=== PATIENT | female | born 1960 | race Caucasian/White ===

== ENCOUNTER 2017-06-25 14:29 | Observation (INO) | payer MEDICARE, SELFPAY ==
[2017-06-25] VITALS (12 sets, daily range): BP systolic 113–154; BP diastolic 69–100; PULSE 84–112; RESP 12–22; TEMP 37–37.2; O2SAT 94–99; BMI 37.7; BMI 37.3
--- NOTE | 2017-06-25 15:08 | CT_ITS ---
STUDY: CTA CHEST REASON FOR EXAM: Female, 56 years old. Chest heaviness and increased shortness of breath. RADIATION DOSAGE (If Supplied By Facility): CTDIvol = ( 12.93 ) mGy, DLP = ( 679.01 ) mGycm TECHNIQUE: The examination was performed with the intravenous administration of 100CC ml of Isovue 370 contrast material. Post-processing of the angiographic images was performed, with multiplanar reformation and 3D reconstruction. Individualized dose optimization techniques were used for this CT. COMPARISON: None. FINDINGS: Normal enhancement of the main pulmonary artery and right and left pulmonary arteries. Normal enhancement of the bilateral peripheral pulmonary arteries. There is no demonstrated pulmonary embolism. Normal thoracic aorta and visualized great vessels. There is no demonstrated aortic dissection. Normal heart and pericardium. Normal mediastinum. Normal hilar regions. Normal visualized trachea and bronchi. The lungs are well expanded. Normal pulmonary parenchyma. Normal pleura. Normal chest wall structures. There is mild multilevel thoracic spondylosis. There is a small hiatal hernia. There is a calcified gallstone. CT/CTA Chest W/WO Contrast IMPRESSION: No CTA demonstrated pulmonary embolism or arterial dissection. Electronically Signed: Georgia Leach MD at 17:29 EST , Service support ,
--- NOTE | 2017-06-25 15:08 | EKG12_ITS ---
Test Reason : CHEST HEAVINESS Blood Pressure : / mmHG Vent. Rate : 106 BPM Atrial Rate : 106 BPM P-R Int : 134 ms QRS Dur : 080 ms QT Int : 350 ms P-R-T Axes : 048 120 051 degrees QTc Int : 464 ms Sinus tachycardia Otherwise normal ECG Confirmed by MAYRA LEDESMA, PAUL ([id number]), photographic editor LISA ETIENNE ([id number]) on 06/27/2017 3:17:58 PM Referred By: Confirmed By:PAUL NUNEZ MD
--- NOTE | 2017-06-25 15:16 | ED.VISSUMM ---
- ER Visit Summary Date of Service: 06/25/17 Chief Complaint: Chest heaviness History of Present Illness: The patient is a 56 F presents with intermittent chest heaviness for the past 2 days. She states this is worsened with exertion. She also notes shortness of breath with exertion. She has had intermittent episodes of diaphoresis. She denies nausea or vomiting. She states she has a history of PE. She has a clotting disorder and is on Coumadin chronically. She states her INR has been subtherapeutic recently. She has a history of hypercholesterolemia and unknown family history of heart disease. Physical Examination: Vitals are stable. Patient is afebrile. Alert no acute distress. HEENT exam is unremarkable. Neck is supple. Lungs are clear and equal bilaterally. Heart is regular and tachycardic Abdomen is soft nontender nondistended. Extremities are symmetric edema Skin is warm and dry. No focal neurologic deficit. Remainder of exam is unremarkable. Emergency Department Course and Treatment: EKG is sinus tachycardia rate of 106. She was given aspirin on arrival. Chest x-ray shows no acute process. CBC, chemistries unremarkable. INR is 1.6. Troponin is less than 0.02. CTA chest shows no evidence of PE or dissection. On reevaluation, patient is chest pain-free. Due to her exertional symptoms, I feel she should be admitted for further cardiac workup. Discussed with the hospitalist. Disposition: Observation Impression: Chest pain This note was generated with [employer] dictation software. It may contain incorrect words, spelling, and punctuation that were not noted in review of the chart prior to signing ED Disposition - Plan for ED Patient: Chief Complaint: Shortness of Breath Referrals: Ruperto Jenkins MD [Primary Care Provider] -
[2017-06-25] MEDS: Aspirin 81 MG TAB.CHEW 324 MG PO (15:24)
--- NOTE | 2017-06-25 15:25 | RAD_ITS ---
STUDY: X-RAY CHEST REASON FOR EXAM: Female, 56 years old. Chest heaviness and shortness of breath. TECHNIQUE: Single AP portable view of the chest. COMPARISON: 06/09/2015. FINDINGS: The lungs are clear and expanded. There is no demonstrated pleural abnormality. Normal size heart. Normal mediastinum and royer. Normal visualized pulmonary arteries. Normal visualized aortic arch and descending thoracic aorta. Normal visualized thoracic spine. Normal visualized ribs, clavicles, and shoulders. There is no demonstrated abnormality of the visualized soft tissue structures of the upper abdomen. RAD/Chest 1 View (Portable) IMPRESSION: No active pulmonary disease. Electronically Signed: Wu Huynh MD at 15:43 EST Tel , Service support ,
[2017-06-25 15:39] LABS: Absolute Lymphocyte Count 1.53 X10^3/ul (0.83-4.51); Absolute Neutrophil Count 2.8 X10^3/uL (2.0-7.7); Basophil# 0.01 X10^3/uL; Basophil% 0.2 % (0-1); Eosinophil# 0.14 X10^3/uL; Eosinophils% 2.9 % (0-5); Hemoglobin 12.2 g/dl (12.0-15.0); Lymphocyte # 1.53 X10^3/ul (4.0); Lymphocyte % 32.1 % (19-41); Mean Corp Hgb Conc 32.1 g/gl (32-36); Mean Corpuscular Volume 90.5 fL (81-99); Monocyte# 0.29 X10^3/uL; Monocyte% 6.1 % (0-10); Neutrophil # 2.79 X10^3/uL (2.7-7.7); Neutrophil % 58.5 % (47-70); POSITIVE COUNT NO; POSITIVE DIFFERENTIAL NO; POSITIVE MORPHOLOGY NO; Platelet Count 159 K/mm3 (150-450); RBC Distribution Width CV 12.2 % (11.6-14.6); RBC Distribution Width SD 39.8 fl (35.1-43.9); White Blood Count 4.8 K/mm3 (4.4-11.0)
--- NOTE | 2017-06-25 15:50 | NURSING ---
PRO TIME HEMOLIZED
[2017-06-25 16:02] LABS: Anion Gap 6 (5-15); BUN 14 mg/dL (7-18); BUN/Creat Ratio 18.3 RATIO (10-20); Calcium,Total 8.9 mg/dL (8.5-10.1); Chloride 107 mmol/L (98-107); Creatinine, Serum 0.76 mg/dL (0.55-1.02); EST Glomerular Filtration Rate 83 mL/min (>60); Est Glom Filt Rate - Afr Amer 100 mL/min (>60); Estimated Creatinine Clearance 70.52 ml/min; Glucose 78 mg/dL (74-106); Potassium 4.4 mmol/L (3.5-5.1); Sodium Level 141 mmol/L (136-145)
[2017-06-25 16:08] LABS: International Normalized Ratio 1.6; Prothrombin Time (Protime)PT. 18.8 SECONDS (11.7-14.9)
--- NOTE | 2017-06-25 18:52 | HP.PCM_ITS ---
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 Patient feels chest heaviness retrosternal, with radiation to the right side of neck on mild exertion like walking within home or the parking lot. Patient also gets headache, diplopia because of her history of migraine, fibromyalgia and generalized anxiety disorder. She had a stress test and cardiac cath about 10 years ago and were normal. In ER, initial workup was negative. INR subtherapeutic 1.6. EKG shows sinus tachycardia at 106 bpm with T inversion in V1 to V2. Previous EKG in May 2015 similar T inversion. 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) Obesity (BMI 35.0-39.9 without comorbidity) (Chronic) Allergies morphine Allergy (Verified 06/25/17 14:30) Rash oxycodone HCl [From OxyContin] Allergy (Verified 06/25/17 14:30) Vomiting Penicillins [PCN] Allergy (Verified 06/25/17 14:30) Swelling ARTIFICIAL SWEETENER Allergy (Uncoded 06/25/17 14:30) Swelling Home Medications: Ambulatory Orders Medication Instructions Recorded Levothyroxine [Synthroid] 150 mcg PO DAILY 04/13/13 Warfarin [Coumadin] 6 mg PO MOWEFR 04/13/13 Bupropion HCl [Wellbutrin Xl] 150 mg PO DAILY 06/25/17 Cholecalciferol (Vitamin D3) 2,000 unit PO DAILY 06/25/17 [Vitamin D3] Cyclobenzaprine [Flexeril] 10 mg PO QHS 06/25/17 Furosemide [Lasix] 20 mg PO DAILY PRN 06/25/17 Phentermine HCl [Adipex-P] 37.5 mg PO DAILY 06/25/17 Venlafaxine HCl [Venlafaxine HCl 225 mg PO DAILY 06/25/17 ER] Warfarin [Coumadin ([facility])] 3 mg PO SUTUTHSA 06/25/17 Surgical History: no surgical history 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 Denies: Chest Pain, Palpitations Respiratory: Reports: Shortness of breath upon exertion. Denies: Cough, Shortness of breath at rest, Sputum production Gastrointestinal: Denies: Abdominal Pain, Nausea, Vomiting Genitourinary: Denies: Dysuria Musculoskeletal: Denies: Joint Pain, Joint Tenderness Skin: Denies: Rash, Wounds Neurological: Denies: Numbness, Tingling, Focal weakness Psychiatric: Denies: Anxiety, Depression, Homicidal Ideations, Suicidal Ideations Hematologic/ Lymphatic: Denies: Easy Bruising, Easy Bleeding VTE Information - Inpt Only VTE Present on Admission: No VTE Mechan Device Prophylaxis: Knee High MERCEDES Hose VTE Pharm Prophylaxis ordered?: Yes Patient Problems: Active and Suspected Problems Chest pain, exertional (Acute) - Physical Exam General: Alert, Oriented x3, Cooperative HEENT: Atraumatic, PERRLA, EOMI, Normocephalic Neck: Supple, No JVD, Negative Carotid Bruits Lungs: Clear to auscultation, Normal air movement, No rhonchi, No wheeze, No rales Cardiovascular: Regular Rhythm, Normal S1, Normal S2, No murmurs, Tachycardic Abdomen: Bowel Sounds Present, Soft, Non Tender, Non-Distended Extremities: Capillary Refill Less than 3 Seconds, Edema Skin: No rashes, No breakdown Musculoskeletal: No Tenderness to Palpation of Joints or Extremities Neurological: Cranial nerves II-XII grossly intact Psych/Mental Status: Normal Affect, Appropriate Vital Signs Temp Pulse Resp BP Pulse Ox 98.9 F 87 18 131/74 H 99 06/25/17 14:31 06/25/17 18:10 06/25/17 18:10 06/25/17 18:10 06/25/17 18:10 Oxygen Flow Rate (L/min) 1 Oxygen Delivery Method Nasal Cannula Weight: 219 lb 9.286 oz Body Mass Index (BMI) 37.7 Laboratory Tests Past 24 Hrs 06/25/17 06/25/17 06/25/17 15:23 15:23 15:23 WBC 4.8 RBC 4.20 Hgb 12.2 Hct 38.0 MCV 90.5 MCH 29.0 MCHC 32.1 RDW 12.2 RDW Differential 39.8 Plt Count 159 MPV 9.0 Immature Gran % (Auto) 0.200 Neut % (Auto) 58.5 Lymph % (Auto) 32.1 Pierce % (Auto) 6.1 Eos % (Auto) 2.9 Baso % (Auto) 0.2 Absolute Neuts (auto) 2.8 Absolute Lymphs (auto) 1.53 Total Counted Not Reportable PT Cancelled INR Cancelled Sodium 141 Potassium 4.4 Chloride 107 Carbon Dioxide 28.0 Anion Gap 6 BUN 14 Creatinine 0.76 Estim Creat Clear Calc 70.52 Est GFR (MDRD) Af Amer 100 Est GFR (MDRD) Non-Af 83 BUN/Creatinine Ratio 18.3 Glucose 78 Calcium 8.9 Troponin I < 0.02 06/25/17 15:50 WBC RBC Hgb Hct MCV MCH MCHC RDW RDW Differential Plt Count MPV Immature Gran % (Auto) Neut % (Auto) Lymph % (Auto) Pierce % (Auto) Eos % (Auto) Baso % (Auto) Absolute Neuts (auto) Absolute Lymphs (auto) Total Counted PT 18.8 H INR 1.6 Sodium Potassium Chloride Carbon Dioxide Anion Gap BUN Creatinine Estim Creat Clear Calc Est GFR (MDRD) Af Amer Est GFR (MDRD) Non-Af BUN/Creatinine Ratio Glucose Calcium Troponin I Assessment/Plan Active and Suspected Problems Chest pain, exertional (Acute) The patient is a 56 year old F with multiple comorbidities including 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 Patient feels chest heaviness retrosternal, with radiation to the right side of neck on mild exertion like walking within home or the parking lot. Patient also gets headache, diplopia because of her history of migraine, fibromyalgia and generalized anxiety disorder. She had a stress test and cardiac cath about 10 years ago and were normal. In ER, initial workup was negative. INR subtherapeutic 1.6. EKG shows sinus tachycardia at 106 bpm with T inversion in V1 to V2. Previous EKG in May 2015 similar T inversion. First troponin negative. 1. Exertional chest pain with high suspicion of unstable angina: Patient is being admitted in the PCU. On ACS protocol with serial cardiac enzymes. On nitro ointment as needed, baby aspirin. Patient is already on Coumadin for history of DVT with hereditary hypercoagulable disorder. If troponin comes positive or chest pain continues, can consult cardiology. 2. 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 Check INR daily and if INR is still subtherapeutic less than 1.8, supplement with Lovenox. Next CBC tomorrow a.m. 3. hypothyroidism: Continue Synthroid. Free T4 and TSH tomorrow a.m. Other multiple comorbidities include migraine headache possible ocular migraine, fibromyalgia, generalized anxiety disorder/panic attack, insomnia cervical root impingement and osteoarthritis and varicose vein: Home medication reconciliation done. Hold Adipex-P. Clinical Impression(s) from Imaging Studies Chest CTA 06/25/17 15:08 IMPRESSION: No CTA demonstrated pulmonary embolism or arterial dissection. Chest X-Ray 06/25/17 15:25 IMPRESSION: No active pulmonary disease. Laboratory Results 06/25/17 15:23: WBC 4.8, RBC 4.20, Hgb 12.2, Hct 38.0, MCV 90.5, MCH 29.0, MCHC 32.1, RDW 12.2, RDW Differential 39.8, Plt Count 159, MPV 9.0, Immature Gran % ( Auto) 0.200, Neut % (Auto) 58.5, Lymph % (Auto) 32.1, Pierce % (Auto) 6.1, Eos % ( Auto) 2.9, Baso % (Auto) 0.2, Absolute Neuts (auto) 2.8, Absolute Lymphs (auto) 1.53, Total Counted Not Reportable 06/25/17 15:23: PT Cancelled, INR Cancelled 06/25/17 15:23: Sodium 141, Potassium 4.4, Chloride 107, Carbon Dioxide 28.0, Anion Gap 6, BUN 14, Creatinine 0.76, Estim Creat Clear Calc 70.52, Est GFR ( MDRD) Af Amer 100, Est GFR (MDRD) Non-Af 83, BUN/Creatinine Ratio 18.3, Glucose 78, Calcium 8.9, Troponin I < 0.02 06/25/17 15:50: PT 18.8 H, INR 1.6 Code Visit OBSV E&M: 20576 Initial observation care L3
[2017-06-25 20:10] LABS: BNP,B-Type NATRIURETIC PEPTIDE 5.3 pg/mL (0-100)
[2017-06-25] MEDS: Enoxaparin 100 MG/ML Syringe SC (20:16)
[2017-06-25] MEDS: Acetaminophen 325 MG Tablet 650 MG PO (20:27)
[2017-06-25] MEDS: 0.9% NaCl Peripheral Flush Adult/Peds IV (22:14)
--- NOTE | 2017-06-25 23:03 | CPS ---
pt placed on hospital bipap -could not remember home settings-pt placed on 01/20-[facility]
[2017-06-26] VITALS (15 sets, daily range): BP systolic 109–126; BP diastolic 59–74; PULSE 66–103; RESP 12–18; TEMP 36.6–37.7; O2SAT 93–96
--- NOTE | 2017-06-26 04:23 | CPS ---
pt has own bipap at home-did not know her settings-was placed on hospital bipap 01/20 21% [facility]-
[2017-06-26] MEDS: Acetaminophen 325 MG Tablet 650 MG PO ×2 (05:26→16:07)
[2017-06-26] MEDS: Levothyroxine 150 MCG Tablet PO (05:26)
[2017-06-26 06:54] LABS: International Normalized Ratio 1.7; Prothrombin Time (Protime)PT. 19.7 SECONDS (11.7-14.9)
[2017-06-26 07:23] LABS: Cholesterol 168 mg/dL (200); High Density Lipoprotein 40 mg/dL; Thyroid Stim Hormone (TSH) < 0.01 uIU/mL (0.358-3.74); Triglycerides 158 mg/dL; Very Low Density Lipoprotein 32 mg/dL (5-40)
[2017-06-26] MEDS: Aspirin E.C. 81 MG Tablet PO (09:03)
[2017-06-26] MEDS: Enoxaparin 100 MG/ML Syringe SC ×2 (13:42→21:05)
--- NOTE | 2017-06-26 14:25 | PN_ITS ---
<Steve Iglesias - Last Filed: 06/26/17 14:14> Patient Problems: Active and Suspected Problems Chest pain, exertional (Acute) Subjective: She continues to have 3/10 chest heaviness midsternally, and SOB with exertion like getting up to use the bathroom. She also feels that she is experiencing a migraine aura with diplopia, and dizziness/LH. She has an all over headache. She denies palpitations. She has no cough. She is compliant with her Cpap. She does not want to receive nitro as she gets worse headaches with it. She is on synthroid for chronically low thyroid - not because she has had thyroid ablation , surgery, or cancer. She has been on phentermine for weight loss. For migraine at home she only takes tylenol, in the past she has used imitrex. She follow Jian from [facility]. - Physical Exam General: Alert, Oriented x3, Cooperative HEENT: Atraumatic, PERRLA, EOMI, Normocephalic Neck: Supple, No JVD, Negative Carotid Bruits Lungs: Clear to auscultation, Normal air movement Cardiovascular: Regular rate, No murmurs Abdomen: Bowel Sounds Present, Soft, Non Tender Extremities: No edema, Capillary Refill Less than 3 Seconds Skin: No rashes, No breakdown Musculoskeletal: No Tenderness to Palpation of Joints or Extremities Neurological: Cranial nerves II-XII grossly intact Psych/Mental Status: Normal Affect, Appropriate Vital Signs Temp Pulse Resp BP Pulse Ox 97.8 F 90 16 109/59 L 93 06/26/17 09:00 06/26/17 10:58 06/26/17 09:11 06/26/17 09:03 06/26/17 09:00 Oxygen Delivery Method Room Air Weight: 98.6 kg Body Mass Index (BMI) 37.3 Intake and Output for Last 24 Hours 06/24/17 06/25/17 06/27/17 23:59 23:59 00:59 Intake Total 240 / 240 480 / 480 Balance 240 / 240 480 / 480 Laboratory Tests Past 24 Hrs 06/25/17 06/25/17 06/25/17 19:30 19:30 19:30 PT INR Magnesium 2.0 Troponin I < 0.02 B-Natriuretic Peptide 5.3 Triglycerides Cholesterol LDL Cholesterol VLDL Cholesterol HDL Cholesterol TSH Free T4 03/02/0206/26/17 06/26/17 23:32 06:30 06:30 PT 19.7 H INR 1.7 Magnesium Troponin I < 0.02 B-Natriuretic Peptide Triglycerides 158 Cholesterol 168 LDL Cholesterol 96 VLDL Cholesterol 32 HDL Cholesterol 40 TSH < 0.01 L Free T4 1.50 H 06/26/17 06:30 PT INR Magnesium Troponin I < 0.02 B-Natriuretic Peptide Triglycerides Cholesterol LDL Cholesterol VLDL Cholesterol HDL Cholesterol TSH Free T4 Assessment/Plan Active and Suspected Problems Chest pain, exertional (Acute) 1. Chest heaviness with exertional dyspnea - currently 06/25. Troponin negative. BNP negative. Stress test tomorrow. Conitnue aspirin. I am also concerned with her being on multiple stimulant medications including buproprion, phentermine ( held), and too high of a dose of synthroid. EKG with T wave inversions in V1 and V2. LDL 96. HTN and tachy present on admission have resolved on their own. 2. Hx of DVT - with type 1 plasminogen activator inhibitor deficiency - on coumadin - subtherapeutic. Lovenox bridge started. CTA chest negative for PE. 3. Acute migraine with aura - topamax added. Defer triptans with concern for cardiac conditions. 4. Chronic pain, fibromyalgia - continue home meds. 5. Hypothyroidism - TSH supressed, T4 high, decreased daily dose of synthroid as she is not supposed to be on a suppressive dose. 6. Obesity - diet control. At this time I advised not resuming phentermine given her chest pain. Dietary eval. DVT ppx: lovenox bridge with coumadin DC planning: pending stress results This patient was seen by Steve Iglesias PA-C under the supervision of Doctor Mayer. <Eloisa Mayer - Last Filed: 06/26/17 17:16> - Physical Exam Vital Signs Temp Pulse Resp BP Pulse Ox 97.9 F 99 18 123/60 H 94 06/26/17 15:00 06/26/17 15:00 06/26/17 15:00 06/26/17 15:00 06/26/17 15:00 Oxygen Delivery Method Room Air Weight: 98.6 kg Body Mass Index (BMI) 37.3 Intake and Output for Last 24 Hours 03/09/18 03/10/18 03/12/18 23:59 23:59 00:59 Intake Total 240 / 240 480 / 480 Balance 240 / 240 480 / 480 Laboratory Tests Past 24 Hrs 06/25/17 06/25/17 06/25/17 19:30 19:30 19:30 PT INR Magnesium 2.0 Troponin I < 0.02 B-Natriuretic Peptide 5.3 Triglycerides Cholesterol LDL Cholesterol VLDL Cholesterol HDL Cholesterol TSH Free T4 06/25/17 06/26/17 06/26/17 23:32 06:30 06:30 PT 19.7 H INR 1.7 Magnesium Troponin I < 0.02 B-Natriuretic Peptide Triglycerides 158 Cholesterol 168 LDL Cholesterol 96 VLDL Cholesterol 32 HDL Cholesterol 40 TSH < 0.01 L Free T4 1.50 H 06/26/17 06:30 PT INR Magnesium Troponin I < 0.02 B-Natriuretic Peptide Triglycerides Cholesterol LDL Cholesterol VLDL Cholesterol HDL Cholesterol TSH Free T4 Assessment/Plan Patient was seen and examined independently of Steve IVEY. I agree with his interval history, physical exam and A/P as outlined above in his note. In brief, Patient complains of severe headache. Has flashes of light, occasional numbness of tip of tongue. Still has substernal chest pressure. EKG shows no acute ST-T changes, troponin to be negative. Will get stress test in a.m. Start patient on Topamax, add ibuprofen as needed, patient would need neurology follow-up on discharge. Will also start patient on therapeutic Lovenox until patient's INR is therapeutic. Code Visit Inpatient E&M: 72331 Subs Hosp L2
--- NOTE | 2017-06-26 17:51 | EKG12_ITS ---
Test Reason : AM Blood Pressure : / mmHG Vent. Rate : 094 BPM Atrial Rate : 094 BPM P-R Int : 126 ms QRS Dur : 080 ms QT Int : 376 ms P-R-T Axes : 036 083 043 degrees QTc Int : 470 ms Sinus rhythm with Premature atrial complexes Otherwise normal ECG When compared with ECG of 26-JUN-2017 18:01, MANUAL COMPARISON REQUIRED, DATA IS UNCONFIRMED Confirmed by MAYRA LEDESMA, PAUL ([id number]), content editor LISA ETIENNE ([id number]) on 06/29/2017 4:15:38 PM Referred By: MARCELA Confirmed By:PAUL NUNEZ MD
--- NOTE | 2017-06-26 18:17 | CPS ---
Patient's own unit set-up at bedside.
[2017-06-26 18:52] LABS: Magnesium 1.9 mg/dL (1.6-2.6)
[2017-06-26] MEDS: Topiramate 25 MG Tablet PO (21:05)
[2017-06-27] VITALS (8 sets, daily range): BP systolic 109–125; BP diastolic 65–79; PULSE 80–135; RESP 14–18; TEMP 36.2–36.8; O2SAT 94–105
[2017-06-27] MEDS: Levothyroxine 137 MCG Tablet PO (05:42)
[2017-06-27] MEDS: Aspirin E.C. 81 MG Tablet PO (05:42)
--- NOTE | 2017-06-27 05:55 | EKG12_ITS ---
Test Reason : TACHY Blood Pressure : / mmHG Vent. Rate : 114 BPM Atrial Rate : 114 BPM P-R Int : 124 ms QRS Dur : 084 ms QT Int : 336 ms P-R-T Axes : 047 122 050 degrees QTc Int : 463 ms Sinus tachycardia Otherwise normal ECG When compared with ECG of 25-JUN-2017 14:36, MANUAL COMPARISON REQUIRED, DATA IS UNCONFIRMED Confirmed by MAYRA LEDESMA, PAUL ([id number]), art editor LISA ETIENNE ([id number]) on 06/29/2017 4:17:36 PM Referred By: IRLANDA Confirmed By:PAUL NUNEZ MD
[2017-06-27 06:15] LABS: Absolute Lymphocyte Count 2.85 X10^3/ul (0.83-4.51); Absolute Neutrophil Count 2.3 X10^3/uL (2.0-7.7); Basophil# 0.02 X10^3/uL; Basophil% 0.4 % (0-1); Eosinophil# 0.19 X10^3/uL; Eosinophils% 3.3 % (0-5); Hematocrit 41.6 % (37-47); Hemoglobin 13.5 g/dl (12.0-15.0); Lymphocyte # 2.85 X10^3/ul (4.0); Lymphocyte % 49.9 % (19-41); Mean Corp Hgb Conc 32.5 g/gl (32-36); Mean Corpuscular Hgb 29.3 pg (27.0-32.0); Mean Corpuscular Volume 90.4 fL (81-99); Mean Platelet Vol. 9.3 fl (6.2-12.0); Monocyte# 0.35 X10^3/uL; Monocyte% 6.1 % (0-10); Neutrophil # 2.29 X10^3/uL (2.7-7.7); Neutrophil % 40.1 % (47-70); Platelet Count 180 K/mm3 (150-450); RBC Distribution Width CV 12.2 % (11.6-14.6); RBC Distribution Width SD 39.8 fl (35.1-43.9); White Blood Count 5.7 K/mm3 (4.4-11.0)
[2017-06-27 06:17] LABS: POSITIVE COUNT NO; POSITIVE DIFFERENTIAL NO; POSITIVE MORPHOLOGY NO
[2017-06-27 06:20] LABS: Prothrombin Time (Protime)PT. 22.4 SECONDS (11.7-14.9)
[2017-06-27 06:34] LABS: Partial Thromboplast Time 114.9 Seconds (24.1-36.2)
[2017-06-27 06:45] LABS: Anion Gap 8 (5-15); BUN 12 mg/dL (7-18); BUN/Creat Ratio 15.4 RATIO (10-20); Calcium,Total 8.7 mg/dL (8.5-10.1); Chloride 106 mmol/L (98-107); Creatinine, Serum 0.78 mg/dL (0.55-1.02); EST Glomerular Filtration Rate 81 mL/min (>60); Est Glom Filt Rate - Afr Amer 98 mL/min (>60); Estimated Creatinine Clearance 68.72 ml/min; Glucose 98 mg/dL (74-106); Potassium 4.1 mmol/L (3.5-5.1); Sodium Level 142 mmol/L (136-145)
[2017-06-27] MEDS: Topiramate 25 MG Tablet PO (08:49)
--- NOTE | 2017-06-27 10:13 | STRESSREP ---
Stress Test Report Exercise myocardial perfusion stress test. 56-year-old lady with a history of chest pain. Stress protocol: Resting EKG demonstrates sinus tachycardia with a rate of 107 bpm. Resting blood pressure is 130/90 mmHg. The patient exercised according to the regular Maynor protocol for total duration of 3 minutes. The maximum heart rate attained was 171 bpm which was 104% of the maximum predicted heart rate the maximum workload attained was 4.6 metabolic equivalents. At rest there were no ST or T-wave changes noted suggest ischemia peak exercise upsloping ST changes only were noted with no meet the criteria for ischemia. No clinical angina was noted. The test was terminated due to fatigue and shortness of breath. The resting blood pressure was 130/90 mmHg with a peak blood pressure 144/52 mmHg. Rate pressure product was 24,300. Myocardial perfusion protocol: 14.2 mCi of technetium 99m sestamibi was injected at rest. The patient exercised according to regular Maynor protocol for 3 minutes and at peak exercise 44.6 mCi of technetium 99m sestamibi was injected. Stress images were obtained. Stress and rest images were reconstructed and compared in the short axis vertical long and horizontal long axis. Gated images were also obtained. Perfusion SPECT analysis: Review of the stress images demonstrate normal uptake of tracer noted in all areas of the myocardium. The resting images similarly demonstrate normal uptake of tracer noted in all areas of the myocardium. No areas of reversibility are noted suggest ischemia. No previous infarct is noted. Gated SPECT analysis: The gated ejection fraction is 77%. Conclusion: Normal exercise myocardial perfusion stress test at a low workload. Preserved ejection fraction.
--- NOTE | 2017-06-27 10:25 | ECHOD_ITS ---
Reason For Study: Arrhythmia Procedure This was a 2D Doppler, Color Flow transthoracic echocardiogram. Exam performed portable in patient room. Left Ventricle Normal LV size. Mild concentric left ventricular hypertrophy. Left ventricular systolic function is normal. The estimated ejection fraction is 65 %. Transmitral diastolic flow velocities suggest mild (stage 1) diastolic dysfunction (reversed pattern). No regional wall motion abnormalities noted. Right Ventricle Normal RV size. Normal systolic function. Atria Normal left atrium. Normal right atrium. Mitral Valve Normal mitral valve. Tricuspid Valve Normal tricuspid valve. Aortic Valve The aortic valve is not well visualized. Pulmonic Valve The pulmonic valve is not well visualized. Great Vessels Normal aortic root. The pulmonary artery is normal size. Normal inferior vena cava. Pericardium/Pleural No pericardial effusion. Medication 22 gauge I.V. with prn adaptor inserted into right arm. Definity0.3ml given slow IV push to enhance endocardial definition. MMode/2D Measurements & Calculations LVIDd: 3.7 cm IVSd: 1.3 cm Ao root diam: 2.9 cm LVIDs: 2.2 cm LVPWd: 1.2 cm LA dimension: 3.5 cm FS: 38.9 % LAV(MOD-bp): 32.3 ml LAV(MOD-bp) Indexed: 16.0 ml/m2 LA A4 area: 14.0 cm2 RA A4 area: 7.1 cm2 LAV(MOD-sp2): 28.3 ml LAV(MOD-sp4): 39.4 ml Doppler Measurements & Calculations MV E max justino: 69.8 cm/sec Lat Peak E' Justino: 8.9 cm/sec Med Peak E' Justino: 4.8 cm/sec MV A max justino: 89.8 cm/sec E/E' lat: 7.8 E/E' med: 14.6 MV E/A: 0.78 Ao V2 max: 138.5 cm/sec LV V1 max: 104.5 cm/sec PA V2 max: 110.4 cm/sec Ao max P.7 mmHg LV V1 max P.4 mmHg Interpretation Summary Normal LV size. Mild concentric left ventricular hypertrophy. Left ventricular systolic function is normal. The estimated ejection fraction is 65 %. Contrast injection was performed. Ordering Physician: Steve Iglesias Referring Physician: MD Gregory Ruperto Performed By: Za Cheema RDCS
[2017-06-27] MEDS: Enoxaparin 100 MG/ML Syringe SC (10:28)
--- NOTE | 2017-06-27 11:50 | PCM.DC ---
- Discharge Diagnoses Current Active Problems: Current Active and Chronic Problems Chest pain, exertional (Acute) You will use the following diet at home:: Cardiac Your food should be the consistency of: Regular Your liquids should be the consistency of: Regular/Thin Discharge Activity: Return to Normal Activity Instructions: Cardiac Nuclear Imaging (Nuclear Stress Test) Allergies/Adverse Reactions: Allergies morphine Allergy (Verified 06/25/17 14:30) Rash oxycodone HCl [From OxyContin] Allergy (Verified 06/25/17 14:30) Vomiting Penicillins [PCN] Allergy (Verified 06/25/17 14:30) Swelling ARTIFICIAL SWEETENER Allergy (Uncoded 06/25/17 14:30) Swelling Medications to take at Discharge Warfarin [Coumadin] 6 mg PO MOWEFR 04/13/13 Bupropion HCl [Wellbutrin Xl] 150 mg PO DAILY 06/25/17 Cholecalciferol (Vitamin D3) [Vitamin D3] 2,000 unit PO DAILY 06/25/17 Cyclobenzaprine [Flexeril] 10 mg PO QHS 06/25/17 Furosemide [Lasix] 20 mg PO DAILY PRN 06/25/17 Venlafaxine HCl [Venlafaxine HCl ER] 150 mg PO DAILY 06/25/17 Warfarin [Coumadin] 3 mg PO SUTUTHSA 06/25/17 Aspirin E.C. [Ecotrin] 81 mg PO DAILY@0800 tablet 06/27/17 Levothyroxine [Synthroid] 137 mcg PO DAILY@0600 #30 tab 06/27/17 The following prescriptions were given: Levothyroxine [Synthroid] 137 mcg PO DAILY@0600 #30 tab Primary Care Physician: Ruperto Jenkins MD [Primary Care Provider] - Please follow up with your Primary Care Physician in: 1-2 weeks Proposed Discharge Date: 06/27/17
--- NOTE | 2017-06-27 16:28 | PCM.DC.SUM ---
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 RAD/Chest 1 View (Portable) IMPRESSION: No active pulmonary disease. Operations: None Procedures: 2-D Echocardiogram, Stress test Summary of Care Provided: Physical exam on day of discharge: General: Resting comfortably NAD Psych: A/Ox3 normal affect HEENT: [place]ARR[place] AT NC Neck: Supple NT CV: RRR no m/t/r/g/h Resp: CTA Abd: [id number] Soft NT no guarding or rigidity Ext: DP2+= no edema Skin: W/D normal turgor Lymph/Heme: No active bleeding or adenopathy Neuro: CN2-12 intact Hospital course: The patient is a 56 year old F who presents to the emergency room with chest pain with shortness of breath on exertion ongoing for 3 days described as a heaviness as retrosternal with radiation to the right side of the neck. Patient had a history of type I plasminogen activator inhibitor deficiency you who is on Coumadin. Her INR was subtherapeutic and she was tachycardic in the ER so CTA was done in the ER which was negative for PE. Lovenox bridge was provided. Patient also had a history of hypothyroidism, migraine with aura which she felt that she was experiencing with lightheadedness and diplopia and bilateral headache. She had a negative troponin and negative EKG. She is admitted for chest pain rule out. She underwent a stress test which was negative. She continued to have ongoing intermittent chest pain, and demonstrated episodes of sinus tachycardia especially with exertion. An echocardiogram was done which had mild LVH, EF 65%, stage 1 diastolic dysfxn. Her TSH was checked and found to be suppressed with an elevated T4. She is not supposed to be on a suppressive dose. Her levothyroxine was decreased. Also noted that she was taking phentermine for weight loss which we advised her to stop taking at this time. Patient was recently started on bupropion for seasonal depression as well which could be contributing to a combined stimulant effect with the phentermine and excessive thyroxine. I did not advise changing the bupropion at this time. Advised to have close follow-up with her PCP given the concerns for her multiple medication interactions and her ongoing intermittent tachycardia. INR was 2 at the time of discharge, advised her to have a repeat in 3 days and to continue her normal home dose of warfarin. She was given Tylenol and Topamax for her migraine while here. She was discharged home in stable condition. This patient was seen by Steve Iglesias PA-C under the supervision of Doctor Rosario. [] Discharge Diet: Low fat/ Low Cholesterol, 4000 mg Sodium Diet Discharge Activity: Return to Normal Activity Home Medications: Medications to take at Discharge Warfarin [Coumadin] 6 mg PO MOWEFR 04/13/13 Bupropion HCl [Wellbutrin Xl] 150 mg PO DAILY 06/25/17 Cholecalciferol (Vitamin D3) [Vitamin D3] 2,000 unit PO DAILY 06/25/17 Cyclobenzaprine [Flexeril] 10 mg PO QHS 06/25/17 Furosemide [Lasix] 20 mg PO DAILY PRN 06/25/17 Venlafaxine HCl [Venlafaxine HCl ER] 150 mg PO DAILY 06/25/17 Warfarin [Coumadin] 3 mg PO SUTUTHSA 06/25/17 Aspirin E.C. [Ecotrin] 81 mg PO DAILY@0800 tablet 06/27/17 Levothyroxine [Synthroid] 137 mcg PO DAILY@0600 #30 tab 06/27/17 Following Prescrptions Were Given to Patient: Levothyroxine [Synthroid] 137 mcg PO DAILY@0600 #30 tab Primary Care Physician: Ruperto Jenkins MD [Primary Care Provider] - Please follow up with your Primary Care Physician in: 1-2 weeks Patient Instructions: Cardiac Nuclear Imaging (Nuclear Stress Test) Disposition: Home Minutes spent on discharge:: 35 Patient Condition:: Stable Meaningful Use Info Meaningful Use Diagnoses (Choose all that apply): None applicable <Irineo Rosario - Last Filed: 06/27/17 17:00> Discharge Date and Diagnosis - Secondary Discharge Diagnosis Chronic Problems Generalized anxiety disorder (Chronic) Hypothyroid (Chronic) Migraine (Chronic) Fibromyalgia (Chronic) Osteoarthritis (Chronic) 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 Patient was placed on a monitored bed underwent CT of the chest to rule out PE negative study. Patient had serial cardiac enzymes as well as negative nuclear stress test to rule out myocardial ischemia was felt patient chest pain was secondary to musculoskeletal pain. Patient has history of hypothyroidism and was on levothyroxine however her TSH was undetectable her levothyroxine dose was therefore adjusted prior to discharge Patient was seen and examined by myself on the day of discharge her discharge instructions as well as med reconciliation reviewed conjunction with Steve Iglesias. Hospital course as documented above Total time spent on discharge process 35 minutes Code Visit OBSV E&M: [id number] Observation care discharge
== END 2017-06-27 11:51 | disposition home or self-care (01) ==
LOC: ED 18:48 → PCU 19:02
PROVIDERS: Physician Assistant; Admitting Provider Internal Medicine; Emergency Provider Emergency Medicine; Family Provider Family Medicine; PCP Family Medicine; Visit Provider Internal Medicine
DX: R07.89 Other chest pain (principal); R06.02 Shortness of breath; G43.109 Migraine with aura, not intractable, without status migrainosus; E03.9 Hypothyroidism, unspecified; M79.7 Fibromyalgia; E66.9 Obesity, unspecified; Z68.37 Body mass index [BMI] 37.0-37.9, adult; Z71.3 Dietary counseling and surveillance; Z86.718 Personal history of other venous thrombosis and embolism; Z79.01 Long term (current) use of anticoagulants; Z79.899 Other long term (current) drug therapy; Z86.711 Personal history of pulmonary embolism; E78.00 Pure hypercholesterolemia, unspecified; F41.1 Generalized anxiety disorder; M19.90 Unspecified osteoarthritis, unspecified site; G54.2 Cervical root disorders, not elsewhere classified; G89.4 Chronic pain syndrome
CPT/HCPCS: 36415; 71045; 71275; 78452; 80048; 80061; 83735; 83880; 84439; 84443; 84484; 85025; 85610; 85730; 93005; 93017; 93306; 94002; 94003; 96372; 99218; 99285; A9500; Q9957; Q9967; A4216; G0378

== ENCOUNTER → 2017-09-23 09:54 | Outpatient (CLI) | payer MEDICARE, SELFPAY ==
--- NOTE | 2017-09-23 09:54 | DT_ITS ---
This patient was seen during an EMR downtime September 19, 2017 - September 26, 2017. This patient may have a combination of paper and electronic documentation or all paper documentation. All documentation is viewable within the e-chart portion of [facility] for each patient visit.
[2017-09-23 14:46] LABS: T4 Free Direct 1.54 ng/dL (0.76-1.46); Thyroid Stim Hormone (TSH) < 0.01 uIU/mL (0.358-3.74)
== END ==
PROVIDERS: Family Provider Internal Medicine; PCP Internal Medicine; Visit Provider Internal Medicine
DX: E03.9 Hypothyroidism, unspecified (principal)
CPT/HCPCS: 36415; 84439; 84443

== ENCOUNTER → 2017-10-05 15:20 | Outpatient (CLI) | payer MEDICARE, SELFPAY ==
[2017-10-05 15:56] LABS: Hematocrit 39.2 % (37-47); Hemoglobin 12.7 g/dl (12.0-15.0); Immature Platelet Fraction 1.1 % (1.0-7.9); Mean Corp Hgb Conc 32.4 g/gl (32-36); Mean Corpuscular Volume 89.5 fL (81-99); Mean Platelet Vol. 8.7 fl (6.2-12.0); Platelet Count 217 K/mm3 (150-450); RBC Distribution Width CV 12.5 % (11.6-14.6); RBC Distribution Width SD 40.4 fl (35.1-43.9); RET-HE 30.6 pg (30-35); Red Blood Count 4.38 M/mm3 (4.2-5.4); Reticulocyte Count 1.06 % (0.5-1.5); Scan Indicated on CBC? Y/N NO; White Blood Count 6.2 K/mm3 (4.4-11.0)
[2017-10-05 16:30] LABS: Vitamin B12 560 pg/mL (211-911)
[2017-10-05 16:35] LABS: ALB/GLOB Ratio 0.9 RATIO (0.9-2.4); AST(SGOT) 28 U/L (15-37); Alanine Aminotransfer ALT/SGPT 39 U/L (13-56); Albumin, Serum 3.6 g/dL (3.2-5.0); Alkaline Phosphatase 112 U/L (45-117); Anion Gap 6 (5-15); BUN 11 mg/dL (7-18); BUN/Creat Ratio 14.5 RATIO (10-20); Calcium,Total 8.9 mg/dL (8.5-10.1); Chloride 105 mmol/L (98-107); Creatinine, Serum 0.76 mg/dL (0.55-1.02); EST Glomerular Filtration Rate 83 mL/min (>60); Est Glom Filt Rate - Afr Amer 101 mL/min (>60); Globulin 4.1 g/dL (2.2-4.2); Glucose 114 mg/dL (74-106); Phosphorus 2.4 mg/dL (2.5-4.9); Potassium 4.2 mmol/L (3.5-5.1); Protein, Total 7.7 g/dL (6.4-8.2); Rheumatoid Factor < 10.0 IU/mL (<15); Sodium Level 142 mmol/L (136-145)
[2017-10-05 17:09] LABS: Erythrocyte Sedimentation Rate 18 mm/hr (0-30)
[2017-10-07 03:47] LABS: Rapid Plasmin Reagin (RPR) NONREACTIVE (NONREACTIVE)
[2017-10-08 09:25] LABS: Arsenic 7245 7 ug/L (2-23)
== END ==
PROVIDERS: Family Provider Internal Medicine; PCP Internal Medicine; Visit Provider Nurse Practitioner Acute Care
DX: R53.1 Weakness (principal); R20.0 Anesthesia of skin; R20.2 Paresthesia of skin; R55 Syncope and collapse
CPT/HCPCS: 36415; 80053; 82175; 82607; 82746; 83655; 83735; 83825; 84100; 85027; 85045; 85652; 86431; 86592

== ENCOUNTER → 2017-10-14 10:56 | Outpatient (CLI) | payer MEDICARE, SELFPAY ==
--- NOTE | 2017-10-14 11:30 | MRI_ITS ---
STUDY: MRI BRAIN WITH AND WITHOUT CONTRAST REASON FOR EXAM: Female, 56 years old. The patient presents with a history of numbness and tingling with syncope and weakness. Assess for possible multiple sclerosis. TECHNIQUE: Standardized multiplanar fat and water weighted pulse sequences were obtained. 11 ml of Gadavist contrast material was administered intravenously for the contrast portion of the examination. COMPARISON: None. FINDINGS: Normal size of the ventricles and extra-axial spaces for the patient's age. Normal white matter tracts of the supratentorial brain. There are no demyelinating plagues of the supratentorial brain, brainstem or cerebellum. There are no findings suspicious for multiple sclerosis (MS). There is no evidence for recent intracranial ischemia or other cause of cytotoxic edema on diffusion weighted imaging (DWI). Normal bilateral basal ganglia. Normal thalami. There is no extra-axial fluid accumulation. Normal flow voids within the major intracranial circulation suggesting patency by spin echo criteria. Normal venous enhancement. There is no enhancing intra-axial or extra-axial abnormality. Normal sella turcica, pituitary gland, infundibular stalk, optic chiasm and hypothalamus. Normal tectal plate and pineal gland. Normal midbrain, amanda and medulla. Normal cerebellum. Normal basal cisterns. Normal bilateral temporal bones. Normal bilateral internal auditory canals. No demonstrated orbital abnormality, within the constraints of a routine brain study. Normal visualized paranasal sinuses. Normal calvarium and skull base. Normal visualized soft tissue structures. Normal visualized upper cervical spine. MRI/Brain W/WO Contrast IMPRESSION: 1. Normal unenhanced and enhanced MRI of the brain. 2. No demonstrated demyelinating plaques. Electronically Signed: Bert Kim DO at 11:26 EDT Tel , Service support ,
== END ==
PROVIDERS: Family Provider Internal Medicine; PCP Internal Medicine; Visit Provider Nurse Practitioner Acute Care
DX: R55 Syncope and collapse (principal); R51 Headache; R53.1 Weakness; G93.9 Disorder of brain, unspecified; R20.0 Anesthesia of skin; R20.2 Paresthesia of skin
CPT/HCPCS: 70553; A9585

== ENCOUNTER → 2017-10-24 13:13 | Outpatient (CLI) | payer MEDICARE, SELFPAY ==
--- NOTE | 2017-10-24 13:16 | RAD_ITS ---
STUDY: SWALLOWING STUDY REASON FOR EXAM: Female, 56 years old. Dysphagia. TECHNIQUE: The examination was performed with Speech Pathology in attendance. Under fluoroscopic observation, the patient ingested thin barium, thick barium, barium pudding, and barium coated cracker. FLUOROSCOPY TIME: 2:19 minutes/seconds. 1899 fluoroscopic images were obtained. RADIOLOGIST INVOLVEMENT: Radiologist was present and providing direct supervision. COMPARISON: None. FINDINGS: The following was observed during swallowing of the various mixtures of barium: Thin Barium: Intermittent transient penetration with ingestion of thin liquids. Barium Pudding: There was no evidence of aspiration or laryngeal penetration. Barium Coated Cracker: There was no evidence of aspiration or laryngeal penetration. There is hypertrophy of the cricopharyngeus muscle. RAD/Swallowing Function w/Video IMPRESSION: Transient intermittent penetration with ingestion of thin liquids. Hypertrophy of the cricopharyngeus muscle. The swallow study findings were discussed with the patient by the speech pathologist at the conclusion of the examination. Please see speech pathology report for more information and recommendations. Electronically Signed: Anant Neff MD at 14:43 EDT Tel [phone], Service support ,
--- NOTE | 2017-10-24 13:30 | SP.MBSS_ITS ---
PRIMARY / SECONDARY DIAGNOSIS: dysphagia (R13.10) REFERRING PHYSICIAN: TAYLOR Lazo CURRENT DIET: regular textures, thin liquids DENTITION: WFL MENTAL STATUS: WNL RESPIRATORY STATUS: O2 via room air PREVIOUS MODIFIED BARIUM SWALLOW STUDY: none REASON FOR REFERRAL: Patient is a 56 year old female referred for a modified barium swallow (MBS) study to objectively assess the Patients oropharyngeal swallow function under fluoroscopy secondary to reported coughing during ingestion of both solids and liquids (primarily liquids) with coughing generally occurring immediately prior to or directly after deglutition, with symptoms somewhat progressing in frequency, occurring approximately 1-2 times per week. Patient further reports difficulty with saliva management, reports choking on saliva intermittently, reports lower frequency of occurrences, denies sialorrhea / drooling. Patient reports prior issue with PO intake while on a cruise approximately 10 years prior (recurrent regurgitation), though it was suspected that her swallow issues were related to an allergic reaction to artificial sweeteners, with symptoms somewhat improving. Patient further reports current workup for multiple sclerosis, reports long history of fibromyalgia with intermittent facial / intraoral numbness, recurrent extremity numbness, recurrent headaches, and recurrent diplopia amongst other symptoms, non-directly correlated with intake concerns. 10/15/2017 MRI revealed normal unenhanced and enhanced MRI of the brain; no demonstrated demyelinating plaques. 06/25/[address] revealed no CTA demonstrated pulmonary embolism or arterial dissection; there is a small hiatal hernia. MEDICAL HISTORY: Fibromyalgia, osteoarthritis, type 1 plasminogen activator inhibitor deficiency , chronic migraine, hypothyroidism, generalized anxiety disorder, obesity (BMI 35.0-39.9 without comorbidity) STUDY FINDINGS: Patient participated in a Modified Barium Swallow (MBS) study on 10/24/2017. Dr. Neff was the radiologist present for this evaluation. This study was recorded in the lateral view and images were sent to PACs for storage. The following consistencies were presented to this patient for analysis of oropharyngeal swallow function: thin liquids, pudding, and a regular textured, Isabell Doone cookie. Results of the MBS are as follows: PENETRATION / ASPIRATION SCALE (MAYORGA): 1 = does not enter airway 2 = enters airway/above vocal folds/ejected 3 = enters airway/above vocal folds/not ejected 4 = enters airway/contacts vocal folds/ejected 5 = enters airway/contacts vocal folds/not ejected 6 = enters airway/below vocal folds/ejected 7 = enters airway/below vocal folds/not ejected despite effort 8 = enters airway/below vocal folds/no effort PENETRATION / ASPIRATION SCALE (SCORE): Thin liquid - 5 mL tsp.: 1 Thin liquids via cup (single sip): 2 Thin liquids via cup (single sip): 1 Thin liquids via cup (single sip): 1 Thin liquids via cup (sequential swallows): 2 Thin liquids via straw (single sip): 1 Thin liquids via straw (sequential swallows): 1 Pudding via spoon: 1 Regular textured cookie: 1 Thin liquids via straw (sequential swallows): 1 IMPRESSION: DIAGNOSIS: mild oropharyngeal dysphagia (R13.12) ORAL PHASE CHARACTERIZED BY: LABIAL SEAL: no labial escape TONGUE CONTROL DURING BOLUS MANIPULATION: cohesive bolus between tongue to palatal seal BOLUS PREPARATION / MASTICATION: timely and efficient chewing and mashing BOLUS TRANSPORT / LINGUAL MOTION: delayed initiation of tongue motion with brief repetitive / disorganized tongue motion most prominent with more viscous textures (2-3 second delay with thin liquids, 7 seconds with purees). ORAL RESIDUE: intermittent residue collection on oral structures (posterior lingual blade) PHARYNGEAL PHASE CHARACTERIZED BY: INITIATION OF PHARYNGEAL SWALLOW: bolus head at posterior laryngeal surface of epiglottis at first hyoid excursion SOFT PALATE ELEVATION: no bolus between soft palate and pharyngeal wall LARYNGEAL ELEVATION: partial superior movement of thyroid cartilage/partial approximation of arytenoids cartilage to epiglottic petiole ANTERIOR HYOID EXCURSION: intermittent partial anterior movement EPIGLOTTIC MOVEMENT: complete epiglottic inversion LARYNGEAL VESTIBULE CLOSURE AT HEIGHT OF SWALLOW: complete laryngeal vestibule closure with no air/contrast in laryngeal vestibule PHARYNGEAL STRIPPING WAVE: pharyngeal stripping wave present / complete PHARYNGOESOPHAGEAL SEGMENT OPENING: complete distension and complete duration with no obstruction of flow; non obstructing large cricopharyngeal bar located at C-5 level TONGUE BASE RETRACTION: trace column of contrast between tongue base and posterior pharyngeal wall PHARYNGEAL RESIDUE: trace residue within or on pharyngeal structures ESOPHAGEAL PHASE CHARACTERIZED BY: ESOPHAGEAL BOLUS CLEARANCE IN THE UPRIGHT POSITION: complete clearance; esophageal coating EFFECTS OF TREATMENT STRATEGIES ATTEMPTED: Reduced bolus size = effective DIET TEXTURE RECOMMENDATIONS: Will recommend a regular textured, thin liquid diet. COMPENSATORY STRATEGIES RECOMMENDED: Reduced bolus volume, seated upright at 90 degrees during PO intake INTERPRETATION OF RESULTS: Patient presents with mild oropharyngeal dysphagia (R13.12) primarily effecting the oral phase with unclear etiology of cause. Oral phase primarily marked by suboptimal lingual control with noted mild lingual festinations; and oral phase swallow onset delay / swallow apraxia (2-3 seconds in length with liquids, upwards of 7 seconds with purees) commonly identified in neurologically compromised individuals. Pharyngeal phase primarily marked by mild impairments in pharyngeal swallow onset timing and closure of the airway during deglutition resulting in occasional transient penetration with sufficient laryngeal vestibule pressure generated to expel penetrated material. Pharyngeal phase deficits ameliorated with bolus volume adjustments. Mild reduction in posterior tongue base volume. Prominent cricopharyngeal bar located at the C-6 level, no effect on pharyngoesophageal motility. Despite little impact on performance under fluoroscopy, would associate reported coughing during thin liquid intake / management of saliva likely to impairments in lingual control, as these deficits would place the Patient at higher risk of pre-prandial penetration and aspiration of thin liquids particularly if in a semi-reclined position. RECOMMENDATIONS: Patient would benefit from continued skilled speech-language intervention targeting continued diet texture management; training / implementation of recommended compensatory strategies; and Patient education regarding dysphagia and etiology of cause if workup reveals a dysphagia related etiology at the outpatient level. ADDITIONAL COMMENTS/RECOMMENDATIONS: Results and recommendations were discussed with the Patient immediately following MBS completion, with the Patient verbalizing understanding and agreement with all recommendations and education provided. IMAGE COUNT: [id number] G-CODES: SWALLOWING [id number] Current Status: CI SWALLOWING [id number] Goal Status: CH SWALLOWING [id number] Discharge Status: CI
== END ==
PROVIDERS: Family Provider Internal Medicine; PCP Internal Medicine; Visit Provider Nurse Practitioner Acute Care
DX: R13.11 Dysphagia, oral phase (principal)
CPT/HCPCS: 74230; 92611; G8996; G8997; G8998

== ENCOUNTER → 2017-11-14 15:23 | Outpatient (CLI) | payer MEDICARE, SELFPAY ==
[2017-11-14 17:40] LABS: Hemoglobin A1c 5.8 % (4.2-6.3)
[2017-11-14 17:46] LABS: Vitamin B12 481 pg/mL (211-911)
[2017-11-14 18:53] LABS: Phosphorus 3.4 mg/dL (2.5-4.9)
== END ==
PROVIDERS: Family Provider Internal Medicine; PCP Internal Medicine; Visit Provider Nurse Practitioner Acute Care
DX: R20.0 Anesthesia of skin (principal); R20.2 Paresthesia of skin
CPT/HCPCS: 36415; 82607; 82746; 83036; 83735; 84100

== ENCOUNTER 2017-11-17 10:00 | Outpatient (RCR) | payer MEDICARE, SELFPAY ==
--- NOTE | 2017-11-17 11:44 | HP.SP.AD ---
History - History Date of Eval: 12/02/16 Referring Doctor: MAHESH Lazo Reason for Referral: Dysphagia Medical Diagnosis (from RX): Dysphagia (R13.12) Date of Onset of Diagnosis: 10/24/2017 Previous speech therapy: No Other Relevant Medical History/Diagnoses/Surgery: Fibromyalgia, osteoarthritis, type 1 plasminogen activator inhibitor deficiency, chronic migraine, hypothyroidism, generalized anxiety disorder, obesity (BMI 35.0-39.9 without comorbidity) Smoking Status: Never smoker Hx Smoking: No Hx Tobacco Use: No Hx Smoking Exposure: No - Pain Is pain an issue with your current prescribed condition?: No Patient Allergies - Allergies Allergies morphine Allergy (Verified 06/25/17 14:30) Rash oxycodone HCl [From OxyContin] Allergy (Verified 06/25/17 14:30) Vomiting Penicillins [PCN] Allergy (Verified 06/25/17 14:30) Swelling ARTIFICIAL SWEETENER Allergy (Uncoded 06/25/17 14:30) Swelling Subjective Oral Motor - Comments Comments: Mild right sided facial and bilateral labial and lingual hypoesthesia that reportedly fluctuates in presence. Slight intermittent delay in lingual movements during cued lateralization with noted mild lingual and labial undulations, no obvious groping for placement through would not rule out very mild oral apraxia. Upper dentures present, adequate fit; missing right sided molar, prior restorative work completed, no obvious dental carries or signs of decay. Oral mucosa moist, pinkish appearance. No dysarthria, no apraxia of speech, no aphasia, appears cognitively intact throughout session. Objective Dysphagia - Administered by Administered by: Self - Thin Liquids Administred via: Cup, Straw Symptoms: Throat Clearing, Couging Laryngeal Elevation: WFL Oral Holding: Yes - mild, 2-3 seconds - Pureed Laryngeal Elevation: WFL Oral Holding: No Gagging: No - Regular Laryngeal Elevation: WFL Oral Holding: No Gagging: No - Results Swallowing Within Normal Limits: No Swallowing Diagnosis: Oropharyngeal Phase Dysphagia Severity: Mild Dysphagia Assessment - Impact Comments: Patient is a 56 year old female referred for an outpatient clinical swallow evaluation at [facility] due to reported coughing during ingestion of both solids and liquids (primarily liquids) with coughing generally occurring immediately prior to or directly after deglutition, with symptoms somewhat progressing in frequency, occurring approximately 1-2 times per week. Patient further reports difficulty with saliva management, reports choking on saliva intermittently, reports lower frequency of occurrences, denies sialorrhea / drooling. Patient reports prior issue with PO intake while on a cruise approximately 10 years prior (recurrent regurgitation), though it was suspected that her swallow issues were related to an allergic reaction to artificial sweeteners, with symptoms somewhat improving. Patient further reports current workup for multiple sclerosis, reports long history of fibromyalgia with intermittent facial / intraoral numbness, recurrent extremity numbness, recurrent headaches, and recurrent diplopia amongst other symptoms, non-directly correlated with intake concerns. 10/24/2017 MBS revealed with mild oropharyngeal dysphagia (R13.12) with transient penetration with thin liquids. - Recommendations Swallowing Treatment: Yes - Diet Texture Recommendations Solids Other: Regular Liquids: Thin - Safety Other: Chin tuck with use straw with anterior forward head posture, reduced bolus volume, seated upright at 90 degrees during PO intake (anterior forward head posture) Plan - Plan Plan: Patient presents with mild oropharyngeal dysphagia (R13.12) primarily effecting the oral phase with unclear etiology of cause. Oral phase primarily marked by suboptimal lingual control with noted mild lingual festinations; and oral phase swallow onset delay / swallow apraxia (2-3 seconds in length with liquids) commonly identified in neurologically compromised individuals. Pharyngeal phase primarily marked by mild impairments in pharyngeal swallow onset timing and closure of the airway during deglutition marked by consistent audible swallow without execution of the chin tuck posture resulting in occasional transient penetration with sufficient laryngeal vestibule pressure generated to expel penetrated material (verified under fluoroscopy). Pharyngeal phase deficits ameliorated with execution of the chin tuck posture in addition to bolus volume adjustments. Would associate reported coughing during thin liquid intake / management of saliva likely to impairments in lingual control, as these deficits would place the Patient at higher risk of pre-prandial penetration and aspiration of thin liquids particularly if in a semi-reclined position. Patient would benefit from continued skilled speech-language intervention targeting continued diet texture management; training / implementation of recommended compensatory strategies; and Patient education regarding dysphagia and etiology of cause if workup reveals a dysphagia related etiology at the outpatient level. - Frequency Frequency: Every Other Week Duration: 3 Months - Prognosis Prognosis: Excellent - Goal #1-5 Goal #1: Pt will tolerate the least restrictive means of nutrition to facilitate adequate hydration/nutrition with optimum safety and efficiency of swallowing function during P.O. intake without overt signs and symptoms of aspiration. Goal #2: Pt will demonstrate and utilize recommended compensatory swallowing techniques to facilitate improved airway protection and decreased risk for aspiration during PO intake, across 2 out of 3 sessions. Education - Patient Instruction Patient Education: Diagnosis, Treatment Plan, Goals, Safety Precautions Person Taught: Patient Teaching Method: Discussion, Demonstration, Teach back Response to teaching: Return demonstration, Verbalize understanding
== END 2017-11-17 10:30 | disposition home or self-care (01) ==
LOC: SP 10:00
PROVIDERS: Family Provider Internal Medicine; PCP Internal Medicine; Visit Provider Nurse Practitioner Acute Care
DX: R13.11 Dysphagia, oral phase (principal)
CPT/HCPCS: 92526; 92610

== ENCOUNTER → 2017-11-22 11:22 | Outpatient (CLI) | payer MEDICARE, SELFPAY ==
[2017-11-22 13:09] LABS: T4 Free Direct 1.52 ng/dL (0.76-1.46); Thyroid Stim Hormone (TSH) < 0.01 uIU/mL (0.358-3.74)
== END ==
PROVIDERS: Family Provider Internal Medicine; PCP Internal Medicine; Visit Provider Internal Medicine
DX: E03.9 Hypothyroidism, unspecified (principal)
CPT/HCPCS: 36415; 84439; 84443

== ENCOUNTER → 2018-02-21 09:49 | Outpatient (CLI) | payer MEDICARE, SELFPAY ==
[2018-02-21 12:13] LABS: T4 Free Direct 1.34 ng/dL (0.76-1.46); Thyroid Stim Hormone (TSH) < 0.01 uIU/mL (0.358-3.74)
== END ==
PROVIDERS: Family Provider Internal Medicine; PCP Internal Medicine; Referring Provider Internal Medicine; Visit Provider Internal Medicine
DX: E03.9 Hypothyroidism, unspecified (principal)
CPT/HCPCS: 36415; 84439; 84443

== ENCOUNTER → 2018-02-22 11:59 | Outpatient (CLI) | payer MEDICARE, SELFPAY ==
--- NOTE | 2018-02-22 14:04 | NEURO ---
NCS and/or EMG Patient Report Ordering Doctor: Barbara Villar DATE OF SERVICE: 02/22/18 Nicolette Brink is a 57-year-old female presents for electrodiagnostic testing of the lower limbs. She has chief complaint of leg weakness and numbness. She also reports continued lower extremity pain, worse in the right side. Electrodiagnostic findings: Peroneal motor nerve demonstrates normal distal latency bilaterally with reduced amplitude and normal conduction velocity. Normal tibial motor response bilaterally. Superficial peroneal and medial plantar responses are within normal limits. Prolonged right sural latency and absent left sural response. On needle EMG, all muscles tested in the lower limb showed no evidence of denervation with normal motor unit action potentials. Electrodiagnostic impression: This is an abnormal study. 1. 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 There is demonstration of axonal loss. No evidence of conduction block at the fibular head. 2. Patient demonstrated a prolonged right sural latency and an absent left sural response. She is however extremely edematous in the lower limbs and this can have an impact on obtaining appropriate sensory responses. Therefore an accurate conclusion regarding sural neuropathy cannot be made. 3. No electrodiagnostic evidence for lumbosacral radiculopathy. If there are any further questions please do not hesitate to contact me
== END ==
PROVIDERS: Family Provider Internal Medicine; PCP Internal Medicine; Referring Provider Nurse Practitioner Acute Care; Visit Provider Nurse Practitioner Acute Care
DX: R20.0 Anesthesia of skin (principal); R20.2 Paresthesia of skin; R29.898 Other symptoms and signs involving the musculoskeletal system
CPT/HCPCS: 95886; 95912

== ENCOUNTER → 2018-03-01 07:22 | Outpatient (CLI) | payer MEDICARE, SELFPAY ==
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
== END ==
PROVIDERS: Family Provider Internal Medicine; PCP Internal Medicine; Referring Provider Nurse Practitioner Acute Care; Visit Provider Nurse Practitioner Acute Care
DX: R20.0 Anesthesia of skin (principal); R20.2 Paresthesia of skin; R29.898 Other symptoms and signs involving the musculoskeletal system
CPT/HCPCS: 95886; 95913

== ENCOUNTER → 2018-04-04 09:19 | Outpatient (CLI) | payer MEDICARE, SELFPAY ==
[2018-02-21 08:59] VITALS: BMI 40.1
[2018-04-04 10:37] LABS: T4 Free Direct 1.36 ng/dL (0.76-1.46); Thyroid Stim Hormone (TSH) 0.01 uIU/mL (0.358-3.74)
--- OUTSIDE RECORDS SUMMARY | 2018-07-06 16:00 | XMS RPT_ITS ---
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 patient in pain?: No Allergies morphine Allergy (Verified 06/25/17 14:30) Rash oxycodone HCl [From OxyContin] Allergy (Verified 06/25/17 14:30) Vomiting Penicillins [PCN] Allergy (Verified 06/25/17 14:30) Swelling ARTIFICIAL SWEETENER Allergy (Uncoded 06/25/17 14:30) Swelling Medications Furosemide [Lasix] 20 mg PO DAILY PRN 06/25/17 [History Confirmed 11/22/17] Venlafaxine HCl [Venlafaxine HCl ER] 150 mg PO DAILY 06/25/17 [History Confirmed 11/22/17] levothyroxine 137 mcg tablet 137 mcg PO DAILY@0600 #30 tab 10/25/17 [Rx Confirmed 11/22/17] compression stocking,thigh high,long length,medium circumference See Dose Instructions .ROUTE .MEDSUPPLY #12 ea 11/03/17 [Rx] cyclobenzaprine 10 mg tablet 10 mg PO QHS PRN 11/22/17 [History Confirmed 11/22/17] warfarin 3 mg tablet 3 mg PO .Tue tab 11/22/17 [History Confirmed 11/22/17] warfarin 5 mg tablet 6 mg PO QDAY tab 11/22/17 [History Confirmed 11/22/17] PFSH Surgical History History of (Acute) History of appendectomy (Acute) History of hysterectomy (Acute) History of tonsillectomy (Acute) Family History Mother Diabetes Heart disease Breast cancer Father Heart disease COPD (chronic obstructive pulmonary disease) Grandmother Cancer Grandfather Cancer Sister Lupus Social History Smoking Status: Never smoker alcohol intake: never substance use type: does not use what type of physical activity do you participate in: walking HPI HPI Chief Complaint: 2 month FU Details: DARRIUS GUILLAUME, is a 56yo F who presents to the office today for follow up. She has no acute complaints at this time. She has not had repeat thyroid function checks however, denies any further episodes of tachycardia. She is also following up closely with Neurology due to her chronic history of double vision and migraine. work up so far has been negative. ROS Const Constitutional: No weight change, body ache, chills, sleep problems, fever(s), change in appetite, snoring, frequent falls, headache(s) or excessive sweating Eyes Eyes: No change in vision, eye pain, light sensitivity or blurry vision ENT ENT: No headache(s), abnormal hearing, ear pain, tinnitus, nasal congestion, sore throat or neck pain Resp Respiratory: No snoring, cough, shortness of breath or wheezing Cardio Cardiology: No excessive sweating, chest pain at rest, chest pain with exertion, shortness of breath, dyspnea on exertion, palpitations, orthopnea or lightheadedness Gastro GI: No abdominal pain, change in bowel habits, constipation, diarrhea, vomiting, nausea/dyspepsia or cramping Genitourinary-Female: No burning urination, painful urination, urinary incontinence, urinary frequency, abnormal vaginal bleeding, pelvic pain or other Musc Musculoskeletal: No neck pain, abnormal walking, joint pain, back pain, limited range of motion or tingling Skin Skin: No redness, dry skin, itching, lesions, wounds or rash Neuro Neurology: No frequent falls, headache(s), abnormal hearing, abnormal walking, tingling, abnormal speech, dizziness or memory loss Psych Psychiatric: No change in appetite, No memory loss, No anxiety, No depression, No Thoughts of harming yourself/Others Endo Endocrine: No excessive sweating, cold intolerance, increased thirst/drinking, heat intolerance, flushing or increased hunger Aller/Imm Allergy/Immunologic: No wheezing, itchy eyes, hives or seasonal allergy symptoms Edis/Lymp Hematologic/Lymphatic: No easy bleeding, easy bruising or enlarged lymph nodes Exam Const General: cooperative, no acute distress Orientation: alert, oriented x3, awake HENMT Head: atraumatic, normocephalic Ears: hearing grossly normal bilaterally Resp Effort AND Inspection: normal respiratory effort, able to speak in complete sentences Auscultation: Bilateral: Clear to Auscultation Cardio Rate: regular rate Rhythm: regular rhythm Heart Sounds: S1 normal, S2 normal GI Inspection: obesity Palpation: soft, no hepatosplenomegaly Neuro General: alert, oriented x3, awake, moves all extremities, CN's II-XI intact bilaterally Extrem General: no clubbing, cyanosis or edema Psych Appearance: grossly normal Mental Status: mental status grossly normal Affect: normal affect Assessment AND Plan 1. Hypothyroid E03.9 Plan Repeat thyroid function studies ordered. Continue current medication for now and will adjust based on numbers. Orders Orders: 2. Anxiety associated with depression F41.8 Plan Stable. Continue current medication.` 3. Migraine G43.909 Plan Stable. Continue follow up with neurology. 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 Take 6mg this pm and continue other days as previously instructed. Repeat INR in 1 week. This note was generated with Tengionation software. It may contain incorrect words, spelling, and punctuation that were not noted in checking the note before signing. 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, [address] T4 FREE DIRECT Collected: 11/22/2017 Status: F Source: [place] 11:29 AM [facility] REPOSITORY TYPE CODE TESTS RESULT OUT OF REFERENCE UNITS RANGE LAB L506.0400 0.76-1.46 ng/dL High T4 FREE 1.52 DIRECT Performed By: #### L501.9520, L506.0400 #### [facility] [address] [place], [address] ADULT EVALUATION - SP Observed: 11/17/2017 Status: F Source: [place] 11:46 AM [facility] REPOSITORY [facility] Speech [facility]ology [facility] [address] [place], [place] [address] Fax REHABILITATION SERVICES INITIAL EVALUATION MR#: [id number] Acct: [id number] Name: DARRIUS GUILLAUME I Rep #: [id number] : 1960 56 From: Wesley Pham M.A., CFY-MOTOR AND CHASSIS INSPECTOR Referring Dr.: VLADIMIR Villar Status: REG R Insurance: [employer] SELF PAY INSURANCE History - History Date of Eval: 12/02/16 Referring Doctor: MAHESH Lazo Reason for Referral: Dysphagia Medical Diagnosis (from RX): Dysphagia (R13.12) Date of Onset of Diagnosis: 10/24/2017 Previous speech therapy: No Other Relevant Medical History/Diagnoses/Surgery: Fibromyalgia, osteoarthritis, type 1 plasminogen activator inhibitor deficiency, chronic migraine, hypothyroidism, generalized anxiety disorder, obesity (BMI 35.0-39.9 without comorbidity) Smoking Status: Never smoker Hx Smoking: No Hx Tobacco Use: No Hx Smoking Exposure: No - Pain Is pain an issue with your current prescribed condition?: No Patient Allergies - Allergies Allergies morphine Allergy (Verified 06/25/17 14:30) Rash oxycodone HCl [From OxyContin] Allergy (Verified 06/25/17 14:30) Vomiting Penicillins [PCN] Allergy (Verified 06/25/17 14:30) Swelling ARTIFICIAL SWEETENER Allergy (Uncoded 06/25/17 14:30) Swelling Subjective Oral Motor - Comments Comments: Mild right sided facial and bilateral labial and lingual hypoesthesia that reportedly fluctuates in presence. Slight intermittent delay in lingual movements during cued lateralization with noted mild lingual and labial undulations, no obvious groping for placement through would not rule out very mild oral apraxia. Upper dentures present, adequate fit; missing right sided molar, prior restorative work completed, no obvious dental carries or signs of decay. Oral mucosa moist, pinkish appearance. No dysarthria, no apraxia of speech, no aphasia, appears cognitively intact throughout session. Objective Dysphagia - Administered by Administered by: Self - Thin Liquids Administred via: Cup, Straw Symptoms: Throat Clearing, Couging Laryngeal Elevation: WFL Oral Holding: Yes - mild, 2-3 seconds - Pureed Laryngeal Elevation: WFL Oral Holding: No Gagging: No - Regular Laryngeal Elevation: WFL Oral Holding: No Gagging: No - Results Swallowing Within Normal Limits: No Swallowing Diagnosis: Oropharyngeal Phase Dysphagia Severity: Mild Dysphagia Assessment - Impact Comments: Patient is a 56 year old female referred for an outpatient clinical swallow evaluation at [facility] due to reported coughing during ingestion of both solids and liquids (primarily liquids) with coughing generally occurring immediately prior to or directly after deglutition, with symptoms somewhat progressing in frequency, occurring approximately 1-2 times per week. Patient further reports difficulty with saliva management, reports choking on saliva intermittently, reports lower frequency of occurrences, denies sialorrhea / drooling. Patient reports prior issue with PO intake while on a cruise approximately 10 years prior (recurrent regurgitation), though it was suspected that her swallow issues were related to an allergic reaction to artificial sweeteners, with symptoms somewhat improving. Patient further reports current workup for multiple sclerosis, reports long history of fibromyalgia with intermittent facial / intraoral numbness, recurrent extremity numbness, recurrent headaches, and recurrent diplopia amongst other symptoms, non-directly correlated with intake concerns. 10/24/2017 MBS revealed with mild oropharyngeal dysphagia (R13.12) with transient penetration with thin liquids. - Recommendations Swallowing Treatment: Yes - Diet Texture Recommendations Solids Other: Regular Liquids: Thin - Safety Other: Chin tuck with use straw with anterior forward head posture, reduced bolus volume, seated upright at 90 degrees during PO intake (anterior forward head posture) Plan - Plan Plan: Patient presents with mild oropharyngeal dysphagia (R13.12) primarily effecting the oral phase with unclear etiology of cause. Oral phase primarily marked by suboptimal lingual control with noted mild lingual festinations; and oral phase swallow onset delay / swallow apraxia (2-3 seconds in length with liquids) commonly identified in neurologically compromised individuals. Pharyngeal phase primarily marked by mild impairments in pharyngeal swallow onset timing and closure of the airway during deglutition marked by consistent audible swallow without execution of the chin tuck posture resulting in occasional transient penetration with sufficient laryngeal vestibule pressure generated to expel penetrated material (verified under fluoroscopy). Pharyngeal phase deficits ameliorated with execution of the chin tuck posture in addition to bolus volume adjustments. Would associate reported coughing during thin liquid intake / management of saliva likely to impairments in lingual control, as these deficits would place the Patient at higher risk of pre-prandial penetration and aspiration of thin liquids particularly if in a semi-reclined position. Patient would benefit from continued skilled speech-language intervention targeting continued diet texture management; training / implementation of recommended compensatory strategies; and Patient education regarding dysphagia and etiology of cause if workup reveals a dysphagia related etiology at the outpatient level. - Frequency Frequency: Every Other Week Duration: 3 Months - Prognosis Prognosis: Excellent - Goal #1-5 Goal #1: Pt will tolerate the least restrictive means of nutrition to facilitate adequate hydration/nutrition with optimum safety and efficiency of swallowing function during P.O. intake without overt signs and symptoms of aspiration. Goal #2: Pt will demonstrate and utilize recommended compensatory swallowing techniques to facilitate improved airway protection and decreased risk for aspiration during PO intake, across 2 out of 3 sessions. Education - Patient Instruction Patient Education: Diagnosis, Treatment Plan, Goals, Safety Precautions Person Taught: Patient Teaching Method: Discussion, Demonstration, Teach back Response to teaching: Return demonstration, Verbalize understanding <Electronically signed by Wesley Pham M.A., REINALDOY-MOTOR AND CHASSIS INSPECTOR> 11/17/17 1146 CC: VLADIMIR Villar; Ziyad Sexton MD [facility] Signed For Medicare only, by signing this I certify the plan of care. Physicians Signature Date HEMOGLOBIN A1C Collected: 11/14/2017 Status: F Source: [place] 3:36 PM [facility] REPOSITORY TYPE CODE TESTS RESULT OUT OF RANGE REFERENCE UNITS LAB L501.9985 4.2-6.3 % Normal HGB A1C 5.8 Performed By: #### L501.9985 #### [facility] [address] [place], [address] VITAMIN B12 Collected: 11/14/2017 Status: F Source: [place] 3:36 PM [facility] REPOSITORY TYPE CODE TESTS RESULT OUT OF RANGE REFERENCE UNITS LAB L503.0105 211-911 pg/mL Normal Vitamin B12 481 Performed By: #### L503.0105 #### [facility] [address] [place], [address] PHOSPHORUS Collected: 11/14/2017 Status: F Source: [place] 3:36 PM [facility] REPOSITORY Order Comment: Comments: [id number] PLASMA FROZEN NO LIGHT Is Patient Taking Vitamins or Folic Acid Supplements? N TYPE CODE TESTS RESULT OUT OF RANGE REFERENCE UNITS LAB L501.2300 2.5-4.9 mg/dL Normal PHOS 3.4 Performed By: #### L501.2300, L501.5200, L506.0250 #### [facility] [address] [place], [address] MAGNESIUM Collected: 11/14/2017 Status: F Source: [place] 3:36 PM [facility] REPOSITORY Order Comment: Comments: [id number] PLASMA FROZEN NO LIGHT Is Patient Taking Vitamins or Folic Acid Supplements? N TYPE CODE TESTS RESULT OUT OF RANGE REFERENCE UNITS LAB L501.5200 1.6-2.6 mg/dL Normal MG 2.0 Performed By: #### L501.2300, L501.5200, L506.0250 #### [facility] [address] [place], [address] FOLATES, (FOLIC ACID) Collected: 11/14/2017 Status: F Source: [place] 3:36 PM [facility] REPOSITORY Order Comment: Comments: [id number] B6 PLASMA FROZEN NO LIGHT Is Patient Taking Vitamins or Folic Acid Supplements? N TYPE CODE TESTS RESULT OUT OF RANGE REFERENCE UNITS LAB L506.0250 3.1-55.4 ng/mL Normal FOLATES 20.10 Performed By: #### L501.2300, L501.5200, L506.0250 #### [facility] [address] [place], [address] MISCELLANEOUS LAB Collected: 11/14/2017 Status: F Source: [place] PROCEDURE 3:36 PM [facility] REPOSITORY Order Comment: Comments: [id number] PLASMA FROZEN NO LIGHT Test(s) Ordered: [id number] PLASMA FROZEN NO LIGHT TYPE CODE TESTS RESULT OUT OF RANGE REFERENCE UNITS LAB L801.1541 Normal [facility] LAB TEST Result Comment: TEST RESULT LIMITS Vitamin B6, Plasma Vitamin B6 4.8 ug/L 2.0 - 32.8 Disclaimer: This test was developed and its performance characteristics determined by [employer] It has not been cleared or approved by the Food and Drug Administration. TESTING PERFORMED AT [facility]. ORIGINAL REPORT ON FILE IN LAB CONTAINS ADDITIONAL TEST SITE INFORMATION. Performed By: #### L801.1541 #### [facility] [address] [place], [address] MODIFIED BARIUM Observed: 10/24/2017 Status: F Source: [place] SWALLOW STUDY 3:20 PM [facility] REPOSITORY [facility] Speech Pathology [address] [place] [address] Modified Barium Swallow Study MR#: [id number] Acct: [id number] Name: DARRIUS GUILLAUME Santana Rep #: [id number] : 1960 56 From: Wesley Pham M.A. CFY-MOTOR AND CHASSIS INSPECTOR PRIMARY / SECONDARY DIAGNOSIS: dysphagia (R13.10) REFERRING PHYSICIAN: TAYLOR Lazo CURRENT DIET: regular textures, thin liquids DENTITION: WFL MENTAL STATUS: WNL RESPIRATORY STATUS: O2 via room air PREVIOUS MODIFIED BARIUM SWALLOW STUDY: none REASON FOR REFERRAL: Patient is a 56 year old female referred for a modified barium swallow (MBS) study to objectively assess the Patients oropharyngeal swallow function under fluoroscopy secondary to reported coughing during ingestion of both solids and liquids (primarily liquids) with coughing generally occurring immediately prior to or directly after deglutition, with symptoms somewhat progressing in frequency, occurring approximately 1-2 times per week. Patient further reports difficulty with saliva management, reports choking on saliva intermittently, reports lower frequency of occurrences, denies sialorrhea / drooling. Patient reports prior issue with PO intake while on a cruise approximately 10 years prior (recurrent regurgitation), though it was suspected that her swallow issues were related to an allergic reaction to artificial sweeteners, with symptoms somewhat improving. Patient further reports current workup for multiple sclerosis, reports long history of fibromyalgia with intermittent facial / intraoral numbness, recurrent extremity numbness, recurrent headaches, and recurrent diplopia amongst other symptoms, non-directly correlated with intake concerns. 10/15/2017 MRI revealed normal unenhanced and enhanced MRI of the brain; no demonstrated demyelinating plaques. 06/25/[address] revealed no CTA demonstrated pulmonary embolism or arterial dissection; there is a small hiatal hernia. MEDICAL HISTORY: Fibromyalgia, osteoarthritis, type 1 plasminogen activator inhibitor deficiency, chronic migraine, hypothyroidism, generalized anxiety disorder, obesity (BMI 35.0-39.9 without comorbidity) STUDY FINDINGS: Patient participated in a Modified Barium Swallow (MBS) study on 10/24/2017. Dr. Neff was the radiologist present for this evaluation. This study was recorded in the lateral view and images were sent to PACs for storage. The following consistencies were presented to this patient for analysis of oropharyngeal swallow function: thin liquids, pudding, and a regular textured, Isabell Doone cookie. Results of the MBS are as follows: PENETRATION / ASPIRATION SCALE (MAYORGA): 1 = does not enter airway 2 = enters airway/above vocal folds/ejected 3 = enters airway/above vocal folds/not ejected 4 = enters airway/contacts vocal folds/ejected 5 = enters airway/contacts vocal folds/not ejected 6 = enters airway/below vocal folds/ejected 7 = enters airway/below vocal folds/not ejected despite effort 8 = enters airway/below vocal folds/no effort PENETRATION / ASPIRATION SCALE (SCORE): Thin liquid - 5 mL tsp.: 1 Thin liquids via cup (single sip): 2 Thin liquids via cup (single sip): 1 Thin liquids via cup (single sip): 1 Thin liquids via cup (sequential swallows): 2 Thin liquids via straw (single sip): 1 Thin liquids via straw (sequential swallows): 1 Pudding via spoon: 1 Regular textured cookie: 1 Thin liquids via straw (sequential swallows): 1 IMPRESSION: DIAGNOSIS: mild oropharyngeal dysphagia (R13.12) ORAL PHASE CHARACTERIZED BY: LABIAL SEAL: no labial escape TONGUE CONTROL DURING BOLUS MANIPULATION: cohesive bolus between tongue to palatal seal BOLUS PREPARATION / MASTICATION: timely and efficient chewing and mashing BOLUS TRANSPORT / LINGUAL MOTION: delayed initiation of tongue motion with brief repetitive / disorganized tongue motion most prominent with more viscous textures (2-3 second delay with thin liquids, 7 seconds with purees). ORAL RESIDUE: intermittent residue collection on oral structures (posterior lingual blade) PHARYNGEAL PHASE CHARACTERIZED BY: INITIATION OF PHARYNGEAL SWALLOW: bolus head at posterior laryngeal surface of epiglottis at first hyoid excursion SOFT PALATE ELEVATION: no bolus between soft palate and pharyngeal wall LARYNGEAL ELEVATION: partial superior movement of thyroid cartilage/partial approximation of arytenoids cartilage to epiglottic petiole ANTERIOR HYOID EXCURSION: intermittent partial anterior movement EPIGLOTTIC MOVEMENT: complete epiglottic inversion LARYNGEAL VESTIBULE CLOSURE AT HEIGHT OF SWALLOW: complete laryngeal vestibule closure with no air/contrast in laryngeal vestibule PHARYNGEAL STRIPPING WAVE: pharyngeal stripping wave present / complete PHARYNGOESOPHAGEAL SEGMENT OPENING: complete distension and complete duration with no obstruction of flow; non obstructing large cricopharyngeal bar located at C-5 level TONGUE BASE RETRACTION: trace column of contrast between tongue base and posterior pharyngeal wall PHARYNGEAL RESIDUE: trace residue within or on pharyngeal structures ESOPHAGEAL PHASE CHARACTERIZED BY: ESOPHAGEAL BOLUS CLEARANCE IN THE UPRIGHT POSITION: complete clearance; esophageal coating EFFECTS OF TREATMENT STRATEGIES ATTEMPTED: Reduced bolus size = effective DIET TEXTURE RECOMMENDATIONS: Will recommend a regular textured, thin liquid diet. COMPENSATORY STRATEGIES RECOMMENDED: Reduced bolus volume, seated upright at 90 degrees during PO intake INTERPRETATION OF RESULTS: Patient presents with mild oropharyngeal dysphagia (R13.12) primarily effecting the oral phase with unclear etiology of cause. Oral phase primarily marked by suboptimal lingual control with noted mild lingual festinations; and oral phase swallow onset delay / swallow apraxia (2-3 seconds in length with liquids, upwards of 7 seconds with purees) commonly identified in neurologically compromised individuals. Pharyngeal phase primarily marked by mild impairments in pharyngeal swallow onset timing and closure of the airway during deglutition resulting in occasional transient penetration with sufficient laryngeal vestibule pressure generated to expel penetrated material. Pharyngeal phase deficits ameliorated with bolus volume adjustments. Mild reduction in posterior tongue base volume. Prominent cricopharyngeal bar located at the C-6 level, no effect on pharyngoesophageal motility. Despite little impact on performance under fluoroscopy, would associate reported coughing during thin liquid intake / management of saliva likely to impairments in lingual control, as these deficits would place the Patient at higher risk of pre-prandial penetration and aspiration of thin liquids particularly if in a semi-reclined position. RECOMMENDATIONS: Patient would benefit from continued skilled speech-language intervention targeting continued diet texture management; training / implementation of recommended compensatory strategies; and Patient education regarding dysphagia and etiology of cause if workup reveals a dysphagia related etiology at the outpatient level. ADDITIONAL COMMENTS/RECOMMENDATIONS: Results and recommendations were discussed with the Patient immediately following MBS completion, with the Patient verbalizing understanding and agreement with all recommendations and education provided. IMAGE COUNT: [id number] G-CODES: SWALLOWING G8996 Current Status: CI SWALLOWING G8997 Goal Status: SWALLOWING G8998 Discharge Status: CI 10/24/17 1520 <Electronically signed by Wesley Pham M.A., CFY-MOTOR AND CHASSIS INSPECTOR> Date Wesley Pham M.A. CFY-MOTOR AND CHASSIS INSPECTOR Co-Signature Required for all Medicare patients Date/Time Co-Signature CC: SWALLOWING FUNCTION Observed: 10/24/2017 Status: F Source: [place] W/VIDEO 1:17 PM [facility] Imaging Services [address] [place], [place] [address] [address] Swallowing Function w/Video MR#: [id number] Acct: [id number] Name: DARRIUS GUILLAUME I Rep #: [id number] : 1960 F 56 From: Anant Neff MD PCP: Ziyad Sexton MD Status: REG CLI Study: Swallowing Function w/Video Date of Exam: 10/24/17 Exam# [id number] Ordering Dr: Barbara Villar SEALING MACHINE OPERATOR-Rahul STUDY: SWALLOWING STUDY REASON FOR EXAM: Female, 56 years old. Dysphagia. TECHNIQUE: The examination was performed with Speech Pathology in attendance. Under fluoroscopic observation, the patient ingested thin barium, thick barium, barium pudding, and barium coated cracker. FLUOROSCOPY TIME: 2:19 minutes/seconds. 1899 fluoroscopic images were obtained. RADIOLOGIST INVOLVEMENT: Radiologist was present and providing direct supervision. COMPARISON: None. FINDINGS: The following was observed during swallowing of the various mixtures of barium: Thin Barium: Intermittent transient penetration with ingestion of thin liquids. Barium Pudding: There was no evidence of aspiration or laryngeal penetration. Barium Coated Cracker: There was no evidence of aspiration or laryngeal penetration. There is hypertrophy of the cricopharyngeus muscle. RAD/Swallowing Function w/Video IMPRESSION: Transient intermittent penetration with ingestion of thin liquids. Hypertrophy of the cricopharyngeus muscle. The swallow study findings were discussed with the patient by the speech pathologist at the conclusion of the examination. Please see speech pathology report for more information and recommendations. Electronically Signed: Anant Neff MD at 14:43 EDT Tel [phone], Service support , CC: VLADIMIR Villar; Ziyad Sexton MD Cae Engineer: Signed BRAIN W/WO CONTRAST Observed: 10/14/2017 Status: F Source: [place] 11:09 AM [facility] Imaging Services [address] [place] [address] Brain W/WO Contrast MR#: [id number] Acct: [id number] Name: DARRIUS GUILLAUME I Rep #: [id number] : 1960 F 56 From: Bert Kim DO PCP: Ziyad Sexton MD Status: REG CLI Study: Brain W/WO Contrast Date of Exam: 10/14/17 Exam# [id number] Ordering Dr: Barbara Villar SEALING MACHINE OPERATOR-Rahul STUDY: MRI BRAIN WITH AND WITHOUT CONTRAST REASON FOR EXAM: Female, 56 years old. The patient presents with a history of numbness and tingling with syncope and weakness. Assess for possible multiple sclerosis. TECHNIQUE: Standardized multiplanar fat and water weighted pulse sequences were obtained. 11 ml of Gadavist contrast material was administered intravenously for the contrast portion of the examination. COMPARISON: None. FINDINGS: Normal size of the ventricles and extra-axial spaces for the patient's age. Normal white matter tracts of the supratentorial brain. There are no demyelinating plagues of the supratentorial brain, brainstem or cerebellum. There are no findings suspicious for multiple sclerosis (MS). There is no evidence for recent intracranial ischemia or other cause of cytotoxic edema on diffusion weighted imaging (DWI). Normal bilateral basal ganglia. Normal thalami. There is no extra-axial fluid accumulation. Normal flow voids within the major intracranial circulation suggesting patency by spin echo criteria. Normal venous enhancement. There is no enhancing intra-axial or extra-axial abnormality. Normal sella turcica, pituitary gland, infundibular stalk, optic chiasm and hypothalamus. Normal tectal plate and pineal gland. Normal midbrain, amanda and medulla. Normal cerebellum. Normal basal cisterns. Normal bilateral temporal bones. Normal bilateral internal auditory canals. No demonstrated orbital abnormality, within the constraints of a routine brain study. Normal visualized paranasal sinuses. Normal calvarium and skull base. Normal visualized soft tissue structures. Normal visualized upper cervical spine. MRI/Brain W/WO Contrast IMPRESSION: 1. Normal unenhanced and enhanced MRI of the brain. 2. No demonstrated demyelinating plaques. Electronically Signed: Bert Kim DO at 11:26 EDT Tel , Service support , CC: VLADIMIR Villar; Ziyad Sexton MD Cae Engineer: Signed DOWNTIME REPORT Observed: 10/06/2017 Status: F Source: [place] 2:07 PM [facility] Medical Records Department [address] [place] [address] Downtime Report MR#: [id number] Acct: [id number] Name: DARRIUS GUILLAUME I Rep #: [id number] : 1960 56 From: Neftaly Etienne PCP: Ziyad Sexton MD Status: REG CLI This patient was seen during an EMR downtime September 19, 2017 - September 26, 2017. This patient may have a combination of paper and electronic documentation or all paper documentation. All documentation is viewable within the e-chart portion of [employer] for each patient visit. CBC-COMPLETE BLOOD CNT Collected: 10/05/2017 Status: F Source: [place] NO DIFF 3:33 PM [facility] TYPE CODE TESTS RESULT OUT OF RANGE REFERENCE UNITS LAB L100.1000 4.4-11.0 K/mm3 Normal WBC 6.2 LAB L100.1200 4.2-5.4 M/mm3 Normal RBC 4.38 LAB L100.1300 12.0-15.0 g/dl Normal HGB 12.7 LAB L100.1400 37-47 % Normal HCT 39.2 LAB L100.1500 81-99 fL Normal MCV 89.5 LAB L100.1600 27.0-32.0 pg Normal MCH 29.0 LAB L100.1700 32-36 g/gl Normal MCHC 32.4 LAB L100.1810 11.6-14.6 % Normal RDW CV 12.5 LAB L100.1820 35.1-43.9 fl Normal RDW SD 40.4 LAB L100.1900 150-450 K/mm3 Normal PLT 217 LAB L100.2000 6.2-12.0 fl Normal MPV 8.7 Performed By: #### L100.0500, L100.9950, L101.9900 #### [facility] [address] [place], [address] RETIC PANEL Collected: 10/05/2017 Status: F Source: [place] 3:33 PM [facility] TYPE CODE TESTS RESULT OUT OF RANGE REFERENCE UNITS LAB L101.0000 0.5-1.5 % Normal RETIC 1.06 LAB L101.0060 3.00-15.90 % Low IM RET FRACTION 2.50 LAB L101.0090 30-35 pg Normal RET-HE 30.6 LAB L101.0110 1.0-7.9 % Normal IPF 1.1 Result Comment: Low PLT + Low IPF suggest a bone marrow production disorder Low PLT + high IPF suggests peripheral destruction (e.g.ITP, TTP, HIT, DIC, autoimmune) or bone marrow recovery Trending of serial IPF measurements is recommended when evaluating for bone marrow respones Value above normal range indicates an increase in RBC cellular response from bone marrow. Performed By: #### L100.0500, L100.9950, L101.9900 #### [facility] [address] [place], [address] ERYTHROCYTE SED RATE Collected: 10/05/2017 Status: F Source: [place] 3:33 PM [facility] TYPE CODE TESTS RESULT OUT OF RANGE REFERENCE UNITS LAB L102.0000 0-30 mm/hr Normal SED RATE 18 Performed By: #### L100.0500, L100.9950, L101.9900 #### [facility] [address], [address] VITAMIN B12 Collected: 10/05/2017 Status: F Source: [place] 3:33 PM [facility] TYPE CODE TESTS RESULT OUT OF RANGE REFERENCE UNITS LAB L503.0105 211-911 pg/mL Normal Vitamin B12 560 Performed By: #### L503.0105 #### [facility] [address] [place], [address] COMPREHENSIVE METABOLIC Collected: 10/05/2017 Status: F Source: [place] 3:33 PM [facility] Order Comment: Is Patient Taking Vitamins or Folic Acid Supplements? N TYPE CODE TESTS RESULT OUT OF RANGE REFERENCE UNITS LAB L501.0100 74-106 mg/dL High GLU 114 Result Comment: Fasting Glucose result from 100 to 125 mg/dL suggests IMPAIRED HOMEOSTASIS per A.D.A. criteria. Please note revised GLUCOSE reference range effective 2017. LAB L501.1000 7-18 mg/dL Normal BUN 11 LAB L501.1100 0.55-1.02 mg/dL Normal CREAT,SERUM 0.76 Result Comment: The validity of the calculated GFR AND GFRAA in patients over 70 years has not been determined. Clinical correlation is essential. LAB L501.1110 >60 mL/min Normal EST GFR 83 Result Comment: Non- GFR Calc LAB L501.1115 >60 mL/min Normal EST GFR - AA 101 Result Comment: GFR Calc LAB L501.1300 10-20 RATIO Normal BUN/CRE 14.5 LAB L501.1500 6.4-8.2 g/dL T Normal PROT 7.7 LAB L501.1800 3.2-5.0 g/dL Normal ALB 3.6 LAB L501.1950 2.2-4.2 g/dL Normal GLOB 4.1 LAB L501.2000 0.9-2.4 RATIO Normal A/G 0.9 LAB L501.2200 8.5-10.1 mg/dL CA Normal 8.9 LAB L501.4100 15-37 U/L Normal AST 28 LAB L501.4305 45-117 U/L Normal ALK P 112 LAB L501.4405 13-56 U/L Normal ALT 39 LAB L501.4600 0.20-1.00 mg/dL T Normal BILI 0.50 LAB L501.5300 136-145 mmol/L NA Normal 142 LAB L501.5600 3.5-5.1 mmol/L K Normal 4.2 LAB L501.5900 98-107 mmol/L CL Normal 105 LAB L501.6100 21.0-32.0 mmol/L Normal CO2 31.0 LAB L501.6200 5-15 Normal GAP 6 Performed By: #### L500.4050, L501.2300, L501.5200, L505.7010, L506.0250 #### [facility] [address] [place], [address] PHOSPHORUS Collected: 10/05/2017 Status: F Source: [place] 3:33 PM [facility] Order Comment: Is Patient Taking Vitamins or Folic Acid Supplements? N TYPE CODE TESTS RESULT OUT OF RANGE REFERENCE UNITS LAB L501.2300 2.5-4.9 mg/dL Low PHOS 2.4 Performed By: #### L500.4050, L501.2300, L501.5200, L505.7010, L506.0250 #### [facility] [address] [place], [address] MAGNESIUM Collected: 10/05/2017 Status: F Source: [place] 3:33 PM [facility] Order Comment: Is Patient Taking Vitamins or Folic Acid Supplements? N TYPE CODE TESTS RESULT OUT OF RANGE REFERENCE UNITS LAB L501.5200 1.6-2.6 mg/dL Normal MG 2.0 Performed By: #### L500.4050, L501.2300, L501.5200, L505.7010, L506.0250 #### [facility] [address] [place], [address] RHEUMATOID FACTOR Collected: 10/05/2017 Status: F Source: [place] 3:33 PM [facility] Order Comment: Is Patient Taking Vitamins or Folic Acid Supplements? N TYPE CODE TESTS RESULT OUT OF RANGE REFERENCE UNITS LAB L505.7010 <15 IU/mL Normal RHEUMATOID FAC < 10.0 Performed By: #### L500.4050, L501.2300, L501.5200, L505.7010, L506.0250 #### [facility] [address] [place], [address] FOLATES, (FOLIC ACID) Collected: 10/05/2017 Status: F Source: [place] 3:33 PM [facility] Order Comment: Is Patient Taking Vitamins or Folic Acid Supplements? N TYPE CODE TESTS RESULT OUT OF RANGE REFERENCE UNITS LAB L506.0250 3.1-55.4 ng/mL Normal FOLATES 18.30 Performed By: #### L500.4050, L501.2300, L501.5200, L505.7010, L506.0250 #### [facility] [address] [place], [place], [address] RAPID PLASMIN REAGIN Collected: 10/05/2017 Status: F Source: [place] (RPR) 3:33 PM [facility] TYPE CODE TESTS RESULT OUT OF REFERENCE UNITS RANGE LAB L700.5000 NONREACTIVE NONREACTIVE Normal RPR Performed By: #### L700.5000 #### [facility] [address] [place], [place], [address] HEAVY METALS, BLOOD Collected: 10/05/2017 Status: F Source: [place] 3:33 PM [facility] TYPE CODE TESTS RESULT OUT OF RANGE REFERENCE UNITS LAB L3100.6460 Normal LEAD, BLOOD Result Comment: None Detected Environmental Exposure: WHO Recommendation <20 Occupational Exposure: OSHA Lead Std 40 ANDREI 30 Detection Limit = 1 LAB L3100.6475 2-23 ug/L Normal ARSENIC 7245 7 Result Comment: Detection Limit = 1 LAB L3300.4900 Normal MERCURY 28817 Result Comment: None Detected Environmental Exposure: <15.0 Occupational Exposure: ANDREI - Inorganic Mercury: 15.0 Detection Limit = 1.0 Performed at: [address] [id number] Retail Banking Manager: Raman Whitten MD, Phone: [phone] Performed By: #### L3100.6425 #### [facility] (refer to [facility] for specific site) refer to report for address and phone number THYROID STIM HORMONE Collected: 09/23/2017 Status: F Source: [place] (TSH) 10:03 AM [facility] TYPE CODE TESTS RESULT OUT OF RANGE REFERENCE UNITS LAB L501.9520 0.358-3.74 uIU/mL Low TSH < 0.01 Performed By: #### L501.9520, L506.0400 #### [facility] [address] [place], [address] T4 FREE DIRECT Collected: 09/23/2017 Status: F Source: [place] 10:03 AM [facility] TYPE CODE TESTS RESULT OUT OF REFERENCE UNITS RANGE LAB L506.0400 0.76-1.46 ng/dL High T4 FREE 1.54 DIRECT Performed By: #### L501.9520, L506.0400 #### [facility] [address] [place], [address] PROGRESS Observed: 09/05/2017 Status: COMPLETED Source: [place] 9:08 AM [facility] RE[facility] HNO ID: [id number] Author: Janeth Pineda ([facility]) [place] Service: (none) Author Type: Nurse Practitioner Type: Progress Notes Filed: 09/05/2017 9:37 AM Note Text: Subjective HPI HPI Darrius Guillaume is a 56 year old female who presents today for CC of sinus drainage, congestion with low grade fever which has improved slightly since starting flonase but now with coughing and feeling a bit winded with activity for the last few days. She has tried flonase, benadryl ACTIVE PROBLEM LIST Embolism and Thrombosis of Unspecified Site Non Morbid Obesity Due to Excess Calories Myalgia and Myositis, Unspecified HYPERCOAGULABILITY STATE PRIMARY VENOUS THROMBOSIS DEEP, LOWER EXTREM Migraine With Aura Hypothyroidism Unspecified Asthma(493.90) Mixed Hyperlipidemia Edema Chalazion of Right Lower Eyelid Obstructive Sleep Apnea Syndrome Depression Fibromyalgia BP 120/82 Pulse 88 Temp 36.4 ?C (97.6 ?F) (Tympanic) Resp 18 Wt 100.2 kg (221 lb) SpO2 97% BMI 37.93 kg/m? ALLERGIES Allergen Reactions - Artificial Sweetene* The patient's throat goes into a spasm - Morphine hives, reddness at IV site - Oxycotin [Oxycodone] nausea, vommitting - Penicillins Rash, Swelling - Pneumovax 23 [Pneum* Other: See Comments Severe local reaction Current Outpatient Prescriptions: warfarin (COUMADIN) 3 mg tablet 3 mg Tues and 6 mg all other days Disp: Rfl: 0 levothyroxine (SYNTHROID) 137 mcg tablet Take 1 tablet by mouth once daily. Disp: 30 tablet Rfl: 2 warfarin (COUMADIN) 3 mg tablet Take 2 tablets by mouth daily as directed. Disp: 60 tablet Rfl: 11 warfarin (COUMADIN) 5 mg tablet 3 mg Mon and Fri, 6 mg all other days or as directed Disp: 40 tablet Rfl: 2 venlafaxine ER (EFFEXOR XR) 150 mg 24 hr capsule Take 1 capsule by mouth once daily. Disp: 30 capsule Rfl: 5 cyclobenzaprine (FLEXERIL) 10 mg tablet Take 1 tablet by mouth daily at bedtime. Disp: 30 tablet Rfl: 5 furosemide (LASIX) 20 mg tablet Take 1 tablet by mouth once daily as needed. Disp: 30 tablet Rfl: 12 COMPOUNDED PRESCRIPTION INR home monitoring device. Dx: Hx DVT Disp: 1 Device Rfl: 0 buPROPion XL (WELLBUTRIN XL) 150 mg 24 hr tablet Take 1 tablet by mouth once daily. (Patient not taking: Reported on 09/05/2017 ) Disp: 30 tablet Rfl: 5 SUMAtriptan (IMITREX) 50 mg tablet Take 1 tablet by mouth as needed for Migraine Headache (see administration instructions). (Patient not taking: Reported on 09/05/2017 ) Disp: 6 tablet Rfl: 3 No current facility-administered medications for this visit. Review of Systems Constitutional: Positive for fever (low grade). Negative for chills, diaphoresis and malaise/fatigue. HENT: Positive for congestion. Negative for ear pain and sore throat. Respiratory: Positive for cough and shortness of breath (with exertion). Negative for wheezing. Gastrointestinal: Negative for abdominal pain, diarrhea, nausea and vomiting. Musculoskeletal: Negative for joint pain and myalgias. Skin: Negative for rash. Neurological: Negative for weakness and headaches. Objective Physical Exam Constitutional: She is oriented to person, place, and time and well-developed, well-nourished, and in no distress. No distress. HENT: Head: Normocephalic and atraumatic. Right Ear: Ear canal normal. A middle ear effusion (serous) is present. Left Ear: Tympanic membrane and ear canal normal. Nose: Mucosal edema (mild) and rhinorrhea (clear) present. Right sinus exhibits no maxillary sinus tenderness and no frontal sinus tenderness. Left sinus exhibits no maxillary sinus tenderness and no frontal sinus tenderness. Mouth/Throat: Uvula is midline, oropharynx is clear and moist and mucous membranes are normal. No oropharyngeal exudate. Eyes: Conjunctivae and EOM are normal. Pupils are equal, round, and reactive to light. Right eye exhibits no discharge. Left eye exhibits no discharge. Neck: Normal range of motion. Neck supple. No thyromegaly present. Cardiovascular: Normal rate, regular rhythm and normal heart sounds. Pulmonary/Chest: Effort normal and breath sounds normal. No respiratory distress. She has no wheezes. She has no rales. Cough present during exam Lymphadenopathy: She has no cervical adenopathy. Neurological: She is alert and oriented to person, place, and time. Gait normal. GCS score is 15. Skin: Skin is warm and dry. She is not diaphoretic. Psychiatric: Affect and judgment normal. ASSESSMENT/PLAN: 1. Viral illness - ICD9: 079.99, ICD10: B34.9 (primary diagnosis) - Discussed viral etiology and rationale for treatment. - Symptomatic treatment with prn analgesia - Supportive care with fluids and rest - Follow up in one week if symptoms persist or sooner if worsening of symptoms 2. Cough - ICD9: 786.2, ICD10: R05 - ALBUTEROL SULFATE HFA 90 MCG/ACTUATION AEROSOL INHALER - BENZONATATE 100 MG CAPSULE 3. Right acute serous otitis media, recurrence not specified - ICD9: 381.01, ICD10: H65.01 - continue with flonase Janeth Nye APRN.CNP CNOV Observed: 09/05/2017 Status: COMPLETED Source: [place] 9:00 AM [facility] REPOSITORY Office Visit (UCWSTR) DARRIUS GUILLAUME ([id number]) 1960 F NFR Date Time Provider Department 09/05/17 9:00 AM JANETH NYE) [facility] During your visit today, we recorded the following information about you: Temperature Pulse Respiration Blood pressure 97.6 degrees 88/minute 18/minute 120/82 Weight 100.2 kg Janeth Nye APRN.CNP 09/05/2017 9:37 AM Signed Subjective HPI HPI Darrius Guillaume is a 56 year old female who presents today for CC of sinus drainage, congestion with low grade fever which has improved slightly since starting flonase but now with coughing and feeling a bit winded with activity for the last few days. She has tried flonase, benadryl ACTIVE PROBLEM LIST Embolism and Thrombosis of Unspecified Site Non Morbid Obesity Due to Excess Calories Myalgia and Myositis, Unspecified HYPERCOAGULABILITY STATE PRIMARY VENOUS THROMBOSIS DEEP, LOWER EXTREM Migraine With Aura Hypothyroidism Unspecified Asthma(493.90) Mixed Hyperlipidemia Edema Chalazion of Right Lower Eyelid Obstructive Sleep Apnea Syndrome Depression Fibromyalgia BP 120/82 Pulse 88 Temp 36.4 ?C (97.6 ?F) (Tympanic) Resp 18 Wt 100.2 kg (221 lb) SpO2 97% BMI 37.93 kg/m? ALLERGIES Allergen Reactions - Artificial Sweetene* The patient's throat goes into a spasm - Morphine hives, reddness at IV site - Oxycotin [Oxycodone] nausea, vommitting - Penicillins Rash, Swelling - Pneumovax 23 [Pneum* Other: See Comments Severe local reaction Current Outpatient Prescriptions: warfarin (COUMADIN) 3 mg tablet 3 mg Tues and 6 mg all other days Disp: Rfl: 0 levothyroxine (SYNTHROID) 137 mcg tablet Take 1 tablet by mouth once daily. Disp: 30 tablet Rfl: 2 warfarin (COUMADIN) 3 mg tablet Take 2 tablets by mouth daily as directed. Disp: 60 tablet Rfl: 11 warfarin (COUMADIN) 5 mg tablet 3 mg Mon and Fri, 6 mg all other days or as directed Disp: 40 tablet Rfl: 2 venlafaxine ER (EFFEXOR XR) 150 mg 24 hr capsule Take 1 capsule by mouth once daily. Disp: 30 capsule Rfl: 5 cyclobenzaprine (FLEXERIL) 10 mg tablet Take 1 tablet by mouth daily at bedtime. Disp: 30 tablet Rfl: 5 furosemide (LASIX) 20 mg tablet Take 1 tablet by mouth once daily as needed. Disp: 30 tablet Rfl: 12 COMPOUNDED PRESCRIPTION INR home monitoring device. Dx: Hx DVT Disp: 1 Device Rfl: 0 buPROPion XL (WELLBUTRIN XL) 150 mg 24 hr tablet Take 1 tablet by mouth once daily. (Patient not taking: Reported on 09/05/2017 ) Disp: 30 tablet Rfl: 5 SUMAtriptan (IMITREX) 50 mg tablet Take 1 tablet by mouth as needed for Migraine Headache (see administration instructions). (Patient not taking: Reported on 09/05/2017 ) Disp: 6 tablet Rfl: 3 No current facility-administered medications for this visit. Review of Systems Constitutional: Positive for fever (low grade). Negative for chills, diaphoresis and malaise/fatigue. HENT: Positive for congestion. Negative for ear pain and sore throat. Respiratory: Positive for cough and shortness of breath (with exertion). Negative for wheezing. Gastrointestinal: Negative for abdominal pain, diarrhea, nausea and vomiting. Musculoskeletal: Negative for joint pain and myalgias. Skin: Negative for rash. Neurological: Negative for weakness and headaches. Objective Physical Exam Constitutional: She is oriented to person, place, and time and well-developed, well-nourished, and in no distress. No distress. HENT: Head: Normocephalic and atraumatic. Right Ear: Ear canal normal. A middle ear effusion (serous) is present. Left Ear: Tympanic membrane and ear canal normal. Nose: Mucosal edema (mild) and rhinorrhea (clear) present. Right sinus exhibits no maxillary sinus tenderness and no frontal sinus tenderness. Left sinus exhibits no maxillary sinus tenderness and no frontal sinus tenderness. Mouth/Throat: Uvula is midline, oropharynx is clear and moist and mucous membranes are normal. No oropharyngeal exudate. Eyes: Conjunctivae and EOM are normal. Pupils are equal, round, and reactive to light. Right eye exhibits no discharge. Left eye exhibits no discharge. Neck: Normal range of motion. Neck supple. No thyromegaly present. Cardiovascular: Normal rate, regular rhythm and normal heart sounds. Pulmonary/Chest: Effort normal and breath sounds normal. No respiratory distress. She has no wheezes. She has no rales. Cough present during exam Lymphadenopathy: She has no cervical adenopathy. Neurological: She is alert and oriented to person, place, and time. Gait normal. GCS score is 15. Skin: Skin is warm and dry. She is not diaphoretic. Psychiatric: Affect and judgment normal. ASSESSMENT/PLAN: 1. Viral illness - ICD9: 079.99, ICD10: B34.9 (primary diagnosis) - Discussed viral etiology and rationale for treatment. - Symptomatic treatment with prn analgesia - Supportive care with fluids and rest - Follow up in one week if symptoms persist or sooner if worsening of symptoms 2. Cough - ICD9: 786.2, ICD10: R05 - ALBUTEROL SULFATE HFA 90 MCG/ACTUATION AEROSOL INHALER - BENZONATATE 100 MG CAPSULE 3. Right acute serous otitis media, recurrence not specified - ICD9: 381.01, ICD10: H65.01 - continue with flonase PABLO Chapa APRN.CNP 09/05/2017 9:14 AM Signed ASSESSMENT/PLAN: 1. Viral illness - ICD9: 079.99, ICD10: B34.9 (primary diagnosis) - Discussed viral etiology and rationale for treatment. - Symptomatic treatment with prn analgesia - Supportive care with fluids and rest - Follow up in one week if symptoms persist or sooner if worsening of symptoms 2. Cough - ICD9: 786.2, ICD10: R05 - ALBUTEROL SULFATE HFA 90 MCG/ACTUATION AEROSOL INHALER - BENZONATATE 100 MG CAPSULE Referring Provider: SELF [200] Allergies As of Date: 09/05/2017 Noted Allergy Reaction artificial sweetener [Other] 08/03/2007 Comments: The patient's throat goes into a spasm MORPHINE 03/02/2006 Comments: hives, reddness at IV site OXYCOTIN (OXYCODONE) 12/16/2005 Comments: nausea, vommitting PENICILLINS 06/22/2005 2 - Rash 7 - Swelling PNEUMOVAX 23 (PNEUMOCOCCAL 23-PORFIRIO*08/21/2013 14 - Other: See Comments Comments: Severe local reaction Date Reviewed: 09/05/2017 Reviewed by: Janeth Nye - Fully Assessed Reason for Visit: Chest Congestion [236] Cmt: cough and fever x 5 days Primary Visit Diagnosis:Viral illness [B34.9] Other Visit Diagnoses:Cough [R05] Right acute serous otitis media, recurrence not specified [H65.01] Order(s):albuterol HFA (PROAIR HFA) 90 mcg/actuation inhalerInhale 2 Puffs as instructed every 4 hours as needed for Wheezing/Shortness of Breath.Disp: 1 InhalerRfl: 0 benzonatate (TESSALON PERLE) 100 mg capsuleTake 1 capsule by mouth three times daily as needed for Cough for up to 7 days.Disp: 23 capsuleRfl: 0 Prescriptions as of 09/05/2017 Sig: WARFARIN 3 MG TABLET 3 mg Tues and 6 mg all other * LEVOTHYROXINE 137 MCG TABLET Take 1 tablet by mouth once d* WARFARIN 3 MG TABLET Take 2 tablets by mouth daily* WARFARIN 5 MG TABLET 3 mg Mon and Fri, 6 mg all ot* VENLAFAXINE ER 150 MG CAPSULE* Take 1 capsule by mouth once * CYCLOBENZAPRINE 10 MG TABLET Take 1 tablet by mouth daily * FUROSEMIDE 20 MG TABLET Take 1 tablet by mouth once d* COMPOUNDED PRESCRIPTION INR home monitoring device. D* ALBUTEROL SULFATE HFA 90 MCG/* Inhale 2 Puffs as instructed * BENZONATATE 100 MG CAPSULE Take 1 capsule by mouth three* BUPROPION XL 150 MG TAB Take 1 tablet by mouth once d* Patient not taking: Reported on 09/05/2017 SUMATRIPTAN 50 MG TABLET Take 1 tablet by mouth as nee* Patient not taking: Reported on 09/05/2017 Problem List As Of Date 09/05/2017 Noted Resolved VENOUS THROMBOSIS NOS [I74.9] INVALID FOR* Non morbid obesity due to excess calories [E66.*INVALID FOR* MYALGIA AND MYOSITIS NOS [PIQ0018] INVALID FOR* HYPERCOAGULABILITY STATE PRIMARY [D68.59] INVALID FOR* More... VENOUS THROMBOSIS DEEP, LOWER EXTREM [I80.299] INVALID FOR* More... Migraine with aura [G43.109] INVALID FOR* Hypothyroidism [E03.9] INVALID FOR* ASTHMA UNSPECIFIED [J45.909] INVALID FOR* MIXED HYPERLIPIDEMIA [E78.2] INVALID FOR* ACUTE GASTRITIS W/O HEMORRHAGE [K29.00] INVALID FOR*10/15/2008 Edema [R60.9] INVALID FOR* Chalazion of right lower eyelid [H00.12] INVALID FOR* More... Obstructive sleep apnea syndrome [G47.33] INVALID FOR* Depression [F32.9] INVALID FOR* Fibromyalgia [M79.7] INVALID FOR* Other instructions from your clinician: ASSESSMENT/PLAN: 1. Viral illness - ICD9: 079.99, ICD10: B34.9 (primary diagnosis) - Discussed viral etiology and rationale for treatment. - Symptomatic treatment with prn analgesia - Supportive care with fluids and rest - Follow up in one week if symptoms persist or sooner if worsening of symptoms 2. Cough - ICD9: 786.2, ICD10: R05 - ALBUTEROL SULFATE HFA 90 MCG/ACTUATION AEROSOL INHALER - BENZONATATE 100 MG CAPSULE Prescriptions ordered this encounter Disp Refills Start End ALBUTEROL SULFATE HFA 90 MCG/ACTUATI* 1 In* 0 09/05/2017 10/05/2017 Route: INHALATION Sig: Inhale 2 Puffs as instructed every 4 hours as needed for Wheezing/Shortness of Breath. BENZONATATE 100 MG CAPSULE 23 c* 0 09/05/2017 09/12/2017 Route: ORAL Sig: Take 1 capsule by mouth three times daily as needed for Cough for up to 7 days. Encounter Status:Closed by JANETH NYE on 09/05/17 XR KNEE 4V AP/PA Observed: 08/29/2017 Status: F Source: [facility]+LAT/JENNIFER RT 9:53 AM [facility] REPOSITORY * * *Final Report* * * DATE OF EXAM: Aug 29 2017 9:53AM WRX [id number] - XR KNEE 4V AP/PA BOTH+LAT/JENNIFER RT / PROCEDURE REASON: multiple diagnoses * * * * Physician Interpretation * * * * PROCEDURE: Right knee INDICATION: Pain in right knee Other chronic pain . TECHNIQUE: XR KNEE 4V AP/PA BOTH+LAT/JENNIFER RT COMPARISON: None FINDINGS: No significant joint space narrowing or marginal spur formation. No fracture or joint. No osseous lesion. IMPRESSION: No abnormality Cae Engineer: PSCB Transcribe Date/Time: Aug 29 2017 3:19P Dictated by : RIK DAMON MD This examination was interpreted and the report reviewed and electronically signed by: RIK DAMON MD on Aug 29 2017 3:20PM EST [id number] PROGRESS Observed: 08/29/2017 Status: COMPLETED Source: [place] 9:39 AM [facility] [place] REPOSITORY HNO ID: [id number] Author: Ria Mann (Rt), Tech Service: (none) Author Type: Mapping Technician Type: Progress Notes Filed: 08/29/2017 9:41 AM Note Text: Radiology Service Progress Note PATIENT NAME: Darrius Guillaume DATE OF SERVICE: August 29, 2017 TIME: 9:39 AM PATIENT IDENTITY VERIFICATION COMPLETED USING TWO (2) METHODS: Patient confirmed name verbally and Date of . PATIENT GENDER DATA: Female. status: : No status: NO. PATIENT RELEVANT IMPLANT DATA REVIEWED: Not Applicable RADIOLOGY DEPARTMENT: General X-ray: Exam(s) Completed: Lower Extremity X-Ray(s): Knee, AP / Lat / Tunne / Merchant Right and Wt. Bearing: PERIPHERAL IV DATA: Not applicable SIGNED BY: RT Nikolai August 29, 2017 9:39 AM CNOV Observed: 08/29/2017 Status: COMPLETED Source: [place] 8:20 AM [facility] REPOSITORY Office Visit (INTMWS) DARRIUS GUILLAUME ([id number]) 1960 F NFR Date Time Provider Department 08/29/17 8:20 AM KINGS CUMMINGS (INO) INTMWS During your visit today, we recorded the following information about you: Pulse Respiration Blood pressure Weight 80/minute 20/minute 120/84 101.2 kg Kings Cummings ([place]) 08/29/2017 9:23 AM Signed OUTPATIENT VISIT DATE August 29, 2017 OUTPATIENT VISIT TYPE ESTABLISHED PRIMARY CARE PHYSICIAN: Lizz Alvarez MD CHIEF COMPLAINT: Patient presents with: Swelling: cramping in legs and right knee pain , has had for , right breast pain red spot History of Present Illness: Darrius Guillaume is a 56 year old female who was last seen 06/2017 by Lizz Alvarez MD. She has been seen in the past for ACTIVE PROBLEM LIST Embolism and Thrombosis of Unspecified Site Non Morbid Obesity Due to Excess Calories Myalgia and Myositis, Unspecified HYPERCOAGULABILITY STATE PRIMARY VENOUS THROMBOSIS DEEP, LOWER EXTREM Migraine With Aura Hypothyroidism Unspecified Asthma(493.90) Mixed Hyperlipidemia Edema Chalazion of Right Lower Eyelid Obstructive Sleep Apnea Syndrome Depression Fibromyalgia Since the last visit, she states that she has pain and crepitus in in her right knee. Reports she has had crepitus in her knees for years. Pain in the right knee has developed over the last few months. She reports no prior injury. she notes her knee popping when she kneels on it in the garden. She reports her knee does not give way and does not lock. This does not limit her with walking. 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, L4-5 - Irritable bowel syndrome - Myalgia and myositis, unspecified pain management: physical therapy, psychiatric care, epidural steroids, trigger point injections have failed - Other diseases of trachea and bronchus, not elsewhere classified - Other forms of migraine - Other specified acquired hypothyroidism - Other specified gastritis - Rosacea PAST SURGICAL HISTORY Procedure Laterality Date - BIOPSY BREAST needle, negative - CARDIAC DRUG STRESS TEST - DELIVERY ONLY , low cervical x 3 - COLONOSCOP W/ OR W/O [facility] SPEC 04/26/2013 Colonoscopy - COLONOSCOPY - DIAGNOSTIC 03/19 - ECHO - EGD W/O [facility] SPECIMEN W/BX 10/07/00 - EGD W/O [facility] SPECIMEN W/BX 09/29/07 - PAST SURGICAL HISTORY OF 09/2009 performed laser surgery to 3 veins in right lower leg. - REMOVAL ADENOIDS,PRIMARY,<12 Y/O Adenoidectomy - REMOVAL OF TONSILS,<12 Y/O Tonsillectomy - TOTAL ABDOM HYSTERECTOMY Hysterectomy, KWADWO, BSO FAMILY HISTORY Problem Relation Age of Onset - Diabetes Mother - Breast Cancer Mother 1982 - Emphysema Father - Aneurism [Other] [OTHER] Mother - Heart Father - Lipids Mother Social History Substance Use Topics - Smoking status: Never Smoker - Smokeless tobacco: Never Used - Alcohol use No Comment: wine very rare ALLERGIES: ALLERGIES Allergen Reactions - Artificial Sweetene* The patient's throat goes into a spasm - Morphine hives, reddness at IV site - Oxycotin [Oxycodone] nausea, vommitting - Penicillins Rash, Swelling - Pneumovax 23 [Pneum* Other: See Comments Severe local reaction MEDICATIONS levothyroxine (SYNTHROID) 137 mcg tablet Take 1 tablet by mouth once daily. warfarin (COUMADIN) 3 mg tablet Take 2 tablets by mouth daily as directed. venlafaxine ER (EFFEXOR XR) 150 mg 24 hr capsule Take 1 capsule by mouth once daily. cyclobenzaprine (FLEXERIL) 10 mg tablet Take 1 tablet by mouth daily at bedtime. SUMAtriptan (IMITREX) 50 mg tablet Take 1 tablet by mouth as needed for Migraine Headache (see administration instructions). furosemide (LASIX) 20 mg tablet Take 1 tablet by mouth once daily as needed. COMPOUNDED PRESCRIPTION INR home monitoring device. Dx: Hx DVT warfarin (COUMADIN) 3 mg tablet 3 mg Mon and 6 mg all other days warfarin (COUMADIN) 5 mg tablet 3 mg Mon and Fri, 6 mg all other days or as directed buPROPion XL (WELLBUTRIN XL) 150 mg 24 hr tablet Take 1 tablet by mouth once daily. REVIEW OF SYSTEMS: GENERAL: Negative for: Weight loss or gain, Fever or Chills, Weakness and Sleep difficulties. Physical Examination: BP 120/84 Pulse 80 Resp 20 Wt 223 lb (101.2kg) Extended Vitals not filed for this encounter. General appearance: Well appearing, alert, in no acute distress, well-hydrated, well nourished. Skin: Skin color, texture, turgor normal, no suspicious rashes or lesions Extremities: No deformities, edema, skin discoloration, clubbing or cyanosis. Good capillary refill. Musculoskeletal: Muscular strength intact, No joint swelling, deformity, or tenderness. No right knee effusion, non-tender knee cap, + crepitus with flexion and extension Peripheral pulses: Normal Neuro: Gait normal. Sensation grossly intact. Reviewed chart, outside records, tests I personally interviewed, confirmed and edited the above information if obtained by others. TESTING: Glucose (mg/dL) Date Value 03/24/2017 Test sent to [facility]. Potassium (mmol/L) Date Value 03/24/2017 Test sent to [facility]. Sodium (mmol/L) Date Value 03/24/2017 Test sent to [facility]. Chloride (mmol/L) Date Value 03/24/2017 Test sent to [facility]. CO2 (mmol/L) Date Value 03/24/2017 Test sent to [facility]. Creatinine (mg/dL) Date Value 03/24/2017 Test sent to [facility]. BUN (mg/dL) Date Value 03/24/2017 Test sent to [facility]. Anion Gap (mmol/L) Date Value 03/24/2017 Test sent to [facility]. Calcium (mg/dL) Date Value 03/24/2017 Test sent to [facility]. Glucose (mg/dL) Date Value 03/24/2017 Test sent to [facility]. Potassium (mmol/L) Date Value 03/24/2017 Test sent to [facility]. Sodium (mmol/L) Date Value 03/24/2017 Test sent to [facility]. Chloride (mmol/L) Date Value 03/24/2017 Test sent to [facility]. CO2 (mmol/L) Date Value 03/24/2017 Test sent to [facility]. Creatinine (mg/dL) Date Value 03/24/2017 Test sent to [facility]. BUN (mg/dL) Date Value 03/24/2017 Test sent to [facility]. Anion Gap (mmol/L) Date Value 03/24/2017 Test sent to [facility]. Calcium (mg/dL) Date Value 03/24/2017 Test sent to [facility]. Protein, Total (g/dL) Date Value 03/24/2017 Test sent to [facility]. Albumin (g/dL) Date Value 03/24/2017 Test sent to [facility]. Bilirubin, Total (mg/dL) Date Value 03/24/2017 Test sent to [facility]. Alkaline Phosphatase (U/L) Date Value 03/24/2017 Test sent to [facility]. AST (U/L) Date Value 03/24/2017 Test sent to [facility]. ALT (U/L) Date Value 03/24/2017 Test sent to [facility]. Hemoglobin (g/dL) Date Value 03/24/2017 Test sent to [facility]. Hematocrit (%) Date Value 03/24/2017 Test sent to [facility]. WBC (k/uL) Date Value 03/24/2017 Test sent to [facility]. Cholesterol, Total (mg/dL) Date Value 03/24/2017 Test sent to [facility]. HDL Cholesterol (mg/dL) Date Value 03/24/2017 Test sent to [facility]. LDL Cholesterol (mg/dL) Date Value 03/24/2017 Test sent to [facility]. Triglyceride (mg/dL) Date Value 03/24/2017 Test sent to [facility]. Hemoglobin A1C Date Value Ref Range Status 07/02/2016 Test sent to [facility]. 4.0 - 6.0 % Final Comment: Account Credited 08/21/2013 6.0 4.0 - 6.0 % Final Comment: [place] [employer] guidelines indicate that patients with HgbA1c in the range 5.7-6.4% are at increased risk for development of diabetes, and intervention by lifestyle modification may be beneficial. HgbA1c greater or equal to 6.5% is considered diagnostic of diabetes. Ejection Fraction - Result: 60 % Date: 08/02/2011 Time: 06:58:21 IMPRESSION: Ms. Guillaume is a 56 year old woman presents for right knee pain. After my examination and review of data, I make the following recommendations. PLAN AND RECOMMENDATIONS: 1. Chronic pain of right knee - ICD9: 719.46, 338.29, ICD10: M25.561, G89.29 - XR KNEE GENERAL 4V AP BOTH/PA BOTH/LAT/MERC RT - CONSULT TO ORTHOPAEDICS - CONSULT TO PHYSICAL THERAPY Check x-ray today Make an appointment with orthopedic doctor Try home exercises for knee Recommend appointment with physical therapy When the is painful recommend rest, ice for 15-20 minutes and elevation Can use acetaminophen as needed for pain May also try over the counter elastic or neoprene slide on knee brace or thelma wrap to see if this provides some comfort Advised to go to ER if develops chest pain, shortness of breath, or severe worsening of symptoms. Discussed risks, benefits, alternatives, and potential side effects of medications. Ms. Guillaume expressed understanding and agreed with the plan. Kings Cummings APRN.AIR BRAKE RIGGER Kings Cummings ([facility]) 08/29/2017 8:48 AM Signed Check x-ray today Make an appointment with orthopedic doctor Try home exercises for knee Recommend appointment with physical therapy When the is painful recommend rest, ice for 15-20 minutes and elevation Can use acetaminophen as needed for pain May also try over the counter elastic or neoprene slide on knee brace or thelma wrap to see if this provides some comfort Referring Provider: SELF [200] Allergies As of Date: 08/29/2017 Noted Allergy Reaction artificial sweetener [Other] 08/03/2007 Comments: The patient's throat goes into a spasm MORPHINE 03/02/2006 Comments: hives, reddness at IV site OXYCOTIN (OXYCODONE) 12/16/2005 Comments: nausea, vommitting PENICILLINS 06/22/2005 2 - Rash 7 - Swelling PNEUMOVAX 23 (PNEUMOCOCCAL 23-PORFIRIO*08/21/2013 14 - Other: See Comments Comments: Severe local reaction Date Reviewed: 08/29/2017 Reviewed by: Therese Villarreal (Jessica), JESSICA - Fully Assessed Reason for Visit: Swelling [205] Cmt: cramping in legs and right knee pain , has had for , right breast pain red spot Reason For Visit History Recorded Primary Visit Diagnosis:Chronic pain of right knee [M25.561, G89.29] Order(s):XR KNEE GENERAL 4V AP BOTH/PA BOTH/LAT/MERC RT [4589050] Order #: [id number] FUTURE CONSULT TO ORTHOPAEDICS [9036] Order #: [id number]: 1 CONSULT TO PHYSICAL THERAPY [1334] Order #: [id number]: 1 Prescriptions as of 08/29/2017 Sig: LEVOTHYROXINE 137 MCG TABLET Take 1 tablet by mouth once d* WARFARIN 3 MG TABLET Take 2 tablets by mouth daily* VENLAFAXINE ER 150 MG CAPSULE* Take 1 capsule by mouth once * CYCLOBENZAPRINE 10 MG TABLET Take 1 tablet by mouth daily * SUMATRIPTAN 50 MG TABLET Take 1 tablet by mouth as nee* FUROSEMIDE 20 MG TABLET Take 1 tablet by mouth once d* COMPOUNDED PRESCRIPTION INR home monitoring device. D* WARFARIN 3 MG TABLET 3 mg Mon and 6 mg all other d* WARFARIN 5 MG TABLET 3 mg Mon and Fri, 6 mg all ot* BUPROPION XL 150 MG TAB Take 1 tablet by mouth once d* Problem List As Of Date 08/29/2017 Noted Resolved VENOUS THROMBOSIS NOS [I74.9] INVALID FOR* Non morbid obesity due to excess calories [E66.*INVALID FOR* MYALGIA AND MYOSITIS NOS [[id number]] INVALID FOR* HYPERCOAGULABILITY STATE PRIMARY [D68.59] INVALID FOR* More... VENOUS THROMBOSIS DEEP, LOWER EXTREM [I80.299] INVALID FOR* More... Migraine with aura [G43.109] INVALID FOR* Hypothyroidism [E03.9] INVALID FOR* ASTHMA UNSPECIFIED [J45.909] INVALID FOR* MIXED HYPERLIPIDEMIA [E78.2] INVALID FOR* ACUTE GASTRITIS W/O HEMORRHAGE [K29.00] INVALID FOR*10/15/2008 Edema [R60.9] INVALID FOR* Chalazion of right lower eyelid [H00.12] INVALID FOR* More... Obstructive sleep apnea syndrome [G47.33] INVALID FOR* Depression [F32.9] INVALID FOR* Fibromyalgia [M79.7] INVALID FOR* Other instructions from your clinician: Check x-ray today Make an appointment with orthopedic doctor Try home exercises for knee Recommend appointment with physical therapy When the is painful recommend rest, ice for 15-20 minutes and elevation Can use acetaminophen as needed for pain May also try over the counter elastic or neoprene slide on knee brace or thelma wrap to see if this provides some comfort Medications Discontinued During This Encounter Phentermine HCl (ADIPEX-P) 37.5 mg t* 30 t* 0 06/15/2017 08/29/2017 Class: Print RX Route: ORAL Sig: Take 1 tablet by mouth once daily for 30 days. Disc: Reason for discontinue is not on file. Encounter Status:Closed by KINGS OLSEN on 08/29/17 PROGRESS Observed: 08/29/2017 Status: COMPLETED Source: [place] 8:10 AM [facility] REPOSITORY HNO ID: [id number] Author: Kings Cummings (Ino) Service: (none) Author Type: Nurse Specialist Type: Progress Notes Filed: 08/29/2017 9:23 AM Note Text: OUTPATIENT VISIT DATE August 29, 2017 OUTPATIENT VISIT TYPE ESTABLISHED PRIMARY CARE PHYSICIAN: Lizz Alvarez MD CHIEF COMPLAINT: Patient presents with: Swelling: cramping in legs and right knee pain , has had for , right breast pain red spot History of Present Illness: Darrius Guillaume is a 56 year old female who was last seen 06/2017 by Lizz Alvarez MD. She has been seen in the past for ACTIVE PROBLEM LIST Embolism and Thrombosis of Unspecified Site Non Morbid Obesity Due to Excess Calories Myalgia and Myositis, Unspecified HYPERCOAGULABILITY STATE PRIMARY VENOUS THROMBOSIS DEEP, LOWER EXTREM Migraine With Aura Hypothyroidism Unspecified Asthma(493.90) Mixed Hyperlipidemia Edema Chalazion of Right Lower Eyelid Obstructive Sleep Apnea Syndrome Depression Fibromyalgia Since the last visit, she states that she has pain and crepitus in in her right knee. Reports she has had crepitus in her knees for years. Pain in the right knee has developed over the last few months. She reports no prior injury. she notes her knee popping when she kneels on it in the garden. She reports her knee does not give way and does not lock. This does not limit her with walking. 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, L4-5 - Irritable bowel syndrome - Myalgia and myositis, unspecified pain management: physical therapy, psychiatric care, epidural steroids, trigger point injections have failed - Other diseases of trachea and bronchus, not elsewhere classified - Other forms of migraine - Other specified acquired hypothyroidism - Other specified gastritis - Rosacea PAST SURGICAL HISTORY Procedure Laterality Date - BIOPSY BREAST needle, negative - CARDIAC DRUG STRESS TEST - DELIVERY ONLY , low cervical x 3 - COLONOSCOP W/ OR W/O [facility] SPEC 04/26/2013 Colonoscopy - COLONOSCOPY - DIAGNOSTIC 03/19 - ECHO - EGD W/O [facility] SPECIMEN W/BX 10/07/00 - EGD W/O [facility] SPECIMEN W/BX 09/29/07 - PAST SURGICAL HISTORY OF 09/2009 performed laser surgery to 3 veins in right lower leg. - REMOVAL ADENOIDS,PRIMARY,<12 Y/O Adenoidectomy - REMOVAL OF TONSILS,<12 Y/O Tonsillectomy - TOTAL ABDOM HYSTERECTOMY Hysterectomy, KWADWO, BSO FAMILY HISTORY Problem Relation Age of Onset - Diabetes Mother - Breast Cancer Mother 1982 - Emphysema Father - Aneurism [Other] [OTHER] Mother - Heart Father - Lipids Mother Social History Substance Use Topics - Smoking status: Never Smoker - Smokeless tobacco: Never Used - Alcohol use No Comment: wine very rare ALLERGIES: ALLERGIES Allergen Reactions - Artificial Sweetene* The patient's throat goes into a spasm - Morphine hives, reddness at IV site - Oxycotin [Oxycodone] nausea, vommitting - Penicillins Rash, Swelling - Pneumovax 23 [Pneum* Other: See Comments Severe local reaction MEDICATIONS levothyroxine (SYNTHROID) 137 mcg tablet Take 1 tablet by mouth once daily. warfarin (COUMADIN) 3 mg tablet Take 2 tablets by mouth daily as directed. venlafaxine ER (EFFEXOR XR) 150 mg 24 hr capsule Take 1 capsule by mouth once daily. cyclobenzaprine (FLEXERIL) 10 mg tablet Take 1 tablet by mouth daily at bedtime. SUMAtriptan (IMITREX) 50 mg tablet Take 1 tablet by mouth as needed for Migraine Headache (see administration instructions). furosemide (LASIX) 20 mg tablet Take 1 tablet by mouth once daily as needed. COMPOUNDED PRESCRIPTION INR home monitoring device. Dx: Hx DVT warfarin (COUMADIN) 3 mg tablet 3 mg Mon and 6 mg all other days warfarin (COUMADIN) 5 mg tablet 3 mg Mon and Fri, 6 mg all other days or as directed buPROPion XL (WELLBUTRIN XL) 150 mg 24 hr tablet Take 1 tablet by mouth once daily. REVIEW OF SYSTEMS: GENERAL: Negative for: Weight loss or gain, Fever or Chills, Weakness and Sleep difficulties. Physical Examination: BP 120/84 Pulse 80 Resp 20 Wt 223 lb (101.2kg) Extended Vitals not filed for this encounter. General appearance: Well appearing, alert, in no acute distress, well-hydrated, well nourished. Skin: Skin color, texture, turgor normal, no suspicious rashes or lesions Extremities: No deformities, edema, skin discoloration, clubbing or cyanosis. Good capillary refill. Musculoskeletal: Muscular strength intact, No joint swelling, deformity, or tenderness. No right knee effusion, non-tender knee cap, + crepitus with flexion and extension Peripheral pulses: Normal Neuro: Gait normal. Sensation grossly intact. Reviewed chart, outside records, tests I personally interviewed, confirmed and edited the above information if obtained by others. TESTING: Glucose (mg/dL) Date Value 03/24/2017 Test sent to [facility]. Potassium (mmol/L) Date Value 03/24/2017 Test sent to [facility]. Sodium (mmol/L) Date Value 03/24/2017 Test sent to [facility]. Chloride (mmol/L) Date Value 03/24/2017 Test sent to [facility]. CO2 (mmol/L) Date Value 03/24/2017 Test sent to [facility]. Creatinine (mg/dL) Date Value 03/24/2017 Test sent to [facility]. BUN (mg/dL) Date Value 03/24/2017 Test sent to [facility]. Anion Gap (mmol/L) Date Value 03/24/2017 Test sent to [facility]. Calcium (mg/dL) Date Value 03/24/2017 Test sent to [facility]. Glucose (mg/dL) Date Value 03/24/2017 Test sent to [facility]. Potassium (mmol/L) Date Value 03/24/2017 Test sent to [facility]. Sodium (mmol/L) Date Value 03/24/2017 Test sent to [facility]. Chloride (mmol/L) Date Value 03/24/2017 Test sent to [facility]. CO2 (mmol/L) Date Value 03/24/2017 Test sent to [facility]. Creatinine (mg/dL) Date Value 03/24/2017 Test sent to [facility]. BUN (mg/dL) Date Value 03/24/2017 Test sent to [facility]. Anion Gap (mmol/L) Date Value 03/24/2017 Test sent to [facility]. Calcium (mg/dL) Date Value 03/24/2017 Test sent to [facility]. Protein, Total (g/dL) Date Value 03/24/2017 Test sent to [facility]. Albumin (g/dL) Date Value 03/24/2017 Test sent to [facility]. Bilirubin, Total (mg/dL) Date Value 03/24/2017 Test sent to [facility]. Alkaline Phosphatase (U/L) Date Value 03/24/2017 Test sent to [facility]. AST (U/L) Date Value 03/24/2017 Test sent to [facility]. ALT (U/L) Date Value 03/24/2017 Test sent to [facility]. Hemoglobin (g/dL) Date Value 03/24/2017 Test sent to [facility]. Hematocrit (%) Date Value 03/24/2017 Test sent to [facility]. WBC (k/uL) Date Value 03/24/2017 Test sent to [facility]. Cholesterol, Total (mg/dL) Date Value 03/24/2017 Test sent to [facility]. HDL Cholesterol (mg/dL) Date Value 03/24/2017 Test sent to [facility]. LDL Cholesterol (mg/dL) Date Value 03/24/2017 Test sent to [facility]. Triglyceride (mg/dL) Date Value 03/24/2017 Test sent to [facility]. Hemoglobin A1C Date Value Ref Range Status 07/02/2016 Test sent to [facility]. 4.0 - 6.0 % Final Comment: Account Credited 08/21/2013 6.0 4.0 - 6.0 % Final Comment: [place] [employer] guidelines indicate that patients with HgbA1c in the range 5.7-6.4% are at increased risk for development of diabetes, and intervention by lifestyle modification may be beneficial. HgbA1c greater or equal to 6.5% is considered diagnostic of diabetes. Ejection Fraction - Result: 60 % Date: 08/02/2011 Time: 06:58:21 IMPRESSION: Ms. Guillaume is a 56 year old woman presents for right knee pain. After my examination and review of data, I make the following recommendations. PLAN AND RECOMMENDATIONS: 1. Chronic pain of right knee - ICD9: 719.46, 338.29, ICD10: M25.561, G89.29 - XR KNEE GENERAL 4V AP BOTH/PA BOTH/LAT/MERC RT - CONSULT TO ORTHOPAEDICS - CONSULT TO PHYSICAL THERAPY Check x-ray today Make an appointment with orthopedic doctor Try home exercises for knee Recommend appointment with physical therapy When the is painful recommend rest, ice for 15-20 minutes and elevation Can use acetaminophen as needed for pain May also try over the counter elastic or neoprene slide on knee brace or thelma wrap to see if this provides some comfort Advised to go to ER if develops chest pain, shortness of breath, or severe worsening of symptoms. Discussed risks, benefits, alternatives, and potential side effects of medications. Ms. Guillaume expressed understanding and agreed with the plan. Kings Cummings APRN.AIR BRAKE RIGGER PROGRESS Observed: 07/13/2017 Status: COMPLETED Source: [place] 11:42 AM [facility] [place] REPOSITORY HNO ID: [id number] Author: Lizz Alvarez Service: (none) Author Type: Physician Type: Progress Notes Filed: 07/14/2017 5:41 PM Note Text: Chief Complaint Patient presents with: F/U 1 month: weight-adipex Hospital Follow Up: [facility] HPI Darrius Guillaume is a 56 year old female who presents here today for Above Complaints.. Obesity: pt has been taking Adipex, tolerated well as far as she could tell. She stated she did not lose any weight. She stated she has not been over eating and has been physically active. Was admitted to [facility] on 07/02/17 to 07/04/17 for elevated heart rate and SOB. She stated every time she stood up her heart rate would go up. She had Echo and CT which was normal, no clots were found. Was instructed to d/c Adipex as they thought that the Adipex might be contributing to the rapid heart rate. Found that thyroid level was too high and placed Levoxyl 137 mcg daily. She is feeling better now. Feels she has an issue with her throat, is hoarse. Did have some sharp pain when swallowing, but denies any further issues with this. Denies any trouble swallowing, no sore throat. She states that she avoids artificial sweeteners because that seems to make swallowing difficult for her. Denies much sinus drainage. Past medical history, appointments, medications, allergies reviewed. 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, L4-5 - Irritable bowel syndrome - Myalgia and myositis, unspecified pain management: physical therapy, psychiatric care, epidural steroids, trigger point injections have failed - Other diseases of trachea and bronchus, not elsewhere classified - Other forms of migraine - Other specified acquired hypothyroidism - Other specified gastritis - Rosacea Previous Surgical History PAST SURGICAL HISTORY Procedure Laterality Date - BIOPSY BREAST needle, negative - CARDIAC DRUG STRESS TEST - DELIVERY ONLY , low cervical x 3 - COLONOSCOP W/ OR W/O [facility] SPEC 04/26/2013 Colonoscopy - COLONOSCOPY - DIAGNOSTIC 03/19 - ECHO - EGD W/O [facility] SPECIMEN W/BX 10/07/00 - EGD W/O [facility] SPECIMEN W/BX 09/29/07 - PAST SURGICAL HISTORY OF 09/2009 performed laser surgery to 3 veins in right lower leg. - REMOVAL ADENOIDS,PRIMARY,<12 Y/O Adenoidectomy - REMOVAL OF TONSILS,<12 Y/O Tonsillectomy - TOTAL ABDOM HYSTERECTOMY Hysterectomy, KWADWO, BSO Family History FAMILY HISTORY Problem Relation Age of Onset - Diabetes Mother - Breast Cancer Mother 1982 - Emphysema Father - Aneurism [Other] [OTHER] Mother - Heart Father - Lipids Mother Patient Allergies ALLERGIES Allergen Reactions - Morphine hives, reddness at IV site - Oxycotin [Oxycodone] nausea, vommitting - Penicillins Rash, Swelling - Pneumovax 23 [Pneum* Other: See Comments Severe local reaction - Artificial Sweetene* The patient's throat goes into a spasm Current Medications Current Outpatient Prescriptions on File Prior to Visit: warfarin (COUMADIN) 3 mg tablet 3 mg Mon and Fri, 6 mg all other days or as directed warfarin (COUMADIN) 5 mg tablet 3 mg Mon and Fri, 6 mg all other days or as directed levothyroxine (LEVOXYL) 150 mcg tablet Take 1 tablet by mouth once daily. Take on empty stomach. For Thyroid. Phentermine HCl (ADIPEX-P) 37.5 mg tablet Take 1 tablet by mouth once daily for 30 days. venlafaxine ER (EFFEXOR XR) 150 mg 24 hr capsule Take 1 capsule by mouth once daily. buPROPion XL (WELLBUTRIN XL) 150 mg 24 hr tablet Take 1 tablet by mouth once daily. cyclobenzaprine (FLEXERIL) 10 mg tablet Take 1 tablet by mouth daily at bedtime. SUMAtriptan (IMITREX) 50 mg tablet Take 1 tablet by mouth as needed for Migraine Headache (see administration instructions). furosemide (LASIX) 20 mg tablet Take 1 tablet by mouth once daily as needed. COMPOUNDED PRESCRIPTION INR home monitoring device. Dx: Hx DVT No current facility-administered medications on file prior to visit. 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 Oropharynx: Lips, mucosa, and tongue normal, teeth and gums normal, oropharynx normal. Neck: Supple, no adenopathy; thyroid symmetric, normal size. Lungs: Lungs clear to auscultation. No wheezing, rhonchi, rales. Heart: RRR without murmur, gallop, or rubs. No ectopy. Health Maintenance List HEPATITIS C SCREENING due on 2003 MAMMOGRAM due on 02/03/2018 DIABETES SCREEN due on 03/24/2020 LIPID SCREEN due on 03/24/2022 COLORECTAL CANCER SCREENING,SEE MODIFIER due on 04/26/2023 TETANUS due on 03/24/2027 INFLUENZA Completed Data reviewed None ASSESSMENT/PLAN: 1. Non morbid obesity due to excess calories - ICD9: 278.00, ICD10: E66.09 (primary diagnosis) Continue to eat healthy and regular exercise 2. Acquired hypothyroidism - ICD9: 244.9, ICD10: E03.9 - Instructed patient on importance of taking on an empty stomach either first thing in the morning or at bedtime. Continue on Levoxyl 137 mcg daily Recheck in 2 months. 3. Dysphagia, unspecified type - ICD9: 787.20, ICD10: R13.10 Continue to monitor Follow up in 2 months with labs. Lizz Alvarez MD The documentation for this note was completed by Jill Temple Ma acting as scribe for Lizz Alvarez MD. July 13, 2017 11:42 AM. CNOV Observed: 07/13/2017 Status: COMPLETED Source: [place] 11:40 AM [facility] REPOSITORY Office Visit (FAMPWS) DARRIUS GUILLAUME ([id number]) 1960 F NFR Date Time Provider Department 07/13/17 11:40 AM LIZZ ALVAREZ FAMPattyWS During your visit today, we recorded the following information about you: Pulse Respiration Blood pressure Weight 74/minute 16/minute 120/74 99.8 kg Height 1.626 m Lizz Alvarez MD 07/14/2017 5:41 PM Signed Chief Complaint Patient presents with: F/U 1 month: weight-adipex Hospital Follow Up: [facility] HPI Darrius Guillaume is a 56 year old female who presents here today for Above Complaints.. Obesity: pt has been taking Adipex, tolerated well as far as she could tell. She stated she did not lose any weight. She stated she has not been over eating and has been physically active. Was admitted to [facility] on 07/02/17 to 07/04/17 for elevated heart rate and SOB. She stated every time she stood up her heart rate would go up. She had Echo and CT which was normal, no clots were found. Was instructed to d/c Adipex as they thought that the Adipex might be contributing to the rapid heart rate. Found that thyroid level was too high and placed Levoxyl 137 mcg daily. She is feeling better now. Feels she has an issue with her throat, is hoarse. Did have some sharp pain when swallowing, but denies any further issues with this. Denies any trouble swallowing, no sore throat. She states that she avoids artificial sweeteners because that seems to make swallowing difficult for her. Denies much sinus drainage. Past medical history, appointments, medications, allergies reviewed. 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, L4-5 - Irritable bowel syndrome - Myalgia and myositis, unspecified pain management: physical therapy, psychiatric care, epidural steroids, trigger point injections have failed - Other diseases of trachea and bronchus, not elsewhere classified - Other forms of migraine - Other specified acquired hypothyroidism - Other specified gastritis - Rosacea Previous Surgical History PAST SURGICAL HISTORY Procedure Laterality Date - BIOPSY BREAST needle, negative - CARDIAC DRUG STRESS TEST - DELIVERY ONLY , low cervical x 3 - COLONOSCOP W/ OR W/O [facility] SPEC 04/26/2013 Colonoscopy - COLONOSCOPY - DIAGNOSTIC 03/19 - ECHO - EGD W/O [facility] SPECIMEN W/BX 10/07/00 - EGD W/O [facility] SPECIMEN W/BX 09/29/07 - PAST SURGICAL HISTORY OF 09/2009 performed laser surgery to 3 veins in right lower leg. - REMOVAL ADENOIDS,PRIMARY,ANDlt;11 Y/O Adenoidectomy - REMOVAL OF TONSILS,ANDlt;11 Y/O Tonsillectomy - TOTAL ABDOM HYSTERECTOMY Hysterectomy, KWADWO, BSO Family History FAMILY HISTORY Problem Relation Age of Onset - Diabetes Mother - Breast Cancer Mother 1982 - Emphysema Father - Aneurism [Other] [OTHER] Mother - Heart Father - Lipids Mother Patient Allergies ALLERGIES Allergen Reactions - Morphine hives, reddness at IV site - Oxycotin [Oxycodone] nausea, vommitting - Penicillins Rash, Swelling - Pneumovax 23 [Pneum* Other: See Comments Severe local reaction - Artificial Sweetene* The patient's throat goes into a spasm Current Medications Current Outpatient Prescriptions on File Prior to Visit: warfarin (COUMADIN) 3 mg tablet 3 mg Mon and Fri, 6 mg all other days or as directed warfarin (COUMADIN) 5 mg tablet 3 mg Mon and Fri, 6 mg all other days or as directed levothyroxine (LEVOXYL) 150 mcg tablet Take 1 tablet by mouth once daily. Take on empty stomach. For Thyroid. Phentermine HCl (ADIPEX-P) 37.5 mg tablet Take 1 tablet by mouth once daily for 30 days. venlafaxine ER (EFFEXOR XR) 150 mg 24 hr capsule Take 1 capsule by mouth once daily. buPROPion XL (WELLBUTRIN XL) 150 mg 24 hr tablet Take 1 tablet by mouth once daily. cyclobenzaprine (FLEXERIL) 10 mg tablet Take 1 tablet by mouth daily at bedtime. SUMAtriptan (IMITREX) 50 mg tablet Take 1 tablet by mouth as needed for Migraine Headache (see administration instructions). furosemide (LASIX) 20 mg tablet Take 1 tablet by mouth once daily as needed. COMPOUNDED PRESCRIPTION INR home monitoring device. Dx: Hx DVT No current facility-administered medications on file prior to visit. 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 Oropharynx: Lips, mucosa, and tongue normal, teeth and gums normal, oropharynx normal. Neck: Supple, no adenopathy; thyroid symmetric, normal size. Lungs: Lungs clear to auscultation. No wheezing, rhonchi, rales. Heart: RRR without murmur, gallop, or rubs. No ectopy. Health Maintenance List HEPATITIS C SCREENING due on 2003 MAMMOGRAM due on 02/03/2018 DIABETES SCREEN due on 03/24/2020 LIPID SCREEN due on 03/24/2022 COLORECTAL CANCER SCREENING,SEE MODIFIER due on 04/26/2023 TETANUS due on 03/24/2027 INFLUENZA Completed Data reviewed None ASSESSMENT/PLAN: 1. Non morbid obesity due to excess calories - ICD9: 278.00, ICD10: E66.09 (primary diagnosis) Continue to eat healthy and regular exercise 2. Acquired hypothyroidism - ICD9: 244.9, ICD10: E03.9 - Instructed patient on importance of taking on an empty stomach either first thing in the morning or at bedtime. Continue on Levoxyl 137 mcg daily Recheck in 2 months. 3. Dysphagia, unspecified type - ICD9: 787.20, ICD10: R13.10 Continue to monitor Follow up in 2 months with labs. Lizz Alvarez MD The documentation for this note was completed by Jill Temple Ma acting as scribe for Lizz Alvarez MD. July 13, 2017 11:42 AM. Referring Provider: LIZZ ALVAREZ [[id number]] Allergies As of Date: 07/13/2017 Noted Allergy Reaction MORPHINE 03/02/2006 Comments: hives, reddness at IV site OXYCOTIN (OXYCODONE) 12/16/2005 Comments: nausea, vommitting PENICILLINS 06/22/2005 2 - Rash 7 - Swelling PNEUMOVAX 23 (PNEUMOCOCCAL 23-PORFIRIO*08/21/2013 14 - Other: See Comments Comments: Severe local reaction artificial sweetener [Other] 08/03/2007 Comments: The patient's throat goes into a spasm Date Reviewed: 06/15/2017 Reviewed by: Radha Montelongo STUDENT - Fully Assessed Reason for Visit: F/U 1 month [1175] Cmt: [facility] Follow Up [177] Cmt: [facility] Reason For Visit History Recorded Primary Visit Diagnosis:Non morbid obesity due to excess calories [E66.09] Other Visit Diagnoses:Acquired hypothyroidism [E03.9] Dysphagia, unspecified type [R13.10] Fibromyalgia [M79.7] Order(s):TSH BLD [SQTSH] Order #: [id number] FUTURE T4/FTI/T4U [[id number]] Order #: [id number] FUTURE Prescriptions as of 07/13/2017 Sig: LEVOTHYROXINE 137 MCG TABLET Take 1 tablet by mouth once d* WARFARIN 3 MG TABLET 3 mg Mon and Fri, 6 mg all ot* WARFARIN 5 MG TABLET 3 mg Mon and Fri, 6 mg all ot* VENLAFAXINE ER 150 MG CAPSULE* Take 1 capsule by mouth once * BUPROPION XL 150 MG TAB Take 1 tablet by mouth once d* CYCLOBENZAPRINE 10 MG TABLET Take 1 tablet by mouth daily * SUMATRIPTAN 50 MG TABLET Take 1 tablet by mouth as nee* FUROSEMIDE 20 MG TABLET Take 1 tablet by mouth once d* COMPOUNDED PRESCRIPTION INR home monitoring device. D* LEVOTHYROXINE 150 MCG TABLET Take 1 tablet by mouth once d* PHENTERMINE 37.5 MG TABLET Take 1 tablet by mouth once d* Medication notes this encounter LEVOTHYROXINE 137 MCG TABLET >> Jill Temple Ma 07/13/2017 11:49 AM >> JILL TEMPLE MA TueJul 13, 2017 11:49 AM Received from: External Pharmacy Received Sig: TAKE ONE TABLET BY MOUTH DAILY Problem List As Of Date 07/13/2017 Noted Resolved VENOUS THROMBOSIS NOS [I74.9] INVALID FOR* Non morbid obesity due to excess calories [E66.*INVALID FOR* MYALGIA AND MYOSITIS NOS [MSG0934] INVALID FOR* HYPERCOAGULABILITY STATE PRIMARY [D68.59] INVALID FOR* More... VENOUS THROMBOSIS DEEP, LOWER EXTREM [I80.299] INVALID FOR* More... Migraine with aura [G43.109] INVALID FOR* Hypothyroidism [E03.9] INVALID FOR* ASTHMA UNSPECIFIED [J45.909] INVALID FOR* MIXED HYPERLIPIDEMIA [E78.2] INVALID FOR* ACUTE GASTRITIS W/O HEMORRHAGE [K29.00] INVALID FOR*10/15/2008 Edema [R60.9] INVALID FOR* Chalazion of right lower eyelid [H00.12] INVALID FOR* More... Obstructive sleep apnea syndrome [G47.33] INVALID FOR* Depression [F32.9] INVALID FOR* Fibromyalgia [M79.7] INVALID FOR* Disposition: Return in about 2 months (around 09/12/2017). Follow-up and Disposition History Recorded Encounter Status:Closed by LIZZ ALVAREZ MD on 07/14/17 KEEGAN Observed: 07/05/2017 Status: COMPLETED Source: [place] 12:00 AM [facility] REPOSITORY Telephone ([facility]) DARRIUS GUILLAUME ([id number]) 1960 F NFR Date Time Provider Department 07/05/17 LIZZ ALVAREZ During your visit today, we recorded the following information about you: Reyna Rik Mccabe 07/05/2017 2:28 PM Signed Current dose: 6 mg Nrw-Dvj-Plt-Sat and 3 mg all other days Current INR: 1.8 Previous INR: 2.0 Reyna Pickensanne Rik Mccabe 07/05/2017 2:28 PM Signed Current dose: 6 mg Hbp-Vxa-Gwu-Sat and 3 mg all other days Current INR: 1.8 Previous INR: 2.0 Reyna Alvarez MD 07/05/2017 4:06 PM Signed Go to 3 mg on Mon and Fri, 6 mg all other days Recheck in 1 week MD Gayathri Monte LPN 07/05/2017 4:14 PM Signed Pt notified of results, change of medication dose, and recheck. Gayathri Temple Ma 07/05/2017 4:28 PM Signed Tracker and med list updated. Jill Temple Ma 07/05/2017 4:28 PM Signed Addended by: JILL TEMPLE MA on: 07/05/2017 04:28 PM Modules accepted: Orders Allergies As of Date: 07/05/2017 Noted Allergy Reaction MORPHINE 03/02/2006 Comments: hives, reddness at IV site OXYCOTIN (OXYCODONE) 12/16/2005 Comments: nausea, vommitting PENICILLINS 06/22/2005 2 - Rash 7 - Swelling PNEUMOVAX 23 (PNEUMOCOCCAL 23-PORFIRIO*08/21/2013 14 - Other: See Comments Comments: Severe local reaction artificial sweetener [Other] 08/03/2007 Comments: The patient's throat goes into a spasm Date Reviewed: 06/15/2017 Reviewed by: Radha Montelongo STUDENT - Fully Assessed Reason for Visit: Anticoagulation [8] Visit Diagnosis:HYPERCOAGULABILITY STATE PRIMARY [D68.59] Order(s):PROTHROMBIN TIME/PT [SQPT] Order #: [id number] warfarin (COUMADIN) 3 mg tablet3 mg Mon and Fri, 6 mg all other days or as directedDisp: Rfl: 0 warfarin (COUMADIN) 5 mg tablet3 mg Mon and Fri, 6 mg all other days or as directedDisp: 40 tabletRfl: 2 Prescriptions as of 07/05/2017 Sig: WARFARIN 3 MG TABLET 3 mg Mon and Fri, 6 mg all ot* WARFARIN 5 MG TABLET 3 mg Mon and Fri, 6 mg all ot* LEVOTHYROXINE 150 MCG TABLET Take 1 tablet by mouth once d* PHENTERMINE 37.5 MG TABLET Take 1 tablet by mouth once d* VENLAFAXINE ER 150 MG CAPSULE* Take 1 capsule by mouth once * BUPROPION XL 150 MG TAB Take 1 tablet by mouth once d* CYCLOBENZAPRINE 10 MG TABLET Take 1 tablet by mouth daily * SUMATRIPTAN 50 MG TABLET Take 1 tablet by mouth as nee* FUROSEMIDE 20 MG TABLET Take 1 tablet by mouth once d* COMPOUNDED PRESCRIPTION INR home monitoring device. D* Problem List As Of Date 07/05/2017 Noted Resolved VENOUS THROMBOSIS NOS [I74.9] INVALID FOR* Non morbid obesity due to excess calories [E66.*INVALID FOR* MYALGIA AND MYOSITIS NOS [LSS1427] INVALID FOR* HYPERCOAGULABILITY STATE PRIMARY [D68.59] INVALID FOR* More... VENOUS THROMBOSIS DEEP, LOWER EXTREM [I80.299] INVALID FOR* More... Migraine with aura [G43.109] INVALID FOR* Hypothyroidism [E03.9] INVALID FOR* ASTHMA UNSPECIFIED [J45.909] INVALID FOR* MIXED HYPERLIPIDEMIA [E78.2] INVALID FOR* ACUTE GASTRITIS W/O HEMORRHAGE [K29.00] INVALID FOR*10/15/2008 Edema [R60.9] INVALID FOR* Chalazion of right lower eyelid [H00.12] INVALID FOR* More... Obstructive sleep apnea syndrome [G47.33] INVALID FOR* Depression [F32.9] INVALID FOR* Fibromyalgia [M79.7] INVALID FOR* Prescriptions ordered this encounter Disp Refills Start End WARFARIN 3 MG TABLET 0 07/05/2017 Class: Med Update Si mg Mon and Fri, 6 mg all other days or as directed Cosign required by LIZZ ALVAREZ[[id number]] WARFARIN 5 MG TABLET 40 t* 2 07/05/2017 Class: Med Update Si mg Mon and Fri, 6 mg all other days or as directed Cosign required by LIZZ ALVAREZ[[id number]] Medications Discontinued During This Encounter warfarin (COUMADIN) 3 mg tablet 0 06/13/2017 07/05/2017 Class: Med Update Si mg on Mon, Wed, Fri, Sat and 3 mg all other days or as directed Disc: Reason for discontinue is not on file. Cosign accepted by LIZZ ALVAREZ MD[[id number]] on 06/13/2017 4:52 PM warfarin (COUMADIN) 5 mg tablet 40 t* 2 04/29/2017 07/05/2017 Class: Med Update Si mg daily or as directed Disc: Reason for discontinue is not on file. Cosign accepted by LIZZ ALVAREZ MD[[id number]] on 04/29/2017 3:18 PM Encounter Status:Closed by GAYATHRI DELEON LPN on 07/05/17 12 LEAD ELECTROCARDIOGRAM Observed: 06/29/2017 Status: F Source: [place] 4:17 PM [facility] REPOSITORY [facility] Cardiovascular Services [address] [place] [address] 12 Lead EKG 06/26/17 1801 MR#: [id number] Acct: [id number] Name: DARRIUS GUILLAUME I Rep #: [id number] : 1960 56 From: Mj Ratliff MD Attending Dr: Irineo Rosario MD Status: DIS JUDITH Ordering Dr: River Matamoros MD Date: 06/27/17 Location: U Sex: F C Admitted: 06/25/17 Test Reason : TACHY Blood Pressure : / mmHG Vent. Rate : 114 BPM Atrial Rate : 114 BPM P-R Int : 124 ms QRS Dur : 084 ms QT Int : 336 ms P-R-T Axes : 047 122 050 degrees QTc Int : 463 ms Sinus tachycardia Otherwise normal ECG When compared with ECG of 25-JUN-2017 14:36, MANUAL COMPARISON REQUIRED, DATA IS UNCONFIRMED Confirmed by MJ RATLIFF MD ([id number]), assistant film editor LISA ETIENNE ([id number]) on 06/29/2017 4:17:36 PM Referred By: IRLANDA Confirmed By:MJ RATLIFF MD 06/29/17 1617 Date Mj Ratliff MD CC: Lizz Alvarez MD; River Matamoros MD Signed 12 LEAD ELECTROCARDIOGRAM Observed: 06/29/2017 Status: F Source: [place] 4:15 PM [facility] HOSPITAL REPOSITORY [facility] Cardiovascular Services [address] [place] [address] 12 Lead EKG 06/27/17 0532 MR#: [id number] Acct: [id number] Name: DARRIUS GUILLAUME I Rep #: [id number] : 1960 56 From: Mj Ratliff MD Attending Dr: Irineo Rosario MD Status: DIS JUDITH Ordering Dr: Steve Iglesias Date: 06/26/17 Location: [facility] Sex: F C Admitted: 06/25/17 Test Reason : AM Blood Pressure : / mmHG Vent. Rate : 094 BPM Atrial Rate : 094 BPM P-R Int : 126 ms QRS Dur : 080 ms QT Int : 376 ms P-R-T Axes : 036 083 043 degrees QTc Int : 470 ms Sinus rhythm with Premature atrial complexes Otherwise normal ECG When compared with ECG of 26-JUN-2017 18:01, MANUAL COMPARISON REQUIRED, DATA IS UNCONFIRMED Confirmed by MAYRA LEDESMA, MJ ([id number]), assistant film editor LISA ETIENNE ([id number]) on 06/29/2017 4:15:38 PM Referred By: MARCELA Confirmed By:MJ RATLIFF MD 06/29/17 1615 Date jM Ratliff MD CC: LONI Iglesias; Lizz Alvarez MD Signed DISCHARGE SUMMARY Observed: 06/27/2017 Status: F Source: [place] 5:01 PM [facility], [facility] HOSPITAL REPOSITORY [facility] Medical Records Department [address] [place] [address] Discharge Summary 06/27/17 1628 MR#: [id number] Acct: [id number] Name: DARRIUS GUILLAUME I Rep #: [id number] : 1960 56 From: Steve IVEY PCP: Gregory LEDESMA,Lizz Status: DIS JUDITH Y Location: [place] [id number] <Steve Iglesias - Last Filed: 06/27/17 16:28> Discharge Date and Diagnosis Date of Admission: 06/25/17 Date of Discharge: 06/27/17 - Primary Discharge Diagnosis Chest pain - musculoskeletal Sinus tachycardia 2/2 levothyroxine Hypothyroidism with suppressed TSH 2/2 levothyroxine Obesity Generalized anxiety disorder 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 RAD/Chest 1 View (Portable) IMPRESSION: No active pulmonary disease. Operations: None Procedures: 2-D Echocardiogram, Stress test Summary of Care Provided: Physical exam on day of discharge: General: Resting comfortably NAD Psych: A/Ox3 normal affect HEENT: PEARRLA AT NC Neck: Supple NT CV: RRR no m/t/r/g/h Resp: CTA Abd: [id number] Soft NT no guarding or rigidity Ext: DP2+= no edema Skin: W/D normal turgor Lymph/Heme: No active bleeding or adenopathy Neuro: CN2-12 intact Hospital course: The patient is a 56 year old F who presents to the emergency room with chest pain with shortness of breath on exertion ongoing for 3 days described as a heaviness as retrosternal with radiation to the right side of the neck. Patient had a history of type I plasminogen activator inhibitor deficiency you who is on Coumadin. Her INR was subtherapeutic and she was tachycardic in the ER so CTA was done in the ER which was negative for PE. Lovenox bridge was provided. Patient also had a history of hypothyroidism, migraine with aura which she felt that she was experiencing with lightheadedness and diplopia and bilateral headache. She had a negative troponin and negative EKG. She is admitted for chest pain rule out. She underwent a stress test which was negative. She continued to have ongoing intermittent chest pain, and demonstrated episodes of sinus tachycardia especially with exertion. An echocardiogram was done which had mild LVH, EF 65%, stage 1 diastolic dysfxn. Her TSH was checked and found to be suppressed with an elevated T4. She is not supposed to be on a suppressive dose. Her levothyroxine was decreased. Also noted that she was taking phentermine for weight loss which we advised her to stop taking at this time. Patient was recently started on bupropion for seasonal depression as well which could be contributing to a combined stimulant effect with the phentermine and excessive thyroxine. I did not advise changing the bupropion at this time. Advised to have close follow-up with her PCP given the concerns for her multiple medication interactions and her ongoing intermittent tachycardia. INR was 2 at the time of discharge, advised her to have a repeat in 3 days and to continue her normal home dose of warfarin. She was given Tylenol and Topamax for her migraine while here. She was discharged home in stable condition. This patient was seen by Steve Iglesias PA-C under the supervision of Doctor Rosario. [] Discharge Diet: Low fat/ Low Cholesterol, 4000 mg Sodium Diet Discharge Activity: Return to Normal Activity Home Medications: Medications to take at Discharge Warfarin [Coumadin] 6 mg PO MOWEFR 04/13/13 Bupropion HCl [Wellbutrin Xl] 150 mg PO DAILY 06/25/17 Cholecalciferol (Vitamin D3) [Vitamin D3] 2,000 unit PO DAILY 06/25/17 Cyclobenzaprine [Flexeril] 10 mg PO QHS 06/25/17 Furosemide [Lasix] 20 mg PO DAILY PRN 06/25/17 Venlafaxine HCl [Venlafaxine HCl ER] 150 mg PO DAILY 06/25/17 Warfarin [Coumadin] 3 mg PO SUTUTHSA 06/25/17 Aspirin E.C. [Ecotrin] 81 mg PO DAILY@0800 tablet 06/27/17 Levothyroxine [Synthroid] 137 mcg PO DAILY@0600 #30 tab 06/27/17 Following Prescrptions Were Given to Patient: Levothyroxine [Synthroid] 137 mcg PO DAILY@0600 #30 tab Primary Care Physician: Lizz Alvarez MD [Primary Care Provider] - Please follow up with your Primary Care Physician in: 1-2 weeks Patient Instructions: Cardiac Nuclear Imaging (Nuclear Stress Test) Disposition: Home Minutes spent on discharge:: 35 Patient Condition:: Stable Meaningful Use Info Meaningful Use Diagnoses (Choose all that apply): None applicable <Irineo Rosario - Last Filed: 06/27/17 17:00> Discharge Date and Diagnosis - Secondary Discharge Diagnosis Chronic Problems Generalized anxiety disorder (Chronic) Hypothyroid (Chronic) Migraine (Chronic) Fibromyalgia (Chronic) Osteoarthritis (Chronic) 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 Patient was placed on a monitored bed underwent CT of the chest to rule out PE negative study. Patient had serial cardiac enzymes as well as negative nuclear stress test to rule out myocardial ischemia was felt patient chest pain was secondary to musculoskeletal pain. Patient has history of hypothyroidism and was on levothyroxine however her TSH was undetectable her levothyroxine dose was therefore adjusted prior to discharge Patient was seen and examined by myself on the day of discharge her discharge instructions as well as med reconciliation reviewed conjunction with Steve Iglesias. Hospital course as documented above Total time spent on discharge process 35 minutes Code Visit OBSV E AND M: [id number] Observation care discharge 06/27/17 1641 <Electronically signed by Steve IVEY> Date Steve IVEY 06/27/17 1701<Electronically signed by Irineo Rosario MD> Cosigner Signature (if applicable): Date Irineo Rosario MD CC: LONI Iglesias; Irineo Rosario MD; Lizz Alvarez MD Signed 12 LEAD ELECTROCARDIOGRAM Observed: 06/27/2017 Status: F Source: [facility] 3:18 PM [facility], [facility] HOSPITAL REPOSITORY [facility] Cardiovascular Services [address] [place] [address] 12 Lead EKG 06/25/17 1436 MR#: [id number] Acct: [id number] Name: DARRIUS GUILLAUME I Rep #: [id number] : 1960 56 From: Mj Ratliff MD Attending Dr: Irineo Rosario MD Status: DIS JUDITH Ordering Dr: Lori Paul MD Date: 06/25/17 Location: [facility] Sex: F C Admitted: 06/25/17 Test Reason : CHEST HEAVINESS Blood Pressure : / mmHG Vent. Rate : 106 BPM Atrial Rate : 106 BPM P-R Int : 134 ms QRS Dur : 080 ms QT Int : 350 ms P-R-T Axes : 048 120 051 degrees QTc Int : 464 ms Sinus tachycardia Otherwise normal ECG Confirmed by MJ RATLIFF MD ([id number]), assistant film editor LISA ETIENNE ([id number]) on 06/27/2017 3:17:58 PM Referred By: Confirmed By:MJ RATLIFF MD 06/27/17 1518 Date Mj Ratliff MD CC: Lori Paul MD; Lizz Alvarez MD Signed ECHOCARDIOGRAM COMPLETE Observed: 06/27/2017 Status: F Source: [place] 3:08 PM [facility], [facility] HOSPITAL REPOSITORY [facility] Cardiovascular Services [address] [place] [address] Echo Complete 06/27/17 1251 MR#: [id number] Acct: [id number] Name: DARRIUS GUILLAUME I Rep #: [id number] : 1960 56 From: Mj Ratliff MD Attending Dr: Irineo Rosario MD Status: DIS JUDITH Ordering Dr: Steve Iglesias Date: 06/27/17 Location: [facility] Sex: F C Admitted: 06/25/17 Reason For Study: Arrhythmia Procedure This was a 2D Doppler, Color Flow transthoracic echocardiogram. Exam performed portable in patient room. Left Ventricle Normal LV size. Mild concentric left ventricular hypertrophy. Left ventricular systolic function is normal. The estimated ejection fraction is 65 %. Transmitral diastolic flow velocities suggest mild (stage 1) diastolic dysfunction (reversed pattern). No regional wall motion abnormalities noted. Right Ventricle Normal RV size. Normal systolic function. Atria Normal left atrium. Normal right atrium. Mitral Valve Normal mitral valve. Tricuspid Valve Normal tricuspid valve. Aortic Valve The aortic valve is not well visualized. Pulmonic Valve The pulmonic valve is not well visualized. Great Vessels Normal aortic root. The pulmonary artery is normal size. Normal inferior vena cava. Pericardium/Pleural No pericardial effusion. Medication 22 gauge I.V. with prn adaptor inserted into right arm. Definity0.3ml given slow IV push to enhance endocardial definition. MMode/2D Measurements AND Calculations LVIDd: 3.7 cm IVSd: 1.3 cm Ao root diam: 2.9 cm LVIDs: 2.2 cm LVPWd: 1.2 cm LA dimension: 3.5 cm FS: 38.9 % LAV(MOD-bp): 32.3 ml LAV(MOD-bp) Indexed: 16.0 ml/m2 LA A4 area: 14.0 cm2 RA A4 area: 7.1 cm2 LAV(MOD-sp2): 28.3 ml LAV(MOD-sp4): 39.4 ml Doppler Measurements AND Calculations MV E max nancy: 69.8 cm/sec Lat Peak E' Nancy: 8.9 cm/sec Med Peak E' Nancy: 4.8 cm/sec MV A max nancy: 89.8 cm/sec E/E' lat: 7.8 E/E' med: 14.6 MV E/A: 0.78 Ao V2 max: 138.5 cm/sec LV V1 max: 104.5 cm/sec PA V2 max: 110.4 cm/sec Ao max P.7 mmHg LV V1 max P.4 mmHg Interpretation Summary Normal LV size. Mild concentric left ventricular hypertrophy. Left ventricular systolic function is normal. The estimated ejection fraction is 65 %. Contrast injection was performed. Ordering Physician: Steve Iglesias Referring Physician: MD Lizz Alvarez Performed By: Za Cheema RDCS 06/27/17 1507 Date Mj Ratliff MD CC: LONI Iglesias; Lizz Alvarez MD Date Dictated: 06/27/17 1251 Date Transcribed: 06/27/17 1507 Cae Engineer: Signed DISCHARGE INSTRUCTION Observed: 06/27/2017 Status: F Source: [place] 11:52 AM [facility] REPOSITORY [facility] Medical Records Department [address] [place] [address] Instructions for Home/Discharge Instructions 06/27/17 1150 MR#: [id number] Acct: [id number] Name: DARRIUS GUILLAUME I Rep #: [id number] : 1960 56 From: Steve IVEY PCP: Lizz Alvarez MD Status: ADM JUDITH - Discharge Diagnoses Current Active Problems: Current Active and Chronic Problems Chest pain, exertional (Acute) You will use the following diet at home:: Cardiac Your food should be the consistency of: Regular Your liquids should be the consistency of: Regular/Thin Discharge Activity: Return to Normal Activity Instructions: Cardiac Nuclear Imaging (Nuclear Stress Test) Allergies/Adverse Reactions: Allergies morphine Allergy (Verified 06/25/17 14:30) Rash oxycodone HCl [From OxyContin] Allergy (Verified 06/25/17 14:30) Vomiting Penicillins [PCN] Allergy (Verified 06/25/17 14:30) Swelling [employer] SWEETENER Allergy (Uncoded 06/25/17 14:30) Swelling Medications to take at Discharge Warfarin [Coumadin] 6 mg PO MOWEFR 04/13/13 Bupropion HCl [Wellbutrin Xl] 150 mg PO DAILY 06/25/17 Cholecalciferol (Vitamin D3) [Vitamin D3] 2,000 unit PO DAILY 06/25/17 Cyclobenzaprine [Flexeril] 10 mg PO QHS 06/25/17 Furosemide [Lasix] 20 mg PO DAILY PRN 06/25/17 Venlafaxine HCl [Venlafaxine HCl ER] 150 mg PO DAILY 06/25/17 Warfarin [Coumadin] 3 mg PO SUTUTHSA 06/25/17 Aspirin E.C. [Ecotrin] 81 mg PO DAILY@0800 tablet 06/27/17 Levothyroxine [Synthroid] 137 mcg PO DAILY@0600 #30 tab 06/27/17 The following prescriptions were given: Levothyroxine [Synthroid] 137 mcg PO DAILY@0600 #30 tab Primary Care Physician: Lizz Alvarez MD [Primary Care Provider] - Please follow up with your Primary Care Physician in: 1-2 weeks Proposed Discharge Date: 06/27/17 06/27/17 1152 <Electronically signed by Steve IVEY> Date Steve IVEY CC: Lizz Alvarez MD STRESS REPORT Observed: 06/27/2017 Status: F Source: [place] 10:17 AM [facility] REPOSITORY [facility] Cardiovascular Services [address] [place] [address] MR#: [id number] Acct: [id number] Name: DARRIUS GUILLAUME I Rep #: [id number] : 1960 56 From: Mj Ratliff MD Primary Care: Gregory LEDESMA,Lizz Status: ADM JUDITH Ordering Dr: Sex: F C Stress Test Report Exercise myocardial perfusion stress test. 56-year-old lady with a history of chest pain. Stress protocol: Resting EKG demonstrates sinus tachycardia with a rate of 107 bpm. Resting blood pressure is 130/90 mmHg. The patient exercised according to the regular Maynor protocol for total duration of 3 minutes. The maximum heart rate attained was 171 bpm which was 104% of the maximum predicted heart rate the maximum workload attained was 4.6 metabolic equivalents. At rest there were no ST or T-wave changes noted suggest ischemia peak exercise upsloping ST changes only were noted with no meet the criteria for ischemia. No clinical angina was noted. The test was terminated due to fatigue and shortness of breath. The resting blood pressure was 130/90 mmHg with a peak blood pressure 144/52 mmHg. Rate pressure product was 24,300. Myocardial perfusion protocol: 14.2 mCi of technetium 99m sestamibi was injected at rest. The patient exercised according to regular Maynor protocol for 3 minutes and at peak exercise 44.6 mCi of technetium 99m sestamibi was injected. Stress images were obtained. Stress and rest images were reconstructed and compared in the short axis vertical long and horizontal long axis. Gated images were also obtained. Perfusion SPECT analysis: Review of the stress images demonstrate normal uptake of tracer noted in all areas of the myocardium. The resting images similarly demonstrate normal uptake of tracer noted in all areas of the myocardium. No areas of reversibility are noted suggest ischemia. No previous infarct is noted. Gated SPECT analysis: The gated ejection fraction is 77%. Conclusion: Normal exercise myocardial perfusion stress test at a low workload. Preserved ejection fraction. 06/27/17 1017 <Electronically signed by Mj Ratliff MD> Date Mj Ratliff MD CC: Lizz Alvarez MD Date Dictated: 06/27/17 1013 Date Transcribed: 06/27/17 1013 Cae Engineer: CO Signed CBC W/DIFF, AUTOMATED Collected: 06/27/2017 Status: F Source: [facility] 6:00 AM [facility] REPOSITORY TYPE CODE TESTS RESULT OUT OF RANGE REFERENCE UNITS LAB L100.1000 4.4-11.0 K/mm3 Normal WBC 5.7 LAB L100.1200 4.2-5.4 M/mm3 Normal RBC 4.60 LAB L100.1300 12.0-15.0 g/dl Normal HGB 13.5 LAB L100.1400 37-47 % Normal HCT 41.6 LAB L100.1500 81-99 fL Normal MCV 90.4 LAB L100.1600 27.0-32.0 pg Normal MCH 29.3 LAB L100.1700 32-36 g/gl Normal MCHC 32.5 LAB L100.1810 11.6-14.6 % Normal RDW CV 12.2 LAB L100.1820 35.1-43.9 fl Normal RDW SD 39.8 LAB L100.1900 150-450 K/mm3 Normal PLT 180 LAB L100.2000 6.2-12.0 fl Normal MPV 9.3 LAB L100.2100 47-70 % Low NEUT% 40.1 LAB L100.2200 19-41 % High LY% 49.9 LAB L100.2300 0-10 % Normal MONO% 6.1 LAB L100.2400 0-5 % Normal EO% 3.3 LAB L100.2500 0-1 % Normal BASO% 0.4 LAB L100.2550 0.0-0.9 % Normal IM GRAN % 0.200 Result Comment: IG% - Immature Granulocytes (promyelocytes, myelocytes and metamyelocytes) > 1% indicates that a LEFT SHIFT is Present. LAB L100.2620 2.0-7.7 X10 3/uL Normal Absolute Neut 2.3 LAB L100.2720 0.83-4.51 X10 3/ul Normal Absolute Lymph 2.85 Performed By: #### L100.0100 #### [facility] [place], [address] PROTHROMBIN TIME W/INR Collected: 06/27/2017 Status: F Source: [place] 6:00 AM [facility] REPOSITORY TYPE CODE TESTS RESULT OUT OF RANGE REFERENCE UNITS LAB L300.4150 11.7-14.9 SECONDS High PROTIME 22.4 LAB L300.4200 Normal INR 2.0 Performed By: #### L300.3900, L300.4310 #### [facility] [address] [place], [address] PARTIAL THROMBOPLAST Collected: 06/27/2017 Status: F Source: [place] TIME 6:00 AM [facility] REPOSITORY TYPE CODE TESTS RESULT OUT OF REFERENCE UNITS RANGE LAB L300.4310 24.1-36.2 Seconds High alert PTT 114.9 Result Comment: CRITICAL VALUE VERIFIED. CALLED TO EMILYRN PCU 06/27/17 0634 Jillian Hines. RESULTS READ BACK BY SAME . Performed By: #### L300.3900, L300.4310 #### [facility] [address] [place], [address] BASIC METABOLIC Collected: 06/27/2017 Status: F Source: [place] PROFILE (BMP) 6:00 AM [facility] REPOSITORY TYPE CODE TESTS RESULT OUT OF RANGE REFERENCE UNITS LAB L501.0100 74-106 mg/dL Normal GLU 98 Result Comment: Please note revised GLUCOSE reference range effective 2017. LAB L501.1000 7-18 mg/dL Normal BUN 12 LAB L501.1100 0.55-1.02 mg/dL Normal CREAT,SERUM 0.78 Result Comment: The validity of the calculated GFR AND GFRAA in patients over 70 years has not been determined. Clinical correlation is essential. LAB L501.1110 >60 mL/min Normal EST GFR 81 Result Comment: Non- GFR Calc LAB L501.1115 >60 mL/min Normal EST GFR - AA 98 Result Comment: GFR Calc LAB L501.1255 ml/min Normal Estimated CRCL 68.72 LAB L501.1300 10-20 RATIO Normal BUN/CRE 15.4 LAB L501.2200 8.5-10 mg/dL Normal .1 CA 8.7 LAB L501.5300 136-14 mmol/L Normal 5 NA 142 LAB L501.5600 3.5-5. mmol/L Normal 1 K 4.1 LAB L501.5900 98-107 mmol/L Normal CL 106 LAB L501.6100 21.0-3 mmol/L Normal 2.0 CO2 28.0 LAB L501.6200 5-15 Normal GAP 8 Performed By: #### L500.2500 #### [facility] [address] [place], [address] MAGNESIUM Collected: 06/26/2017 Status: F Source: [facility] 6:10 PM [facility] REPOSITORY TYPE CODE TESTS RESULT OUT OF RANGE REFERENCE UNITS LAB L501.5200 1.6-2.6 mg/dL Normal MG 1.9 Result Comment: Please note revised Magnesium reference range effective 2017. Performed By: #### L501.5200 #### [facility] [address] [place], [address] PROTHROMBIN TIME W/INR Collected: 06/26/2017 Status: F Source: [facility] 6:30 AM [facility] REPOSITORY TYPE CODE TESTS RESULT OUT OF RANGE REFERENCE UNITS LAB L300.4150 11.7-14.9 SECONDS High PROTIME 19.7 LAB L300.4200 Normal INR 1.7 Performed By: #### L300.3900 #### [facility] [address] [place], [address] TROPONIN-I Collected: 06/26/2017 Status: F Source: [facility] 6:30 AM [facility] REPOSITORY Order Comment: 'TROP' Serial specimen #1, #2, #3, or #4: 4 TYPE CODE TESTS RESULT OUT OF RANGE REFERENCE UNITS LAB L501.4010 <0.06 ng/mL Normal < 0.02 TROPONIN-I Result Comment: TROPONIN-I EXPECTED VALUES <0.05 NEGATIVE 0.06 - 0.59 AT RISK OF MA > OR = 0.60 SUGGEST MA Performed By: #### L501.4010 #### [facility] [address] [place], [address] LIPID PROFILE Collected: 06/26/2017 Status: F Source: [place] 6:30 AM [facility] REPOSITORY TYPE CODE TESTS RESULT OUT OF RANGE REFERENCE UNITS LAB L501.4900 200 mg/dL Normal CHOL 168 Result Comment: <200 mg/dL Desirable 200-240 mg/dL Borderline >240 mg/dL High Risk LAB L501.5000 mg/dL Normal TRIG 158 Result Comment: The drugs N-Acetylcysteine and Metamizole may falsely depress this assay. Serum Triglycerides Reference Interval Normal <150 mg/dL Borderline high 150 - 199 mg/dL High 200 - 499 mg/dL Very High > or = 500 mg/dL LAB L501.6400 mg/dL Normal HDL 40 Result Comment: The drugs N-Acetylcysteine and Metamizole may falsely depress this assay. Reference Range HDL <40 mg/dL Low HDL Cholesterol HDL >or= 60 mg/dL High HDL Cholesterol LAB L501.6500 0-130 mg/dL Normal LDL 96 LAB L501.6600 5-40 mg/dL Normal VLDL 32 Performed By: #### L500.4100, L501.9520, L506.0400 #### [facility] [address] [place], [place], [address] THYROID STIM HORMONE Collected: 06/26/2017 Status: F Source: [place] (TSH) 6:30 AM [facility] REPOSITORY TYPE CODE TESTS RESULT OUT OF RANGE REFERENCE UNITS LAB L501.9520 0.358-3.74 uIU/mL Low TSH < 0.01 Performed By: #### L500.4100, L501.9520, L506.0400 #### [facility] [address] [place], [address] T4 FREE DIRECT Collected: 06/26/2017 Status: F Source: [place] 6:30 AM [facility] REPOSITORY TYPE CODE TESTS RESULT OUT OF REFERENCE UNITS RANGE LAB L506.0400 0.76-1.46 ng/dL High T4 FREE 1.50 DIRECT Performed By: #### L500.4100, L501.9520, L506.0400 #### [facility] [address] [place], [address] TROPONIN-I Collected: 06/25/2017 Status: F Source: [place] 11:32 PM [facility] REPOSITORY Order Comment: 'TROP' Serial specimen #1, #2, #3, or #4: 3 TYPE CODE TESTS RESULT OUT OF RANGE REFERENCE UNITS LAB L501.4010 <0.06 ng/mL Normal < 0.02 TROPONIN-I Result Comment: TROPONIN-I EXPECTED VALUES <0.05 NEGATIVE 0.06 - 0.59 AT RISK OF MA > OR = 0.60 SUGGEST MA Performed By: #### L501.4010 #### [facility] [address] [place], [place], [address] MAGNESIUM Collected: 06/25/2017 Status: F Source: [place] 7:30 PM [facility] REPOSITORY TYPE CODE TESTS RESULT OUT OF RANGE REFERENCE UNITS LAB L501.5200 1.6-2.6 mg/dL Normal MG 2.0 Result Comment: Please note revised Magnesium reference range effective 2017. Performed By: #### L501.5200 #### [facility] [address] [place], [address] TROPONIN-I Collected: 06/25/2017 Status: F Source: [place] 7:30 PM [facility] REPOSITORY Order Comment: 'TROP' Serial specimen #1, #2, #3, or #4: 2 TYPE CODE TESTS RESULT OUT OF RANGE REFERENCE UNITS LAB L501.4010 <0.06 ng/mL Normal < 0.02 TROPONIN-I Result Comment: TROPONIN-I EXPECTED VALUES <0.05 NEGATIVE 0.06 - 0.59 AT RISK OF MA > OR = 0.60 SUGGEST MA Performed By: #### L501.4010 #### [facility] [address] [place], [place], [address] BNP,B-TYPE NATRIURETIC Collected: 06/25/2017 Status: F Source: [place] PEPTIDE 7:30 PM [facility] REPOSITORY TYPE CODE TESTS RESULT OUT OF RANGE REFERENCE UNITS LAB L503.6620 0-100 pg/mL Normal B-TYPE 5.3 RENETTA PEP Performed By: #### L503.6620 #### [facility] [address] [place], [place], [address] HISTORY AND PHYSICAL Observed: 06/25/2017 Status: F Source: [facility] EXAM 6:58 PM [facility] REPOSITORY [facility] Medical Records Department [address] [place] [address] History and Physical 06/25/17 1840 MR#: [id number] Acct: [id number] Name: DARRIUS GUILLAUME I Rep #: [id number] : 1960 56 From: River Matamoros MD PCP: Lizz Alvarez MD Status: REG ER Y Location: ED Problem List (1) Chest pain, exertional Status: Acute (2) Generalized anxiety disorder Status: Chronic (3) Hypothyroid Status: Chronic (4) Migraine Status: Chronic (5) Fibromyalgia Status: Chronic (6) Osteoarthritis Status: Chronic (7) Type 1 plasminogen activator inhibitor deficiency Status: Chronic (8) Cervical nerve root impingement Status: Acute (9) Insomnia Status: Acute (10) Panic attacks Status: Acute (11) Obesity (BMI 35.0-39.9 without comorbidity) Status: Chronic History of Present Illness Date of Admission: 06/25/17 Chief Complaint: Chest pain for 3 days The patient is a 56 year old F with multiple comorbidities including 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 Patient feels chest heaviness retrosternal, with radiation to the right side of neck on mild exertion like walking within home or the parking lot. Patient also gets headache, diplopia because of her history of migraine, fibromyalgia and generalized anxiety disorder. She had a stress test and cardiac cath about 10 years ago and were normal. In ER, initial workup was negative. INR subtherapeutic 1.6. EKG shows sinus tachycardia at 106 bpm with T inversion in V1 to V2. Previous EKG in May 2015 similar T inversion. 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) Obesity (BMI 35.0-39.9 without comorbidity) (Chronic) Allergies morphine Allergy (Verified 06/25/17 14:30) Rash oxycodone HCl [From OxyContin] Allergy (Verified 06/25/17 14:30) Vomiting Penicillins [PCN] Allergy (Verified 06/25/17 14:30) Swelling [employer] SWE[employer] Allergy (Uncoded 06/25/17 14:30) Swelling Home Medications: Ambulatory Orders Medication Instructions Recorded Levothyroxine [Synthroid] 150 mcg PO DAILY 04/13/13 Warfarin [Coumadin] 6 mg PO MOWEFR 04/13/13 Bupropion HCl [Wellbutrin Xl] 150 mg PO DAILY 06/25/17 Surgical History: no surgical history Psychiatric History: Anxiety [employer] History: No pertinent [employer] history Smoking Status: Never smoker - *Family History Paternal History Items: No pertinent history Review of Systems Constitutional: Denies: Chills, Fever, Weight Change HEENT: Denies: Head Aches, Sinus Congestion, Sinus Drainage Cardiovascular: Reports: Chest Pressure, Edema - Due to varicose vein in both lower extremities and wears MERCEDES hose. Denies: Chest Pain, Palpitations Respiratory: Reports: Shortness of breath upon exertion. Denies: Cough, Shortness of breath at rest, Sputum production Gastrointestinal: Denies: Abdominal Pain, Nausea, Vomiting Genitourinary: Denies: Dysuria Musculoskeletal: Denies: Joint Pain, Joint Tenderness Skin: Denies: Rash, Wounds Neurological: Denies: Numbness, Tingling, Focal weakness Psychiatric: Denies: Anxiety, Depression, Homicidal Ideations, Suicidal Ideations Hematologic/ Lymphatic: Denies: Easy Bruising, Easy Bleeding VTE Information - Inpt Only VTE Present on Admission: No VTE Mechan Device Prophylaxis: Knee High MERCEDES Hose VTE Pharm Prophylaxis ordered?: Yes Patient Problems: Active and Suspected Problems Chest pain, exertional (Acute) - Physical Exam General: Alert, Oriented x3, Cooperative HEENT: Atraumatic, PERRLA, EOMI, Normocephalic Neck: Supple, No JVD, Negative Carotid Bruits Lungs: Clear to auscultation, Normal air movement, No rhonchi, No wheeze, No rales Cardiovascular: Regular Rhythm, Normal S1, Normal S2, No murmurs, Tachycardic Abdomen: Bowel Sounds Present, Soft, Non Tender, Non-Distended Extremities: Capillary Refill Less than 3 Seconds, Edema Skin: No rashes, No breakdown Musculoskeletal: No Tenderness to Palpation of Joints or Extremities Neurological: Cranial nerves II-XII grossly intact Psych/Mental Status: Normal Affect, Appropriate Vital Signs Temp Pulse Resp BP Pulse Ox 98.9 F 87 18 131/74 H 99 06/25/17 14:31 06/25/17 18:10 06/25/17 18:10 06/25/17 18:10 06/25/17 18:10 Oxygen Flow Rate (L/min) 1 Oxygen Delivery Method Nasal Cannula Weight: 219 lb 9.286 oz Body Mass Index (BMI) 37.7 Laboratory Tests Past 24 Hrs WBC RBC Hgb Hct MCV MCH MCHC RDW RDW Differential Plt Count MPV Immature Gran % (Auto) Neut % (Auto) Assessment/Plan Active and Suspected Problems Chest pain, exertional (Acute) The patient is a 56 year old F with multiple comorbidities including 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 Patient feels chest heaviness retrosternal, with radiation to the right side of neck on mild exertion like walking within home or the parking lot. Patient also gets headache, diplopia because of her history of migraine, fibromyalgia and generalized anxiety disorder. She had a stress test and cardiac cath about 10 years ago and were normal. In ER, initial workup was negative. INR subtherapeutic 1.6. EKG shows sinus tachycardia at 106 bpm with T inversion in V1 to V2. Previous EKG in May 2015 similar T inversion. First troponin negative. 1. Exertional chest pain with high suspicion of unstable angina: Patient is being admitted in the PCU. On ACS protocol with serial cardiac enzymes. On nitro ointment as needed, baby aspirin. Patient is already on Coumadin for history of DVT with hereditary hypercoagulable disorder. If troponin comes positive or chest pain continues, can consult cardiology. 2. 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 Check INR daily and if INR is still subtherapeutic less than 1.8, supplement with Lovenox. Next CBC tomorrow a.m. 3. hypothyroidism: Continue Synthroid. Free T4 and TSH tomorrow a.m. Other multiple comorbidities include migraine headache possible ocular migraine, fibromyalgia, generalized anxiety disorder/panic attack, insomnia cervical root impingement and osteoarthritis and varicose vein: Home medication reconciliation done. Hold Adipex-P. Clinical Impression(s) from Imaging Studies Chest CTA 06/25/17 15:08 IMPRESSION: No CTA demonstrated pulmonary embolism or arterial dissection. Chest X-Ray 06/25/17 15:25 IMPRESSION: No active pulmonary disease. Laboratory Results 06/25/17 15:23: WBC 4.8, RBC 4.20, Hgb 12.2, Hct 38.0, MCV 90.5, MCH 29.0, MCHC 32.1, RDW 12.2, RDW Differential 39.8, Plt Count 159, MPV 9.0, Immature Gran % (Auto) 0.200, Neut % (Auto) 58.5, Lymph % (Auto) 32.1, Perry % (Auto) 6.1, Eos % (Auto) 2.9, Baso % (Auto) 0.2, Absolute Neuts (auto) 2.8, Absolute Lymphs (auto) 1.53, Total Counted Not Reportable 06/25/17 15:23: PT Cancelled, INR Cancelled 06/25/17 15:23: Sodium 141, Potassium 4.4, Chloride 107, Carbon Dioxide 28.0, Anion Gap 6, BUN 14, Creatinine 0.76, Estim Creat Clear Calc 70.52, Est GFR (MDRD) Af Amer 100, Est GFR (MDRD) Non-Af 83, BUN/Creatinine Ratio 18.3, Glucose 78, Calcium 8.9, Troponin I < 0.02 06/25/17 15:50: PT 18.8 H, INR 1.6 Code Visit OBSV E AND M: [id number] Initial observation care L3 06/25/17 [id number] <Electronically signed by Rievr Matamoros MD> Date River Matamoros MD Cosigner Signature: Date (if applicable) CC: Lizz Alvarez MD; River Matamoros MD Signed EMERGENCY DEPARTMENT Observed: 06/25/2017 Status: F Source: [facility] SUMMARY 6:23 PM [facility] REPOSIT[facility] Medical Records Department [address] [place] [address] Emergency Department Summary 06/25/17 1516 MR#: [id number] Acct: [id number] Name: DARRIUS GUILLAUME I Rep #: [id number] : 1960 56 From: Lori Paul MD PCP: Lizz Alvarez MD Status: REG ER - ER Visit Summary Date of Service: 06/25/17 Chief Complaint: Chest heaviness History of Present Illness: The patient is a 56 F presents with intermittent chest heaviness for the past 2 days. She states this is worsened with exertion. She also notes shortness of breath with exertion. She has had intermittent episodes of diaphoresis. She denies nausea or vomiting. She states she has a history of PE. She has a clotting disorder and is on Coumadin chronically. She states her INR has been subtherapeutic recently. She has a history of hypercholesterolemia and unknown family history of heart disease. Physical Examination: Vitals are stable. Patient is afebrile. Alert no acute distress. HEENT exam is unremarkable. Neck is supple. Lungs are clear and equal bilaterally. Heart is regular and tachycardic Abdomen is soft nontender nondistended. Extremities are symmetric edema Skin is warm and dry. No focal neurologic deficit. Remainder of exam is unremarkable. Emergency Department Course and Treatment: EKG is sinus tachycardia rate of 106. She was given aspirin on arrival. Chest x-ray shows no acute process. CBC, chemistries unremarkable. INR is 1.6. Troponin is less than 0.02. CTA chest shows no evidence of PE or dissection. On reevaluation, patient is chest pain-free. Due to her exertional symptoms, I feel she should be admitted for further cardiac workup. Discussed with the hospitalist. Disposition: Observation Impression: Chest pain This note was generated with ProQuo dictation software. It may contain incorrect words, spelling, and punctuation that were not noted in review of the chart prior to signing ED Disposition - Plan for ED Patient: Chief Complaint: Shortness of Breath Referrals: Lizz Alvarez MD [Primary Care Provider] - What to do if you have Problems For any increased pain, shortness of breath, bleeding, nausea or vomiting, chest pain, or any unexpected problems, contact your Primary Care Provider. Call [facility] ([phone]) or report to the closest Emergency Room. Call 911 if necessary. 06/25/17 1823 <Electronically signed by Lori Paul MD> Date Lori Paul MD Cosigner Signature (If Indicated): Date CC: Lizz Alvarez MD PROTHROMBIN TIME W/INR Collected: 06/25/2017 Status: F Source: [facility] 3:50 PM [facility] REPOSITORY Order Comment: REDRAW. PREVIOUS SPECIMEN WAS REJECTED FOR TESTING DUE TO HEMOLYSIS. SPECIMEN WAS DISCARDED. 06/25/17 1551 Lillie Long. TYPE CODE TESTS RESULT OUT OF RANGE REFERENCE UNITS LAB L300.4150 11.7-14.9 SECONDS High PROTIME 18.8 LAB L300.4200 Normal INR 1.6 Performed By: #### L300.3900 #### [facility] [address] [place], [address] CBC W/DIFF, AUTOMATED Collected: 06/25/2017 Status: F Source: [facility] 3:23 PM [facility] REPOS[facility] TYPE CODE TESTS RESULT OUT OF RANGE REFERENCE UNITS LAB L100.1000 4.4-11.0 K/mm3 Normal WBC 4.8 LAB L100.1200 4.2-5.4 M/mm3 Normal RBC 4.20 LAB L100.1300 12.0-15.0 g/dl Normal HGB 12.2 LAB L100.1400 37-47 % Normal HCT 38.0 LAB L100.1500 81-99 fL Normal MCV 90.5 LAB L100.1600 27.0-32.0 pg Normal MCH 29.0 LAB L100.1700 32-36 g/gl Normal MCHC 32.1 LAB L100.1810 11.6-14.6 % Normal RDW CV 12.2 LAB L100.1820 35.1-43.9 fl Normal RDW SD 39.8 LAB L100.1900 150-450 K/mm3 Normal PLT 159 LAB L100.2000 6.2-12.0 fl Normal MPV 9.0 LAB L100.2100 47-70 % Normal NEUT% 58.5 LAB L100.2200 19-41 % Normal LY% 32.1 LAB L100.2300 0-10 % Normal MONO% 6.1 LAB L100.2400 0-5 % Normal EO% 2.9 LAB L100.2500 0-1 % Normal BASO% 0.2 LAB L100.2550 0.0-0.9 % Normal IM GRAN % 0.200 Result Comment: IG% - Immature Granulocytes (promyelocytes, myelocytes and metamyelocytes) > 1% indicates that a LEFT SHIFT is Present. LAB L100.2620 2.0-7.7 X10 3/uL Normal Absolute Neut 2.8 LAB L100.2720 0.83-4.51 X10 3/ul Normal Absolute Lymph 1.53 Performed By: #### L100.0100 #### [facility] [address] [place], [place], [address] BASIC METABOLIC Collected: 06/25/2017 Status: F Source: [facility] PROFILE (BMP) 3:23 PM [facility] REPOSITORY Order Comment: 'TROP' Serial specimen #1, #2, #3, or #4: 1 TYPE CODE TESTS RESULT OUT OF RANGE REFERENCE UNITS LAB L501.0100 74-106 mg/dL Normal GLU 78 Result Comment: Please note revised GLUCOSE reference range effective 2017. LAB L501.1000 7-18 mg/dL Normal BUN 14 LAB L501.1100 0.55-1.02 mg/dL Normal CREAT,SERUM 0.76 Result Comment: The validity of the calculated GFR AND GFRAA in patients over 70 years has not been determined. Clinical correlation is essential. LAB L501.1110 >60 mL/min Normal EST GFR 83 Result Comment: Non- GFR Calc LAB L501.1115 >60 mL/min Normal EST GFR - AA 100 Result Comment: GFR Calc LAB L501.1255 ml/min Normal Estimated CRCL 70.52 LAB L501.1300 10-20 RATIO Normal BUN/CRE 18.3 LAB L501.2200 8.5-10 mg/dL Normal .1 CA 8.9 LAB L501.5300 136-14 mmol/L Normal 5 NA 141 LAB L501.5600 3.5-5. mmol/L Normal 1 K 4.4 Result Comment: Slight Hemolysis, Result may be falsely increased. LAB L501.5900 98-107 mmol/L Normal CL 107 LAB L501.6100 21.0-32.0 mmol/L Normal CO2 28.0 LAB L501.6200 5-15 Normal 6 GAP Performed By: #### L500.2500, L501.4010 #### [facility] [address] [place], [address] TROPONIN-I Collected: 06/25/2017 Status: F Source: [facility] 3:23 PM [facility] Order Comment: 'TROP' Serial specimen #1, #2, #3, or #4: 1 TYPE CODE TESTS RESULT OUT OF RANGE REFERENCE UNITS LAB L501.4010 <0.06 ng/mL Normal < 0.02 TROPONIN-I Result Comment: TROPONIN-I EXPECTED VALUES <0.05 NEGATIVE 0.06 - 0.59 AT RISK OF MA > OR = 0.60 SUGGEST MA Performed By: #### L500.2500, L501.4010 #### [facility] [address] [place], [address] CHEST 1 VIEW Observed: 06/25/2017 Status: F Source: [facility] (PORTABLE) 3:09 PM [facility] RE[facility] Imaging Services [address] [place] [address] Chest 1 View (Portable) MR#: [id number] Acct: [id number] Name: BETZYJERRYDARRIUS Santana Rep #: [id number] : 1960 F 56 From: Wu Huynh MD PCP: Gregory LEDESMA,Lizz Status: REG ER Study: Chest 1 View (Portable) Date of Exam: 06/25/17 Exam# [id number] Ordering Dr: Lori Paul MD STUDY: X-RAY CHEST REASON FOR EXAM: Female, 56 years old. Chest heaviness and shortness of breath. TECHNIQUE: Single AP portable view of the chest. COMPARISON: 06/09/2015. FINDINGS: The lungs are clear and expanded. There is no demonstrated pleural abnormality. Normal size heart. Normal mediastinum and royer. Normal visualized pulmonary arteries. Normal visualized aortic arch and descending thoracic aorta. Normal visualized thoracic spine. Normal visualized ribs, clavicles, and shoulders. There is no demonstrated abnormality of the visualized soft tissue structures of the upper abdomen. RAD/Chest 1 View (Portable) IMPRESSION: No active pulmonary disease. Electronically Signed: Wu Huynh MD at 15:43 EST Tel , Service support , CC: Lori Paul MD; Lizz Alvarez MD Cae Engineer: Signed CTA CHEST W/WO Observed: 06/25/2017 Status: F Source: [facility] CONTRAST 3:09 PM [facility] Imaging Services [address] [place] [address] CTA Chest W/WO Contrast MR#: [id number] Acct: [id number] Name: DARRIUS GUILLAUME I Rep #: [id number] : 1960 F 56 From: Georgia Etienne MD PCP: Lizz Alvarez MD Status: REG ER Study: CTA Chest W/WO Contrast Date of Exam: 06/25/17 Exam# [id number] Ordering Dr: Lori Paul MD STUDY: CTA CHEST REASON FOR EXAM: Female, 56 years old. Chest heaviness and increased shortness of breath. RADIATION DOSAGE (If Supplied By Facility): CTDIvol = ( 12.93 ) mGy, DLP = ( 679.01 ) mGycm TECHNIQUE: The examination was performed with the intravenous administration of 100CC ml of Isovue 370 contrast material. Post-processing of the angiographic images was performed, with multiplanar reformation and 3D reconstruction. Individualized dose optimization techniques were used for this CT. COMPARISON: None. FINDINGS: Normal enhancement of the main pulmonary artery and right and left pulmonary arteries. Normal enhancement of the bilateral peripheral pulmonary arteries. There is no demonstrated pulmonary embolism. Normal thoracic aorta and visualized great vessels. There is no demonstrated aortic dissection. Normal heart and pericardium. Normal mediastinum. Normal hilar regions. Normal visualized trachea and bronchi. The lungs are well expanded. Normal pulmonary parenchyma. Normal pleura. Normal chest wall structures. There is mild multilevel thoracic spondylosis. There is a small hiatal hernia. There is a calcified gallstone. CT/CTA Chest W/WO Contrast IMPRESSION: No CTA demonstrated pulmonary embolism or arterial dissection. Electronically Signed: Georgia Etienne MD at 17:29 EST , Service support , CC: Lori Paul MD; Lizz Alvarez MD Cae Engineer: Signed PROGRESS Observed: 06/15/2017 Status: COMPLETED Source: [place] 11:25 AM [facility] REPOSITORY HNO ID: [id number] Author: Lizz Alvarez Service: (none) Author Type: Physician Type: Progress Notes Filed: 06/17/2017 10:34 AM Note Text: Chief Complaint Patient presents with: Weight Loss HPI Darrius Guillaume is a 56 year old female who presents here today for to discuss weight loss medication. Having difficulty losing weight; tried watching diet. Discussed diet, activity. She would like to try medication to assist in weight control. Past medical history, appointments, medications, allergies reviewed. 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, L4-5 - Irritable bowel syndrome - Myalgia and myositis, unspecified pain management: physical therapy, psychiatric care, epidural steroids, trigger point injections have failed - Other diseases of trachea and bronchus, not elsewhere classified - Other forms of migraine - Other specified acquired hypothyroidism - Other specified gastritis - Rosacea Previous Surgical History PAST SURGICAL HISTORY Procedure Laterality Date - BIOPSY BREAST needle, negative - CARDIAC DRUG STRESS TEST - DELIVERY ONLY , low cervical x 3 - COLONOSCOP W/ OR W/O [facility] SPEC 04/26/2013 Colonoscopy - COLONOSCOPY - DIAGNOSTIC 03/19 - ECHO - EGD W/O [facility] SPECIMEN W/BX 10/07/00 - EGD W/O [facility] SPECIMEN W/BX 09/29/07 - PAST SURGICAL HISTORY OF 09/2009 performed laser surgery to 3 veins in right lower leg. - REMOVAL ADENOIDS,PRIMARY,<12 Y/O Adenoidectomy - REMOVAL OF TONSILS,<12 Y/O Tonsillectomy - TOTAL ABDOM HYSTERECTOMY Hysterectomy, KWADWO, BSO Family History FAMILY HISTORY Problem Relation Age of Onset - Diabetes Mother - Breast Cancer Mother 1982 - Emphysema Father - Aneurism [Other] [OTHER] Mother - Heart Father - Lipids Mother Patient Allergies ALLERGIES Allergen Reactions - Morphine hives, reddness at IV site - Oxycotin [Oxycodone] nausea, vommitting - Penicillins Rash, Swelling - Pneumovax 23 [Pneum* Other: See Comments Severe local reaction - Artificial Sweetene* The patient's throat goes into a spasm Current Medications Current Outpatient Prescriptions on File Prior to Visit: warfarin (COUMADIN) 3 mg tablet 6 mg on Mon, Wed, Tue, Sat and 3 mg all other days or as directed buPROPion XL (WELLBUTRIN XL) 150 mg 24 hr tablet Take 1 tablet by mouth once daily. warfarin (COUMADIN) 5 mg tablet 6 mg daily or as directed cyclobenzaprine (FLEXERIL) 10 mg tablet Take 1 tablet by mouth daily at bedtime. venlafaxine ER (EFFEXOR XR) 75 mg 24 hr capsule Take 1 capsule by mouth once daily. Take along with 150 mg capsule SUMAtriptan (IMITREX) 50 mg tablet Take 1 tablet by mouth as needed for Migraine Headache (see administration instructions). venlafaxine XR (EFFEXOR XR) 150 mg 24 hr capsule Take 1 capsule by mouth once daily. levothyroxine (LEVOXYL) 150 mcg tablet Take 1 tablet by mouth once daily. Take on empty stomach. For Thyroid. furosemide (LASIX) 20 mg tablet Take 1 tablet by mouth once daily as needed. COMPOUNDED PRESCRIPTION INR home monitoring device. Dx: Hx DVT No current facility-administered medications on file prior to visit. 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 Lungs: Lungs clear to auscultation. No wheezing, rhonchi, rales. Heart: RRR without murmur, gallop, or rubs. No ectopy. Health Maintenance List HEPATITIS C SCREENING due on 2003 MAMMOGRAM due on 02/03/2018 DIABETES SCREEN due on 03/24/2020 LIPID SCREEN due on 03/24/2022 COLORECTAL CANCER SCREENING,SEE MODIFIER due on 04/26/2023 TETANUS due on 03/24/2027 INFLUENZA Completed Data reviewed None ASSESSMENT/PLAN: 1. Depression, unspecified depression type - ICD9: 311, ICD10: F32.9 (primary diagnosis) Continue current medications. 2. Obesity, Class II, BMI 35-39.9 - ICD9: 278.00, ICD10: E66.9 Discussed meds; will try adipex for 3 months - PHENTERMINE 37.5 MG TABLET 3. 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 (HCC) - ICD9: 296.21, ICD10: F32.0 - VENLAFAXINE ER 150 MG CAPSULE,EXTENDED RELEASE 24 HR Follow up in 1 month Lizz Alvarez MD CNOV Observed: 06/15/2017 Status: COMPLETED Source: [place] 11:20 AM [facility] REPOSITORY Office Visit (FAMPWS) DARRIUS GUILLAUME ([id number]) 1960 F NFR Date Time Provider Department 06/15/17 11:20 AM LIZZ ALVAREZ FAMPWS During your visit today, we recorded the following information about you: Temperature Pulse Blood pressure Weight 98 degrees 76/minute 118/72 98.7 kg Height 1.626 m Lizz Alvarez MD 06/17/2017 10:34 AM Signed Chief Complaint Patient presents with: Weight Loss HPI Darrius Guillaume is a 56 year old female who presents here today for to discuss weight loss medication. Having difficulty losing weight; tried watching diet. Discussed diet, activity. She would like to try medication to assist in weight control. Past medical history, appointments, medications, allergies reviewed. 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, L4-5 - Irritable bowel syndrome - Myalgia and myositis, unspecified pain management: physical therapy, psychiatric care, epidural steroids, trigger point injections have failed - Other diseases of trachea and bronchus, not elsewhere classified - Other forms of migraine - Other specified acquired hypothyroidism - Other specified gastritis - Rosacea Previous Surgical History PAST SURGICAL HISTORY Procedure Laterality Date - BIOPSY BREAST needle, negative - CARDIAC DRUG STRESS TEST - DELIVERY ONLY , low cervical x 3 - COLONOSCOP W/ OR W/O [facility] SPEC 04/26/2013 Colonoscopy - COLONOSCOPY - DIAGNOSTIC 03/19 - ECHO - EGD W/O [facility] SPECIMEN W/BX 10/07/00 - EGD W/O [facility] SPECIMEN W/BX 09/29/07 - PAST SURGICAL HISTORY OF 09/2009 performed laser surgery to 3 veins in right lower leg. - REMOVAL ADENOIDS,PRIMARY,ANDlt;12 Y/O Adenoidectomy - REMOVAL OF TONSILS,ANDlt;12 Y/O Tonsillectomy - TOTAL ABDOM HYSTERECTOMY Hysterectomy, KWADWO, BSO Family History FAMILY HISTORY Problem Relation Age of Onset - Diabetes Mother - Breast Cancer Mother 1982 - Emphysema Father - Aneurism [Other] [OTHER] Mother - Heart Father - Lipids Mother Patient Allergies ALLERGIES Allergen Reactions - Morphine hives, reddness at IV site - Oxycotin [Oxycodone] nausea, vommitting - Penicillins Rash, Swelling - Pneumovax 23 [Pneum* Other: See Comments Severe local reaction - Artificial Sweetene* The patient's throat goes into a spasm Current Medications Current Outpatient Prescriptions on File Prior to Visit: warfarin (COUMADIN) 3 mg tablet 6 mg on Mon, Wed, Fri, Sat and 3 mg all other days or as directed buPROPion XL (WELLBUTRIN XL) 150 mg 24 hr tablet Take 1 tablet by mouth once daily. warfarin (COUMADIN) 5 mg tablet 6 mg daily or as directed cyclobenzaprine (FLEXERIL) 10 mg tablet Take 1 tablet by mouth daily at bedtime. venlafaxine ER (EFFEXOR XR) 75 mg 24 hr capsule Take 1 capsule by mouth once daily. Take along with 150 mg capsule SUMAtriptan (IMITREX) 50 mg tablet Take 1 tablet by mouth as needed for Migraine Headache (see administration instructions). venlafaxine XR (EFFEXOR XR) 150 mg 24 hr capsule Take 1 capsule by mouth once daily. levothyroxine (LEVOXYL) 150 mcg tablet Take 1 tablet by mouth once daily. Take on empty stomach. For Thyroid. furosemide (LASIX) 20 mg tablet Take 1 tablet by mouth once daily as needed. COMPOUNDED PRESCRIPTION INR home monitoring device. Dx: Hx DVT No current facility-administered medications on file prior to visit. 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 Lungs: Lungs clear to auscultation. No wheezing, rhonchi, rales. Heart: RRR without murmur, gallop, or rubs. No ectopy. Health Maintenance List HEPATITIS C SCREENING due on 2003 MAMMOGRAM due on 02/03/2018 DIABETES SCREEN due on 03/24/2020 LIPID SCREEN due on 03/24/2022 COLORECTAL CANCER SCREENING,SEE MODIFIER due on 04/26/2023 TETANUS due on 03/24/2027 INFLUENZA Completed Data reviewed None ASSESSMENT/PLAN: 1. Depression, unspecified depression type - ICD9: 311, ICD10: F32.9 (primary diagnosis) Continue current medications. 2. Obesity, Class II, BMI 35-39.9 - ICD9: 278.00, ICD10: E66.9 Discussed meds; will try adipex for 3 months - PHENTERMINE 37.5 MG TABLET 3. 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 (HCC) - ICD9: 296.21, ICD10: F32.0 - VENLAFAXINE ER 150 MG CAPSULE,EXTENDED RELEASE 24 HR Follow up in 1 month Lizz Alvarez MD Referring Provider: SELF [200] Allergies As of Date: 06/15/2017 Noted Allergy Reaction MORPHINE 03/02/2006 Comments: hives, reddness at IV site OXYCOTIN (OXYCODONE) 12/16/2005 Comments: nausea, vommitting PENICILLINS 06/22/2005 2 - Rash 7 - Swelling PNEUMOVAX 23 (PNEUMOCOCCAL 23-PORFIRIO*08/21/2013 14 - Other: See Comments Comments: Severe local reaction artificial sweetener [Other] 08/03/2007 Comments: The patient's throat goes into a spasm Date Reviewed: 06/15/2017 Reviewed by: Radha Montelongo STUDENT - Fully Assessed Reason for Visit: Weight Loss [882] Primary Visit Diagnosis:Depression, unspecified depression type [F32.9] Other Visit Diagnoses:Obesity, Class II, BMI 35-39.9 [E66.9] 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 Take on empty stomach. For Thyroid.Disp: 30 tabletRfl: 5 Phentermine HCl (ADIPEX-P) 37.5 mg tabletTake 1 tablet by mouth once daily for 30 days.Disp: 30 tabletRfl: 0 venlafaxine ER (EFFEXOR XR) 150 mg 24 hr capsuleTake 1 capsule by mouth once daily.Disp: 30 capsuleRfl: 5 Prescriptions as of 06/15/2017 Sig: LEVOTHYROXINE 150 MCG TABLET Take 1 tablet by mouth once d* VENLAFAXINE ER 150 MG CAPSULE* Take 1 capsule by mouth once * WARFARIN 3 MG TABLET 6 mg on Mon, Wed, Fri, Sat an* BUPROPION XL 150 MG TAB Take 1 tablet by mouth once d* WARFARIN 5 MG TABLET 6 mg daily or as directed CYCLOBENZAPRINE 10 MG TABLET Take 1 tablet by mouth daily * SUMATRIPTAN 50 MG TABLET Take 1 tablet by mouth as nee* FUROSEMIDE 20 MG TABLET Take 1 tablet by mouth once d* COMPOUNDED PRESCRIPTION INR home monitoring device. D* PHENTERMINE 37.5 MG TABLET Take 1 tablet by mouth once d* Problem List As Of Date 06/15/2017 Noted Resolved VENOUS THROMBOSIS NOS [I74.9] INVALID FOR* Non morbid obesity due to excess calories [E66.*INVALID FOR* MYALGIA AND MYOSITIS NOS [OLJ7248] INVALID FOR* HYPERCOAGULABILITY STATE PRIMARY [D68.59] INVALID FOR* More... VENOUS THROMBOSIS DEEP, LOWER EXTREM [I80.299] INVALID FOR* More... Migraine with aura [G43.109] INVALID FOR* Hypothyroidism [E03.9] INVALID FOR* ASTHMA UNSPECIFIED [J45.909] INVALID FOR* MIXED HYPERLIPIDEMIA [E78.2] INVALID FOR* ACUTE GASTRITIS W/O HEMORRHAGE [K29.00] INVALID FOR*10/15/2008 Edema [R60.9] INVALID FOR* Chalazion of right lower eyelid [H00.12] INVALID FOR* More... Obstructive sleep apnea syndrome [G47.33] INVALID FOR* Depression [F32.9] INVALID FOR* Fibromyalgia [M79.7] INVALID FOR* Prescriptions ordered this encounter Disp Refills Start End LEVOTHYROXINE 150 MCG TABLET 30 t* 5 06/15/2017 Route: ORAL Sig: Take 1 tablet by mouth once daily. Take on empty stomach. For Thyroid. PHENTERMINE 37.5 MG TABLET 30 t* 0 06/15/2017 07/15/2017 Class: Print RX Route: ORAL Sig: Take 1 tablet by mouth once daily for 30 days. VENLAFAXINE ER 150 MG CAPSULE,EXTEND* 30 c* 5 06/15/2017 Route: ORAL Sig: Take 1 capsule by mouth once daily. Medications Discontinued During This Encounter venlafaxine ER (EFFEXOR XR) 75 mg 24* 30 c* 5 03/24/2017 06/15/2017 Route: ORAL Sig: Take 1 capsule by mouth once daily. Take along with 150 mg capsule Disc: Reason for discontinue is not on file. levothyroxine (LEVOXYL) 150 mcg tabl* 30 t* 2 12/09/2016 06/15/2017 Route: ORAL Sig: Take 1 tablet by mouth once daily. Take on empty stomach. For Thyroid. Disc: Reason for discontinue is not on file. venlafaxine XR (EFFEXOR XR) 150 mg 2* 30 c* 5 12/09/2016 06/15/2017 Route: ORAL Sig: Take 1 capsule by mouth once daily. Disc: Reason for discontinue is not on file. Disposition: Return in about 1 month (around 07/13/2017). Follow-up and Disposition History Recorded Encounter Status:Closed by LIZZ ALVAREZ MD on 06/17/17 ALLERGIES ALLERGIES DATE TYPE / CODE NAME / CODE REACTION SEVERITY SOURCE Drug oxycodone Vomiting Unknown Jillian 8 Allergy/102348127( HCl/M663146274(RX [facility] NORM) Hospital Repository Drug Penicillins/F0010 Swelling Unknown Hankinson 8 Allergy/792349149( 12364(RXNORM) Community SN[facility]) Hospital Repository Drug morphine/L1792325 Rash Unknown Jillian 8 Allergy/656200249( 45(RXNORM) [facility]) Hospital Repository Miscellaneous ARTIFICIAL Swelling Unknown Jillian 8 Allergy/976373710( SWEETENER [facility]) Hospital Repository DRUG/161140103(SNO PNEUMOCOCCAL OTHER: SEE C [place] [address]) 23-PORFIRIO PS VACCINE [facility] [place] Repository Miscellaneous OTHER [place] 8 Allergy/241690203( Clinic Main SNOMED [facility]) [place] Repository DRUG MORPHINE [place] 6 INGREDI/430400680( [facility] SNOM[facility]) [place] Repository DRUG OXYCODONE [place] 6 INGREDI/950580458( [facility] SNOMED CT) [place] Repository Drug PENICILLINS RASH [place] 6 Class/250468340(SN [facility] OMED CT) [place] Repository ENCOUNTERS ENCOUNTERS ADMIT/DISCHARGE ACCOUNT ADMITTING ENCOUNTER LOCATION SOURCE NUMBER CLASS 04/21/2018 [id number] Ambulatory [facility] Hospital ing:OPBI Repository 04/04/2018 [id number] Ambulatory [facility] Hospital ing:LAB Repository 03/01/2018 [id number] Ambulatory [facility] Hospital ing:PSN Repository 02/22/2018 [id number] Ambulatory [facility] Hospital ing:PSN Repository 02/21/2018 [id number] [facility]ulatory [facility] ing:LAB Repository 02/21/2018/02/22/20 [id number] Ambulatory BMSBuilding:Luis Eduardo [place] [address] [place] Repository 01/10/2018 [id number] Ambulatory BMSBuilding:Luis Eduardo Walsh [place] Repository 01/04/2018 [id number] Ambulatory BMSBuilding:B Jillian [place] Repository 01/03/2018 [id number] Ambulatory BMSBuilding:Luis Eduardo Walsh [place] Repository 12/20/2017 [id number] Ambulatory BMSBuilding:Luis Eduardo Walsh [place] Repository 11/22/2017 [id number] Ambulatory [facility] ing:MTLAB Repository 11/22/2017/11/23/19 [id number] Ambulatory BMSBuilding:B [place] 18 [place] [facility] Hospital Repository 11/17/2017/11/18/19 [id number] Ambulatory [address] ing:SP Repository 11/14/2017 [id number] Ambulatory [facility] ing:LAB Repository 10/24/2017 [id number] Ambulatory [facility] ing:RAD Repository 10/14/2017 [id number] Ambulatory [facility] ing:MRI Repository 10/05/2017 [id number] Ambulatory [facility] ing:LAB Repository 09/23/2017 [id number] Ambulatory [facility] ing:LAB Repository 09/23/2017/10/01/19 [id number] Ambulatory BMSBuilding:B Jillian 18 [place] Repository 09/05/2017/09/07/19 [id number] Ambulatory [address] Repository 08/29/2017/08/30/19 [id number] Ambulatory [address] Repository 08/29/2017 [id number] Ambulatory [facility] Repository 08/29/2017/08/31/19 [id number] Ambulatory [address] Repository 07/13/2017/07/16/19 [id number] Ambulatory [address] Repository 06/25/2017/06/28/19 [id number] [place], Ambulatory [address] ing:PCURoom: Repository [id number]: 1 06/25/2017 [id number] [place], Ambulatory BMSBuilding:B Jillian Holman [place] Repository 06/25/2017 [id number] [facility], Ambulatory BMSBuilding:B Jillian [place] Repository 06/25/2017/06/28/19 [id number] Ambulatory BMSBuilding:W Jillian 18 [facility] Repository 06/25/2017 [id number] Ambulatory BMSBuilding:B Jillian ELDER.[facility] Repository 06/15/2017/06/18/[id number] Repository PAYERS PAYERS ENCOUNTER GUARANTOR PAYER SUBSCRIBER SOURCE 04/21/2018 DARRIUS Dillon Primary DARRIUS Dillon Jillian [id number] W Insurance:SUMMA CARE CABBELLDOB: [place], MEDICAREPolicy [id number] [place] [address]Ify: Number: Repository [id number] (HP) Date:6091-86-67TT [address] [place] [address] 200[address]NI: 04/21/2018 Secondary NOT GIVENUNK [place]inson Insurance:SELF PAY [facility] Number: Effective Repository Date:2018-01-20 04/04/2018 DARRIUS I Primary DARRIUS Dillon [place]inson [id number] W Insurance:SUMMA CARE CABBELLDOB: [place], MEDICAREPolicy [id number] [place] [address]Pdf: Number: Repository [id number] (HP) Date:1053-59-45RJ [address] [place] [address] 42866GN: 04/04/2018 Secondary NOT GIVENUNK [place] Insurance:SELF PAY [facility] Number: Effective Repository Date:2018-04-04 03/01/2018 DARRIUS I Primary DARRIUS Dillon Jillian [id number] W Insurance:SUMMA CARE CABBELLDOB: Community [place], MEDICAREPolicy [id number] [place] [address]Lly: Number: Repository [id number] (HP) Date:8889-75-29NP [address] [place] [address] 38387OX: 03/01/2018 Secondary NOT GIVENUNK [place] Insurance:SELF PAY [facility] Number: Effective Repository Date:2017-11-14 02/22/2018 DARRIUS I Primary DARRIUS Dillon Jillian [id number] W Insurance:SUMMA CARE CABBELLDOB: Community [place], MEDICAREPolicy [id number] [place] [address]Kap: Number: Repository [id number] (HP) Date:5860-22-84EG [address], [place] [address]CT: 02/22/2018 Secondary NOT GIVENUNK [place] Insurance:SELF PAY [facility] Number: Effective Repository Date:2017-11-14 02/21/2018 DARRIUS I Primary DARRIUS I [place] [id number] W Insurance:SUMMA CARE CABBELLDOB: Community [place], MEDICAREPolicy [email or web address] [id number]: Number: Repository [id number] (HP) Date:2074-97-73XL [address], [place] [address]EA: 02/21/2018 Secondary NOT GIVENUNK Jillian Insurance:SELF PAY [facility] Number: Effective Repository Date:2018-02-21 02/21/2018 DARRIUS I Primary DARRIUS Dillon Jillina [id number] W Insurance:SUMMA CARE CABBELLDOB: Community [place], MEDICAREPolicy [id number] [email or web address]] [address]Xxb: Number: Repository [id number] (HP) Date:4775-19-52MD [address] [facility] [address]SB: 02/21/2018 Secondary NOT GIVENUNK Jillian Insurance:SELF PAY [facility] Number: Effective Repository Date:2018-02-21 01/10/2018 DARRIUS I Primary DARRIUS I Jillian [id number] W Insurance:SUMMA CARE CABBELLDOB: [place], MEDICAREPolicy [id number] [facility]es [facility] [[email or web address]] [address]Tvr: Number: Repository [id number] (HP) Date:1438-73-66AS [address] [place] [address]TS: 01/10/2018 Secondary NOT GIVENUNK Jillian Insurance:SELF PAY [facility] Number: Effective Repository Date:2018-01-10 01/04/2018 DARRIUS I Primary DARRIUS I Jillian [id number] [address] Insurance:SUMMA CARE CABBELLDOB: Community [place], MEDICAREPolicy [id number] [place] [address]Aqn: Number: Repository [id number] (HP) Date:5529-42-49HN [address] [facility] [place] [address]YD: 01/04/2018 Secondary NOT GIVENUNK Hank[place] Insurance:SELF PAY [facility] Number: Effective Repository Date:2017-12-29 01/03/2018 DARRIUS I Primary DARRIUS I Hankinson [id number] W Insurance:SUMMA CARE CABBELLDOB: Community [place], MEDICAREPolicy [id number] [place] [address]Khy: Number: Repository [id number] (HP) Date:9424-24-48IS [address], [place] [address]SO: 01/03/2018 Secondary NOT GIVENUNK Jillian Insurance:SELF PAY [facility] Number: Effective Repository Date:2018-01-03 12/20/2017 DARRIUS I Primary DARRIUS I Hankinson [id number] W Insurance:SUMMA CARE CABBELLDOB: Community [place], MEDICAREPolicy [id number] [place] [address]Lzf: Number: Repository [id number] (HP) Date:1937-34-22BY [address] [facility] [address]IG: 12/20/2017 Secondary NOT GIVENUNK Jillian Insurance:SELF PAY [facility] Number: Effective Repository Date:2017-12-20 11/22/2017 DARRIUS I Primary DARRIUS Jillian [id number] W Insurance:SUMMA CARE CABBELLDOB: Community [place], MEDICAREPolicy [id number] [place] [address]Qdl: Number: Repository [id number] (HP) Date:3368-89-97IG [address], [place] [address]JF: 11/22/2017 Secondary NOT GIVENUNK Jillian Insurance:SELF PAY [facility] Number: Effective Repository Date:2017-11-22 11/22/2017 DARRIUS I Primary DARRIUS I Jillian [id number] W Insurance:SUMMA CARE CABBELLDOB: Community [place], MEDICAREPolicy [id number] [place] [address]Jdz: Number: Repository [id number] (HP) Date:3599-94-35YB [address] [place] [address] 525[address]EB: 11/22/2017 Secondary NOT GIVENUNK Hankinson Insurance:SELF PAY [facility] Number: Effective Repository Date:2017-11-22 11/17/2017 DARRIUS I Primary DARRIUS I Hankinson [id number] [address] Insurance:SUMMA CARE CABBELLDOB: Community [place], MEDICAREPolicy [id number] [place] [address]Cvv: Number: Repository [id number] (HP) Date:4606-41-26MG [address] [place] [address]ER: 11/17/2017 Secondary NOT GIVENUNK Hankinson Insurance:SELF PAY [facility] Number: Effective Repository Date:2017-10-27 11/14/2017 DARRIUS I Primary DARRIUS I Jillian [id number] [address] Insurance:SUMMA CARE CABBELLDOB: Community [place], MEDICAREPolicy [id number] [place] [address]Crv: Number: Repository [id number] (HP) Date:7659-23-77UN [address] [place] [address] 42[address]MN: 11/14/2017 Secondary NOT GIVENUNK Hankinson Insurance:SELF PAY [facility] Number: Effective Repository Date:2017-11-14 10/24/2017 DARRIUS I Primary DARRIUS I Hankinson [id number] W Insurance:SUMMA CARE CABBELLDOB: Community [place], MEDICAREPolicy [id number] [place] [address]Grl: Number: Repository [id number] (HP) Date:8570-24-54LR [address] [place] [address] 45[address]FC: 10/24/2017 Secondary NOT GIVENUNK Jillian Insurance:SELF PAY [facility] Number: Effective Repository Date:2017-10-13 10/14/2017 DARRIUS I Primary DARRIUS Dillon Hankinson [id number] W Insurance:SUMMA CARE CABBELLDOB: Community [place], MEDICAREPolicy [id number] [place] [address]Qmq: Number: Repository [id number] (HP) Date:7349-79-54ZY [address] [place] [address] 37881CI: 10/14/2017 Secondary NOT GIVENUNK Hankinson Insurance:SELF PAY [facility] Number: Effective Repository Date:2017-10-10 10/05/2017 DARRIUS I Primary DARRIUS Dillon Jillian [id number] W Insurance:SUMMA CARE CABBELLDOB: Community [place], MEDICAREPolicy [id number] [place] [address]Nzy: Number: Repository [id number] (HP) Date:4722-61-31HU [address] [place] [address] 90[address]HM: 10/05/2017 Secondary NOT GIVENUNK Jillian Insurance:SELF PAY [facility] Number: Effective Repository Date:2017-10-05 09/23/2017 DARRIUS I Primary DARRIUS Dillon Hankinson [id number] W Insurance:SUMMA CARE CABBELLDOB: Community [place], MEDICAREPolicy [id number] [place] [address]Jve: Number: Repository [id number] (HP) Date:6593-08-27QW [address] [place] [address] 39[address]YF: 09/23/2017 Secondary NOT GIVENUNK Hankinson Insurance:SELF PAY [facility] Number: Effective Repository Date:2017-09-23 09/23/2017 DARRIUS I Primary DARRIUS Dillon Jillian [id number] W Insurance:SUMMA CARE CABBELLDOB: Community [place], MEDICAREPolicy [id number] [place] [address]Qiy: Number: Repository [id number] (HP) Date:8657-40-04UQ [address] [place] [address] 900[address]YF: 09/23/2017 Secondary NOT GIVENUNK Jillian Insurance:SELF PAY [facility] Number: Effective Repository Date:2017-09-30 06/25/2017 Darrius I Primary Darrius I Hankinson [id number] W Insurance:SUMMA CARE CabbellDOB: [place], MEDICARE[place] [id number] [facility]es [facility] [[email or web address]] [address]Afy: Number: Repository [id number] (HP) Date:8028-33-68SO [address] [place] [address] 04[address]AV: 06/25/2017 Secondary NOT GIVENUNK Jillian Insurance:SELF PAY [facility] Number: Effective Repository Date:2017-06-25 06/25/2017 Drarius I Primary Darrius I Jillian [id number] W Insurance:SUMMA CARE CabbellDOB: [place], MED[place]ARE[place] [id number] Crosses Regional Hospital [[email or web address]] [address]Emb: Number: Repository [id number] (HP) Date:7760-71-15GC [address] [place] [address] 97895ZZ: 06/25/2017 Secondary NOT GIVENUNK Jillian Insurance:SELF PAY [facility] Number: Effective Repository Date:2017-06-25 06/25/2017 Darrius I Primary Darirus I Jillian [id number] W Insurance:SUMMA CARE CabbellDOB: [place], MEDICARE[place] [id number] Crosses Regional Hospital [[email or web address]] [address]Moo: Number: Repository [id number] (HP) Date:4710-31-11RM [address] [place] [address] 713[address]DV: 06/25/2017 Secondary NOT GIVENUNK Hankinson Insurance:SELF PAY [facility] Number: Effective Repository Date:2017-06-25 06/25/2017 Darrius I Primary Darrius I Hankinson [id number] W Insurance:SUMMA CARE CabbellDOB: [place], MEDICARE[place] [id number] Crosses Regional Hospital [[email or web address]] [address]Rjm: Number: Repository [id number] () Date:3265-08-20TO [address] [place] [address] 113[address]PR: 06/25/2017 Secondary NOT GIVENUNK Hankinson Insurance:SELF PAY [facility] Number: Effective Repository Date:2017-06-25 06/25/2017 Darrius Guillaume Primary Darrius Guillaume Hankinson [id number] [facility] Insurance:SUMMA CARE IDOB[place] [id number] Hospital [address]Kkz: (330) Number: Repository [phone] () [id number] Date:5913-17-37YK [address] [place] [address] 611[address]CF: 06/25/2017 Secondary NOT GIVENUNK Jillian Insurance:SELF PAY [facility] Number: Effective Repository Date:2017-06-25
== END ==
PROVIDERS: Family Provider Internal Medicine; PCP Internal Medicine; Referring Provider Internal Medicine; Visit Provider Internal Medicine
DX: E03.9 Hypothyroidism, unspecified (principal)
CPT/HCPCS: 36415; 84439; 84443

== ENCOUNTER → 2018-04-21 08:26 | Outpatient (CLI) | payer MEDICARE, SELFPAY ==
[2018-02-21 08:59] VITALS: BMI 40.1
--- NOTE | 2018-04-21 08:31 | BI_ITS ---
MAMMOGRAPHY - BILATERAL SCREENING REASON FOR EXAM: Female, 57 years old. Routine annual screening examination. PERTINENT HISTORY: Mother with breast cancer. TECHNIQUE: Digital bilateral breast elenita (3D mammographic acquisition) in the CC and MLO projections. 2-D mediolateral oblique (MLO) and craniocaudad (CC) views of both breasts were obtained. CAD: Full Field Digital Mammography with Computer Added Detection was performed. COMPARISON: Comparison is made with prior outside examination dated February 03, 2017. FINDINGS: Breast Composition: The breasts are almost entirely fatty. There are no dominant masses or suspicious calcifications. Stable small bilateral axillary lymph nodes. Stable scattered bilateral benign-appearing calcifications. No other significant abnormalities are identified. There has been no significant change since the prior study. BI/SCREENING MAMM (CAD), BILAT IMPRESSION: Stable bilateral screening mammogram. Yearly follow-up mammogram recommended. (A) ASSESSMENT CATEGORY: BIRADS Category 2: Benign. A letter regarding these results will be sent to the patient by the facility within 30 days. Approximately 10% of breast cancers are not detected by mammography. A normal mammogram should not delay biopsy of a clinically suspicious abnormality. [id number] Electronically Signed: Anant Neff MD at 9:53 EST Tel [phone], Service support ,
== END ==
PROVIDERS: Family Provider Internal Medicine; PCP Internal Medicine; Referring Provider Internal Medicine; Visit Provider Internal Medicine
DX: Z12.31 Encounter for screening mammogram for malignant neoplasm of breast (principal)
CPT/HCPCS: 77063; 77067

== ENCOUNTER → 2018-07-04 11:00 | Outpatient (CLI) | payer MEDICARE, SELFPAY | PROVIDERS: Family Provider Internal Medicine; PCP Internal Medicine; Visit Provider Internal Medicine | DX: Z09 Encounter for follow-up examination after completed treatment for conditions other than malignant neoplasm (principal) | CPT/HCPCS: 98960; G0463 ==

== ENCOUNTER 2018-08-12 23:36 | Emergency (ER) | payer MEDICARE, SELFPAY ==
[2018-08-12 23:39] VITALS: BP 151/89; PULSE 105; RESP 17; TEMP 37; O2SAT 97; BMI 40.8
--- NOTE | 2018-08-12 23:55 | ED.DCSUM_ITS ---
History of Present Illness Chief Complaint: Lower Extremity Injury Informant: Patient Narrative: Patient stated that yesterday she noticed some redness warmth and swelling on her right medial thigh. She has had DVTs in the past and is on Coumadin. She missed a couple doses therefore her INR dropped into the ones. This concerned her that she might have a blood clot so she came in. Is tender to touch. Current severity is mild. No other home treatment. No history of cellulitis. No injury to the area. 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 (5) Panic attacks Status: Acute (6) Anxiety associated with depression Status: Chronic (7) Diverticulosis Status: Chronic (8) Fibromyalgia Status: Chronic (9) Fibromyalgia Status: Chronic (10) Generalized anxiety disorder Status: Chronic (11) Hypothyroid Status: Chronic (12) Hypothyroid Status: Chronic (13) Migraine Status: Chronic (14) Migraine Status: Chronic (15) Morbid obesity Status: Chronic (16) Obesity (BMI 35.0-39.9 without comorbidity) Status: Chronic (17) Osteoarthritis Status: Chronic (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 Past Medical History - Allergies and Home Meds Allergies/Adverse Reactions: Allergies morphine Allergy (Verified 08/12/18 23:38) Rash oxycodone HCl [From OxyContin] Allergy (Verified 08/12/18 23:38) Vomiting Penicillins [PCN] Allergy (Verified 08/12/18 23:38) Swelling ARTIFICIAL SWEETENER Allergy (Uncoded 08/12/18 23:38) Swelling Primary Care Physician: Ziyad Sexton MD [Primary Care Provider] - Prior records reviewed: Yes Surgical History: no surgical history Smoking Status: Never smoker Alcohol: None Drugs: None - Family History Paternal Family History: Family History (Last Reviewed 02/21/18 @ 09:05 by Katey Yepez) Mother Diabetes Heart disease Breast cancer Father Heart disease COPD (chronic obstructive pulmonary disease) Grandmother Cancer Grandfather Cancer Sister Lupus Family History: Reports: No pertinent history Review of Systems General: Denies: Chills, Fever, Sweats Eyes: Denies: Visual changes - bilaterally, Diplopia ENT: Denies: Rhinorrhea, Sore throat Cardiovascular: Denies: Chest pain, Palpitations Respiratory: Denies: Dyspnea, Cough, Dyspnea on exertion Gastrointestinal: Denies: Abdominal pain, Nausea, Vomiting, Diarrhea, Melena, Hematochezia Genitourinary: Denies: Dysuria, Hematuria, Frequency Musculoskeletal: Denies: Back pain, Extremity Pain Skin: Reports: - - See HPI. Denies: Rash, Wounds Neurological: Denies: Headache, Weakness, Numbness Physical Exam Vital Signs/Narrative: Vital Signs Temp Pulse Resp BP Pulse Ox 08/12/18 23:39 98.6 F 105 H 17 151/89 H 97 General: Well nourished, Well developed, No Acute Distress Head: Normocephalic, Atraumatic Eyes: Perrl, EOMI ENT: Moist mucous membranes, No rhinorrhea Neck: Supple, Nontender Cardiovascular: Regular rate, Regular rhythm, No murmurs Respiratory: No distress, CTA bilaterally, Chest nontender Abdomen: Soft, Nontender, Nondistended, Normal bowel sounds Back: Nontender, Normal Inspection Extremities: Nontender, No edema Skin: No rash, - - Right medial thigh has a 4 inch x 2 inch area of cellulitis. There is no palpable cords. There is no superficial thrombophlebitis. There is no abscess. There is no palpable veins. There is no swelling to the rest of the leg. Nothing to concern a DVT.. Negative for: Normal color Neurological: Alert, Oriented x3, Cranial nerves II-XII grossly intact, Normal Strength, Normal Sensation Psychological: Normal affect, Normal Mood Diagnostic/Tx/Re-eval - Medical Decision Making Patient given Keflex for superficial cellulitis. I do not think she needs Bactrim. She will continue Tylenol. I do not think she needs an ultrasound of her leg. She is Abhishek on Coumadin and has continued her normal dosing schedule. I do not think she has a blood clot or superficial thrombophlebitis. She will return if she worsens. ED Disposition - Plan for ED Patient: Disposition: Home or Assisted Living Diagnosis: Cellulitis Instructions: Cellulitis - Causes,Symptoms,Treating Prescriptions: Cephalexin [Keflex] 500 mg PO Q6 #40 cap Referrals: Ziyad Sexton MD [Primary Care Provider] -
[2018-08-13] MEDS: Cephalexin 250 MG Capsule 500 MG PO (00:07)
== END 2018-08-13 00:09 | disposition home or self-care (01) ==
PROVIDERS: Emergency Provider Emergency Medicine; Family Provider Internal Medicine; PCP Internal Medicine
DX: L03.115 Cellulitis of right lower limb (principal); E66.01 Morbid (severe) obesity due to excess calories; Z68.39 Body mass index [BMI] 39.0-39.9, adult; E03.9 Hypothyroidism, unspecified; F41.1 Generalized anxiety disorder; M79.7 Fibromyalgia; F32.9 Major depressive disorder, single episode, unspecified; G54.2 Cervical root disorders, not elsewhere classified
CPT/HCPCS: 99283

== ENCOUNTER → 2019-01-01 11:45 | Outpatient (CLI) | payer MEDICARE, SELFPAY ==
[2019-01-01 11:36] VITALS: BMI 39.4
[2019-01-02 08:23] LABS: Bacteria 0 SEEN /hpf (None Seen); Mucous, Urine 0 SEEN /hpf (<or=2+); Red Blood Cells-Urine 0 SEEN /hpf (0-5)
[2019-01-02 12:07] LABS: Color, Urine Yellow (Yellow); Glucose, Dipstick Normal (Normal); Ketone-Dipstick Negative (Negative); Leukocyte Esterase-Dipstick 100 /ul (Negative); Nitrite-Dipstick Negative (Negative); Occult Blood-Urine Negative /ul (Negative); Protein-Dipstick Negative (Negative); Specific Gravity, Urine 1.005 (1.002-1.030); Urine Bilirubin Dipstick Negative (Negative); Urine Clarity Clear (Clear); Urine Urobilinogen Normal (Normal)
[2019-01-02 12:15] LABS: Squamous Epithelial Cells - UA 0-5 SEEN /hpf (5-10); White Blood Cells 0-5 SEEN /hpf (0-5)
== END ==
PROVIDERS: Family Provider Internal Medicine; PCP Internal Medicine; Visit Provider Internal Medicine
DX: R30.0 Dysuria (principal)
CPT/HCPCS: 81001

== ENCOUNTER → 2019-01-04 09:15 | Outpatient (CLI) | payer MEDICARE, SELFPAY ==
[2019-01-01 11:36] VITALS: BMI 39.4
[2019-01-04 11:29] LABS: AST(SGOT) 21 U/L (15-37); Alanine Aminotransfer ALT/SGPT 26 U/L (13-56); Anion Gap 6 (5-15); BUN 17 mg/dL (7-18); BUN/Creat Ratio 21.4 RATIO (10-20); Calcium,Total 8.6 mg/dL (8.5-10.1); Chloride 106 mmol/L (98-107); Creatinine, Serum 0.79 mg/dL (0.55-1.02); EST Glomerular Filtration Rate 79 mL/min (>60); Est Glom Filt Rate - Afr Amer 95 mL/min (>60); Glucose 73 mg/dL (74-106); Potassium 3.9 mmol/L (3.5-5.1); Sodium Level 143 mmol/L (136-145); Thyroid Stim Hormone (TSH) 0.22 uIU/mL (0.358-3.74)
== END ==
PROVIDERS: Family Provider Internal Medicine; PCP Internal Medicine; Referring Provider Internal Medicine Endocrinology, Diabetes & Metabolism; Visit Provider Internal Medicine Endocrinology, Diabetes & Metabolism
DX: E03.8 Other specified hypothyroidism (principal); E55.9 Vitamin D deficiency, unspecified
CPT/HCPCS: 36415; 80048; 82306; 84443; 84450; 84460

== ENCOUNTER → 2019-02-28 10:05 | Outpatient (CLI) | payer MEDICARE, SELFPAY ==
[2019-02-28 09:33] VITALS: BMI 39.4
[2019-02-28 12:10] LABS: Absolute Lymphocyte Count 1.88 X10^3/uL (0.83-4.51); Absolute Neutrophil Count 3.3 X10^3/uL (2.0-7.7); Basophil# 0.06 X10^3/uL; Eosinophil# 0.17 X10^3/uL; Eosinophils% 2.9 % (0-5); Hematocrit 42.4 % (37-47); Hemoglobin 13.4 g/dL (12.0-15.0); Lymphocyte # 1.88 X10^3/ul (4.0); Lymphocyte % 32.1 % (19-41); Mean Corp Hgb Conc 31.6 g/dL (32-36); Mean Corpuscular Hgb 29.8 pg (27.0-32.0); Mean Corpuscular Volume 94.2 fL (81-99); Mean Platelet Vol. 9.6 fl (6.2-12.0); Monocyte# 0.43 X10^3/uL; Monocyte% 7.3 % (0-10); NRBC Flagged by Analyzer 0 % (0-5); Neutrophil % 56.4 % (47-70); Platelet Count 232 K/mm3 (150-450); RBC Distribution Width SD 41.6 fl (35.1-43.9); White Blood Count 5.9 K/mm3 (4.4-11.0)
[2019-02-28 12:45] LABS: Cholesterol 259 mg/dL (200); High Density Lipoprotein 60 mg/dL; Triglycerides 157 mg/dL; Very Low Density Lipoprotein 31 mg/dL (5-40)
== END ==
PROVIDERS: Family Provider Internal Medicine; PCP Internal Medicine; Visit Provider Internal Medicine
DX: E03.9 Hypothyroidism, unspecified (principal)
CPT/HCPCS: 36415; 80061; 85025

== ENCOUNTER → 2019-06-21 12:04 | Outpatient (CLI) | payer MEDICARE, SELFPAY ==
[2019-02-28 09:33] VITALS: BMI 39.4
--- NOTE | 2019-06-21 12:09 | BI_ITS ---
MAMMOGRAPHY - BILATERAL SCREENING REASON FOR EXAM: Female, 58 years old. Routine annual screening examination. PERTINENT HISTORY: Mother with breast cancer. TECHNIQUE: Digital bilateral breast ang (3D mammographic acquisition) in the CC and MLO projections. 2-D mediolateral oblique (MLO) and craniocaudad (CC) views of both breasts were obtained. CAD: Full Field Digital Mammography with Computer Added Detection was performed. COMPARISON: Comparison is made with prior examination dated April 21, 2018. FINDINGS: Breast Composition: The breasts are almost entirely fatty. There are no dominant masses or suspicious calcifications. Stable scattered calcifications in the upper lateral anterior aspect of the right breast. Stable benign-appearing bilateral axillary lymph nodes. No other significant abnormalities are identified. There has been no significant change since the prior study. BI/SCREEN MAMM (CAD) W/ANG BILAT IMPRESSION: Stable bilateral screening mammogram. Yearly follow-up mammogram recommended. (A) ASSESSMENT CATEGORY: BIRADS Category 2: Benign. A letter regarding these results will be sent to the patient by the facility within 30 days. Approximately 10% of breast cancers are not detected by mammography. A normal mammogram should not delay biopsy of a clinically suspicious abnormality. [id number] Electronically Signed: Anant Neff, at 13:24 EST , Service support ,
== END ==
PROVIDERS: PCP Internal Medicine; Referring Provider Internal Medicine; Visit Provider Internal Medicine
DX: Z12.31 Encounter for screening mammogram for malignant neoplasm of breast (principal); Z80.3 Family history of malignant neoplasm of breast
CPT/HCPCS: 77063; 77067

== ENCOUNTER → 2019-09-03 16:23 | Outpatient (CLI) | payer MEDICARE, SELFPAY ==
[2019-08-29 09:51] VITALS: BMI 39.4
[2019-09-03 17:02] LABS: Vitamin D,25 Hydroxy 70.7 ng/mL
[2019-09-03 17:12] LABS: AST(SGOT) 23 U/L (15-37); Alanine Aminotransfer ALT/SGPT 29 U/L (13-56); Albumin, Serum 3.7 g/dL (3.2-5.0); Alkaline Phosphatase 101 U/L (45-117); Anion Gap 5 (5-15); BUN 15 mg/dL (7-18); BUN/Creat Ratio 19.6 RATIO (10-20); Bilirubin, Direct 0.12 mg/dL (0.00-0.30); Calcium,Total 9.1 mg/dL (8.5-10.1); Chloride 107 mmol/L (98-107); Creatinine, Serum 0.77 mg/dL (0.55-1.02); EST Glomerular Filtration Rate 82 mL/min (>60); Est Glom Filt Rate - Afr Amer 99 mL/min (>60); Globulin 3.9 g/dL (2.2-4.2); Glucose 84 mg/dL (74-106); Potassium 4.4 mmol/L (3.5-5.1); Protein, Total 7.6 g/dL (6.4-8.2); Sodium Level 141 mmol/L (136-145); Thyroid Stim Hormone (TSH) 0.81 uIU/mL (0.358-3.74)
== END ==
PROVIDERS: PCP Internal Medicine; Referring Provider Internal Medicine; Visit Provider Internal Medicine
DX: E03.8 Other specified hypothyroidism (principal); E55.9 Vitamin D deficiency, unspecified; E03.9 Hypothyroidism, unspecified
CPT/HCPCS: 80048; 80076; 82306; 84443

== ENCOUNTER → 2019-12-18 11:24 | Outpatient (CLI) | payer MEDICARE, SELFPAY ==
[2019-12-18 10:50] VITALS: BMI 39.4
[2019-12-18 11:57] LABS: Absolute Neutrophil Count 3.7 X10^3/uL (2.0-7.7); Basophil# 0.03 X10^3/uL; Basophil% 0.5 % (0-1); Eosinophil# 0.14 X10^3/uL; Eosinophils% 2.2 % (0-5); Hematocrit 37.6 % (37-47); Hemoglobin 12.2 g/dL (12.0-15.0); Lymphocyte % 30.4 % (19-41); Mean Corp Hgb Conc 32.4 g/dL (32-36); Mean Corpuscular Hgb 30.7 pg (27.0-32.0); Mean Corpuscular Volume 94.5 fL (81-99); Mean Platelet Vol. 9.2 fl (6.2-12.0); Monocyte# 0.43 X10^3/uL; Monocyte% 6.9 % (0-10); NRBC Flagged by Analyzer 0 % (0-5); Neutrophil # 3.73 X10^3/uL (2.7-7.7); Neutrophil % 59.5 % (47-70); Platelet Count 218 K/mm3 (150-450); RBC Distribution Width CV 12.4 % (11.6-14.6); RBC Distribution Width SD 42.5 fl (35.1-43.9); Red Blood Count 3.98 M/mm3 (4.2-5.4); White Blood Count 6.3 K/mm3 (4.4-11.0)
[2019-12-18 12:40] LABS: Vitamin B12 488 pg/mL (211-911)
[2019-12-18 12:53] LABS: ALB/GLOB Ratio 0.9 RATIO (0.9-2.4); AST(SGOT) 27 U/L (15-37); Alanine Aminotransfer ALT/SGPT 31 U/L (13-56); Albumin, Serum 3.5 g/dL (3.2-5.0); Alkaline Phosphatase 99 U/L (45-117); Anion Gap 3 (5-15); BUN 11 mg/dL (7-18); BUN/Creat Ratio 14.7 RATIO (10-20); Calcium,Total 8.8 mg/dL (8.5-10.1); Chloride 109 mmol/L (98-107); Creatinine, Serum 0.75 mg/dL (0.55-1.02); EST Glomerular Filtration Rate 84 mL/min (>60); Est Glom Filt Rate - Afr Amer 102 mL/min (>60); Glucose 77 mg/dL (74-106); Protein, Total 7.5 g/dL (6.4-8.2); Sodium Level 140 mmol/L (136-145); Thyroid Stim Hormone (TSH) 4.04 uIU/mL (0.358-3.74)
== END ==
PROVIDERS: PCP Internal Medicine; Referring Provider Internal Medicine; Visit Provider Internal Medicine
DX: E03.9 Hypothyroidism, unspecified (principal); G62.9 Polyneuropathy, unspecified; K57.92 Diverticulitis of intestine, part unspecified, without perforation or abscess without bleeding; K57.90 Diverticulosis of intestine, part unspecified, without perforation or abscess without bleeding
CPT/HCPCS: 36415; 80053; 82607; 84443; 85025

== ENCOUNTER → 2019-12-26 08:29 | Outpatient (CLI) | payer MEDICARE, SELFPAY ==
[2019-12-25 13:57] VITALS: BMI 41.7
--- NOTE | 2019-12-26 08:29 | CT_ITS ---
STUDY: CT ABDOMEN AND PELVIS WITH CONTRAST REASON FOR EXAM: Female, 59 years old. LLQ pain, diarrhea. Prior appendectomy, x 3, KWADWO/BSO. RADIATION DOSAGE (If Supplied By Facility): CTDIvol = ( 18.32 ) mGy, DLP = ( 1167.41 ) mGycm TECHNIQUE: Transaxial images were obtained from the dome of the diaphragm to the symphysis pubis with oral contrast. Oral and amp; IV Readi-CAT and amp; 100mL Isovue-300 was administered. Sagittal and coronal images were reconstructed. Individualized dose optimization techniques were used for this CT. COMPARISON: Comparison is made with prior study dated 09/24/2011. FINDINGS: The visualized lung bases are unremarkable. The visualized portions of the heart are within normal limits. There is decreased attenuation of the liver consistent with steatosis. Normal gallbladder and extrahepatic biliary system. Normal spleen. Normal pancreas. Normal bilateral adrenal glands. Normal right kidney. 1.5 cm cyst in the upper pole of the left kidney. There is a small hiatal hernia. Normal small intestine. Normal colon. The patient is status post appendectomy. There is scattered atherosclerotic calcification of the abdominal aorta, without a demonstrated aneurysm. Normal inferior vena cava. Normal retroperitoneum. Normal urinary bladder. There is absence of the uterus consistent with a prior hysterectomy. Surgical clips are seen in the left side of the pelvis. Clips are seen in the There is a small umbilical hernia containing fat. Normal osseous structures. CT/Abdomen/Pelvis WITH Contrast IMPRESSION: Fatty infiltration of the liver. Status post hysterectomy and appendectomy. No acute abnormalities Electronically Signed: Anant Neff, at 9:09 EDT , Service support ,
== END ==
PROVIDERS: PCP Internal Medicine; Referring Provider Surgery; Visit Provider Surgery
DX: R10.32 Left lower quadrant pain (principal)
CPT/HCPCS: 74177; Q9967

== ENCOUNTER 2020-01-08 07:16 | Day surgery (SDC) | payer MEDICARE, SELFPAY ==
[2019-12-25 13:57] VITALS: BMI 41.7
[2020-01-08 07:41] VITALS: BP 133/69; PULSE 94; RESP 16; TEMP 36.8; O2SAT 97; BMI 40.9
[2020-01-08] MEDS: Lactated Ringers 1,000 ML 100 ML IV (07:46)
--- NOTE | 2020-01-08 08:06 | HP.PCM_ITS ---
Problem List (1) LLQ abdominal pain Status: Acute (2) Diverticulosis Status: Chronic Qualifiers: Diverticulosis site: diverticulosis of large intestine Diverticulosis bleeding: diverticulosis without bleeding Qualified Code(s): K57.30 - Diverticulosis of large intestine without perforation or abscess without bleeding History and Physical Date of Admission: 01/08/[address] Manoj Clayton MD on 12/25/19 at 1423 Addendum entered and electronically signed by Manoj Clayton MD 12/25/19 14:23: The patient's physical exam is wrong in the note. The patient did have moderate left lower quadrant pain with no rebound or guarding. Intake Chief Complaint: Diverticulitis/c-scope consult Allergies morphine Allergy (Verified 12/25/19 13:59) Rash oxycodone HCl [From OxyContin] Allergy (Verified 12/25/19 13:59) Vomiting Penicillins [PCN] Allergy (Verified 12/25/19 13:59) Swelling ARTIFICIAL SWEETENER Allergy (Uncoded 08/29/18 09:25) Swelling Medications levothyroxine 100 mcg tablet 100 mcg PO DAILY@0600 #60 tab 10/18/18 [Rx Confirmed 12/25/19] sumatriptan succinate 25 mg tablet See Rx Instructions PO .COMPLEX #10 tab 11/23/18 [Rx Confirmed 12/25/19] comprs.stocking,thigh,long,med See Dose Instructions .ROUTE .MEDSUPPLY #12 ea 01/11/19 [Rx Confirmed 12/25/19] calcium citrate 315 mg-vitamin D3 250 unit tablet 1 tab PO DAILY 01/18/19 [History Confirmed 12/25/19] cholecalciferol (vitamin D3) 1,250 mcg (50,000 unit) capsule 50,000 unit PO QWEEK 01/18/19 [History Confirmed 12/25/19] cholecalciferol (vitamin D3) 50 mcg (2,000 unit) capsule 2,000 unit PO DAILY 01/18/19 [History Confirmed 12/25/19] multivitamin with minerals 2 tab PO TID 01/18/19 [History Confirmed 12/25/19] amitriptyline 25 mg tablet 25 mg PO DAILY 02/16/19 [History Confirmed 12/25/19] warfarin 6 mg tablet 6 mg PO QDAY #90 tab 03/21/19 [Rx Confirmed 12/25/19] warfarin 3 mg tablet 3 mg PO DAILY #150 tab 04/25/19 [Rx Confirmed 12/25/19] warfarin 2 mg tablet 2 mg PO DAILY #90 tab 05/29/19 [Rx Confirmed 12/25/19] atorvastatin 10 mg tablet See Rx Instructions .ROUTE .COMPLEX #60 tab 08/03/19 [Rx Confirmed 12/25/19] cyclobenzaprine 10 mg tablet 10 mg PO QHS PRN #30 tab 08/20/19 [Rx Confirmed 12/25/19] albuterol sulfate 90 mcg/actuation aerosol inhaler 2 puff INHALATION Q6H PRN #8.5 g 08/29/19 [Rx Confirmed 12/25/19] furosemide 20 mg tablet 20 mg PO DAILY PRN #90 tab 09/05/19 [Rx Confirmed 12/25/19] venlafaxine 150 mg tablet,extended release 24 hr See Rx Instructions .ROUTE .COMPLEX #90 tab 12/18/19 [Rx Confirmed 12/25/19] ciprofloxacin HCl 500 mg tablet 500 mg PO BID #20 tab 12/25/19 [Rx Confirmed 12/25/19] metronidazole 500 mg tablet 500 mg PO Q8H #30 tab 12/25/19 [Rx Confirmed 12/25/19] Assessment & Plan Problems 1. Diverticulosis of large intestine without hemorrhage K57.30 2. LLQ abdominal pain R10.32 Plan - Dr. Manoj Clayton MD The patient has history of diverticulitis. The patient is having left lower quadrant pain and it has not gone away with moxifloxacin. I have prescribed her Cipro and Flagyl and I have ordered a CT scan with p.o. and IV contrast for left lower quadrant pain. If her CT scan is normal I will perform colonoscopy. 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 Patient would have to be bridged with Lovenox Manoj Clayton MD Pager: [facility] [address] [place] [address], [address] [place] [address] Office: Orders Orders: Abdomen/Pelvis WITH Contrast Today R10.32 Medications New: ciprofloxacin HCl 500 mg PO BID 20 tabs 0RF metronidazole (Flagyl) 500 mg PO Q8H 30 tabs 0RF 12/25/19 1423 <Electronically signed by Manoj manzo MD> Date _ Manoj Clayton MD cc: Dr. Ziyad Sexton MD ~* Signed Intake Vital Signs 12/25/19 Height 5 ft 4 in 12/25/19 Weight: 243 lb 12/25/19 BP 122/82 H 12/25/19 Blood Pressure Location Rt brachial 12/25/19 Position Sitting 12/25/19 Respiration 18 12/25/19 Pulse 89 12/25/19 Pulse Source Monitor 12/25/19 Temp 97.8 F 12/25/19 Temp Source Temporal 12/25/19 Pulse Oximetry (%) 97 12/25/19 Oxygen Delivery Method room air 12/25/19 BMI 39.4 Intake Visit Reasons: Diverticulosis Chief Complaint: Diverticulitis/c-scope consult Instructor Creeler Required: No Is patient in pain?: Yes Allergies morphine Allergy (Verified 12/25/19 13:59) Rash oxycodone HCl [From OxyContin] Allergy (Verified 12/25/19 13:59) Vomiting Penicillins [PCN] Allergy (Verified 12/25/19 13:59) Swelling ARTIFICIAL SWEETENER Allergy (Uncoded 08/29/18 09:25) Swelling Medications levothyroxine 100 mcg tablet 100 mcg PO DAILY@0600 #60 tab 10/18/18 [Rx Confirmed 12/25/19] sumatriptan succinate 25 mg tablet See Rx Instructions PO .COMPLEX #10 tab 0 11/23/18 [Rx Confirmed 12/25/19] comprs.stocking,thigh,long,med See Dose Instructions .ROUTE .MEDSUPPLY #12 ea 01/11/19 [Rx Confirmed 12/25/19] calcium citrate 315 mg-vitamin D3 250 unit tablet 1 tab PO DAILY 01/18/19 [History Confirmed 12/25/19] cholecalciferol (vitamin D3) 1,250 mcg (50,000 unit) capsule 50,000 unit PO QWEEK 01/18/19 [History Confirmed 12/25/19] cholecalciferol (vitamin D3) 50 mcg (2,000 unit) capsule 2,000 unit PO DAILY 01/18/19 [History Confirmed 12/25/19] multivitamin with minerals 2 tab PO TID 01/18/19 [History Confirmed 12/25/19] amitriptyline 25 mg tablet 25 mg PO DAILY 02/16/19 [History Confirmed 12/25/19] warfarin 6 mg tablet 6 mg PO QDAY #90 tab 03/21/19 [Rx Confirmed 12/25/19] warfarin 3 mg tablet 3 mg PO DAILY #150 tab 04/25/19 [Rx Confirmed 12/25/19] warfarin 2 mg tablet 2 mg PO DAILY #90 tab 05/29/19 [Rx Confirmed 12/25/19] atorvastatin 10 mg tablet See Rx Instructions .ROUTE .COMPLEX #60 tab 08/03/19 [Rx Confirmed 12/25/19] cyclobenzaprine 10 mg tablet 10 mg PO QHS PRN #30 tab 08/20/19 [Rx Confirmed 12/25/19] albuterol sulfate 90 mcg/actuation aerosol inhaler 2 puff INHALATION Q6H PRN #8.5 g 08/29/19 [Rx Confirmed 12/25/19] furosemide 20 mg tablet 20 mg PO DAILY PRN #90 tab 09/05/19 [Rx Confirmed 12/25/19] venlafaxine 150 mg tablet,extended release 24 hr See Rx Instructions .ROUTE .COMPLEX #90 tab 12/18/19 [Rx Confirmed 12/25/19] ciprofloxacin HCl 500 mg tablet 500 mg PO BID #20 tab 12/25/19 [Rx Confirmed 12/25/19] metronidazole 500 mg tablet 500 mg PO Q8H #30 tab 12/25/19 [Rx Confirmed 12/25/19] PFS Medical History (Updated 12/25/19 @ 14:[address] Manoj Clayton MD) Diverticulosis (Chronic) Latonya syndrome (Chronic) Hypothyroid (Chronic) Fibromyalgia (Chronic) Abdominal pain (Acute) Acid reflux (Acute) Anxiety and depression (Acute) Arthritis (Acute) Asthma (Acute) Constipation (Acute) Diarrhea (Acute) History of back problems (Acute) History of cellulitis (Acute) Nausea (Acute) Sleep apnea (Acute) Surgical History H/O oophorectomy (Acute) History of (Acute) History of appendectomy (Acute) History of tonsillectomy (Acute) S/P KWADWO (total abdominal hysterectomy) (Acute) Family History Mother Diabetes Heart disease Breast cancer Father Heart disease COPD (chronic obstructive pulmonary disease) Grandmother Cancer Grandfather Cancer Sister Lupus Social History (Updated 12/25/19 @ 14:[address] Manoj Clayton MD) Smoking Status: Never smoker alcohol intake: never substance use type: does not use caffeine: Yes what type of physical activity do you participate in: walking seatbelt use: always do you feel safe at home: Yes additional social history: [employer] HPI HPI HPI: DARRIUS GUILLAUME, is a 59 F who presents to the office today for HPI HPI HPI: DARRIUS GUILLAUME, is a 59 F who presents to the office today for left lower quadrant pain and history of diverticulitis. The patient reports for the last 3-week she has had pain in the left lower quadrant which was more severe than her last episode of diverticulitis. Patient reports that her bowel movements alternate between diarrhea and regular bowel movements. Patient does not note a ny blood. She does have pain with flatulence. She has been on moxifloxacin for 5 days. ROS General General: Yes weight change and fatigue; no appetite, colon cancer, breast cancer or weakness HEENT HEENT: Yes difficulty swallowing; no eye injury, eye surgery, swollen glands or hoarseness Endo Endocrine: Yes thyroid disease; no diabetes mellitus, thyroid cancer, Hair loss, heat intolerance or cold intolerance Skin Skin: No rash or changing moles Breast Breast: No left breast lump, right breast lump, nipple discharge, breast pain, abnormal mammogram, abnormal US or breast enlargement Musc Musculoskeletal: Yes back problems and arthritis; no rheumatoid arthritis, gout or joint pain Cardio Cardiovascular: No murmur, pacemaker, heart disease, atrial fibrillation, high blood pressure, heart attack, heart stent, palpitations, shortness of breat with exertion or chest pain Psych Psychiatric: Yes depression and anxiety; no hearing voices Resp Respiratory: Yes shortness of breath, Yes sleep apnea, No cough, No COPD, Yes asthma, No emphysema, No wheezing Gastro Gastrointestinal: Yes abdominal pain, Yes nausea or vomiting, Yes diarrhea, Yes constipation, No blood in stool, Yes acid reflux, Yes hemorrhoids, No ulcers, No gallbladder problem, No black,tarry stools Edis Hematologic: Yes blood thinners, No blood disorders, No bleeding, No anemia, Yes blood clots Neuro Neurologic: No system reviewed and no additional complaints, except as docu, No as per HPI, No abnormal walking, No abnormal hearing, No abnormal movements, No abnormal speech, No behavioral changes, No burning sensations, No confusion, No seizure-like activity, No unsteadiness, No dizziness, No localized weakness, No frequent falls, No headache(s), No lack of coordination, No loss of vision, No memory loss, Yes numbness, No other visual disturbances, No radiating pain, No restless legs, No sensory deficit, No fainting, Yes tingling, No tremor(s), No weakness, No other Exam Const General: cooperative Orientation: alert, oriented x3 Chest Breast Palpation: No nipple discharge Resp Effort & Inspection: normal respiratory effort Auscultation: clear to auscultation bilaterally Cardio Rate: regular rate Rhythm: regular rhythm Heart Sounds: no murmurs GI Inspection: non-distended Palpation: soft, nontender Assessment & Plan Problems 1. Diverticulosis of large intestine without hemorrhage K57.30 2. LLQ abdominal pain R10.32 Plan The patient has history of diverticulitis. The patient is having left lower quadrant pain and it has not gone away with moxifloxacin. I have prescribed her Cipro and Flagyl and I have ordered a CT scan with p.o. and IV contrast for left lower quadrant pain. If her CT scan is normal I will perform colonoscopy. 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 Patient would have to be bridged with Lovenox Manoj Clayton MD Pager: [facility] [address] [place], [place] [address], [address] [place] [address] Office: I have re-examined the patient. There are no clinical changes since date of exam.
[2020-01-08 08:47] VITALS: BP 113/59; BP 133/69; PULSE 77; RESP 16; TEMP 37.2; O2SAT 100
--- NOTE | 2020-01-08 08:47 | OP.COLON_ITS ---
Patient Name: Nicolette Brink Procedure Date: 01/08/2020 8:11 AM Date of : 1960 Age: 59 Procedure: Colonoscopy Indications: Abdominal pain in the left lower quadrant, Follow-up of diverticulitis Providers: Manoj Clayton MD Referring MD: Ziyad Sexton MD Medicines: Monitored Anesthesia Care Patient Profile: This is a 59 year old female. Refer to note in patient chart for documentation of history and physical. Last Colonoscopy: several years ago. Complications: No immediate complications. Estimated blood loss: Minimal. Procedure: Pre-Anesthesia Assessment: - Prior to the procedure, a History and Physical was performed, and patient medications and allergies were reviewed. The patient's tolerance of previous anesthesia was also reviewed. The risks and benefits of the procedure and the sedation options and risks were discussed with the patient. All questions were answered, and informed consent was obtained. Prior Anticoagulants: The patient has taken Lovenox (enoxaparin), last dose was 1 day prior to procedure. After reviewing the risks and benefits, the patient was deemed in satisfactory condition to undergo the procedure. After I obtained informed consent, the scope was passed under direct vision. Throughout the procedure, the patient's blood pressure, pulse, and oxygen saturations were monitored continuously. The colonoscope was introduced through the anus and advanced to the cecum, identified by appendiceal orifice and ileocecal valve. The colonoscopy was performed without difficulty. The patient tolerated the procedure well. The quality of the bowel preparation was good. Scope In: 8:28:24 AM Scope Withdrawal Time 0 hours 7 minutes 19 seconds Scope Out: 8:41:29 AM Total Procedure Duration Time 0 hours 13 minutes 5 seconds Findings: The entire examined colon appeared normal on direct and retroflexion views. Impression: - The entire examined colon is normal on direct and retroflexion views. - No specimens collected. Recommendation: - Discharge patient to home. - Resume previous diet. - Continue present medications. - Post-Procedure Resumption of Anticoagulants: Restart warfarin today PO adjustment by primary physician to maintain INR per protocol. - Repeat colonoscopy in 10 years for screening purposes. Procedure Code(s): --- Professional --- 37171, Colonoscopy, flexible; diagnostic, including collection of specimen(s) by brushing or washing, when performed (separate procedure) Diagnosis Code(s): --- Professional --- R10.32, Left lower quadrant pain K57.32, Diverticulitis of large intestine without perforation or abscess without bleeding CPT copyright 2017 [employer]. All rights reserved. The codes documented in this report are preliminary and upon mortician investigator review may be revised to meet current compliance requirements. Manoj Clayton MD 01/08/2020 8:46:17 AM This report has been signed electronically. Number of Addenda: 0 Note Initiated On: 01/08/2020 8:11 AM
--- NOTE | 2020-01-08 08:47 | OP.CCLET_ITS ---
01/08/2020 Ziyad Sexton MD [address] [place] [address] [place] [address] Re : Colonoscopy procedure for Nicolette Brink Dear Dr. Sexton This procedure was performed on Wednesday, January 08, 2020. My impressions and recommendations are as follows: Impressions : - The entire examined colon is normal on direct and retroflexion views. - No specimens collected. Recommendations : - Discharge patient to home. - Resume previous diet. - Continue present medications. - Post-Procedure Resumption of Anticoagulants: Restart warfarin today PO adjustment by primary physician to maintain INR per protocol. - Repeat colonoscopy in 10 years for screening purposes. My findings are described in the full procedure note, which is enclosed. If I can be of further assistance, please feel free to contact me at Doctor phone number(s): , Work: . Sincerely, Manoj Clayton MD 01/08/2020 8:46:17 AM This report has been signed electronically.
[2020-01-08 08:50] VITALS: BP 115/65; BP 133/69; PULSE 73; RESP 16; O2SAT 100
[2020-01-08 08:55] VITALS: BP 123/63; BP 133/69; PULSE 70; RESP 16; O2SAT 98
[2020-01-08 09:00] VITALS: BP 104/68; BP 133/69; PULSE 72; RESP 16; TEMP 37.2; O2SAT 98
[2020-01-08 09:18] VITALS: BP 133/69
== END 2020-01-08 09:45 | disposition home or self-care (01) ==
LOC: EN 07:17 → AC 07:17
PROVIDERS: Anesthesiology; PCP Internal Medicine; Referring Provider Internal Medicine; Visit Provider Surgery
PROC: 0DJD8ZZ Inspection of Lower Intestinal Tract, Via Natural or Artificial Opening Endoscopic (ICD-10-PCS; CPT 45378; principal; 2020-01-08 08:25)
DX: K57.32 Diverticulitis of large intestine without perforation or abscess without bleeding (principal); R10.32 Left lower quadrant pain; Z79.01 Long term (current) use of anticoagulants; Z79.899 Other long term (current) drug therapy; Z88.0 Allergy status to penicillin; Z88.5 Allergy status to narcotic agent; K57.30 Diverticulosis of large intestine without perforation or abscess without bleeding
CPT/HCPCS: 45378; 87635; C9803; J7120; J2405; U0003

== ENCOUNTER 2020-06-23 10:25 | Emergency (ER) | payer MEDICARE, SELFPAY ==
[2020-06-23 10:26] VITALS: BP 151/87; PULSE 98; RESP 18; TEMP 36.2; O2SAT 98; BMI 38.0
--- NOTE | 2020-06-23 10:35 | EKG12_ITS ---
Test Reason : DIZZINESS Blood Pressure : / mmHG Vent. Rate : 078 BPM Atrial Rate : 078 BPM P-R Int : 134 ms QRS Dur : 080 ms QT Int : 424 ms P-R-T Axes : 051 048 050 degrees QTc Int : 483 ms Normal sinus rhythm Low voltage QRS Prolonged QT Abnormal ECG Confirmed by PRINCE LEDESMA, MIA ([id number]), movie editor JAYLYN RODRIGUEZ ([id number]) on 06/25/2020 10:59:33 AM Referred By: KEE Confirmed By:MIA MORRISON MD
--- NOTE | 2020-06-23 10:35 | CT_ITS ---
STUDY: CT BRAIN WITHOUT CONTRAST REASON FOR EXAM: Female, 59 years old. dizzy RADIATION DOSAGE (If Supplied By Facility): CTDIvol = ( 44.99 ) mGy, DLP = ( 812.98 ) mGycm TECHNIQUE: Transaxial CT imaging of the brain was performed without administration of intravenous contrast material. Individualized dose optimization techniques were used for this CT. COMPARISON: No relevant priors. FINDINGS: Normal soft tissue structures. Normal calvarium. Normal size ventricles and extra-axial spaces for the patient''s age. Normal white matter tracts of the cerebral hemispheres. Normal basal ganglia and thalami. Normal brainstem. Normal cerebellum. There is no intracranial hemorrhage. There are no findings of an acute ischemic infarction. Normal visualized paranasal sinuses. CT/Brain/Head without Contrast IMPRESSION: Normal unenhanced CT scan of the brain. Electronically Signed: Rosario Bella MD at 11:21 EST Tel , Service support ,
--- NOTE | 2020-06-23 10:39 | ED.VIS.GEN ---
History of Present Illness Chief Complaint: Dizziness Informant: Patient Onset: Yesterday Context: Gradual Onset Timing: Intermittent Current Severity: Mild Maximum Severity: Moderate Narrative: The patient is a 59-year-old female who presents to the emergency department multiple complaints. She states for the past 2 or 3 days, she has had a dull ache in her left arm. She thought that it might be muscular. 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 She states that it actually felt better last night. However, she was in bed. She began to get double vision which she states she had before with migraines. Shortly thereafter, she got very vertiginous and felt sick to her stomach. She had an episode of emesis. She states she was able to sleep, but then today she just felt off. The patient is on Coumadin for history of DVT and coagulopathy. She denies any history of stroke. She denies any exertional chest pain. She denies any fevers or chills. Prior similar symptoms: No Recent Illness/Hospitalization: No Past Medical History - Allergies and Home Meds Allergies/Adverse Reactions: Allergies morphine Allergy (Verified 12/31/19 14:10) Rash oxycodone HCl [From OxyContin] Allergy (Verified 12/31/19 14:10) Vomiting Penicillins [PCN] Allergy (Verified 12/31/19 14:10) Swelling ARTIFICIAL SWEETENER Allergy (Uncoded 08/29/18 09:25) Swelling Primary Care Physician: Ziyad Sexton MD [Primary Care Provider] - Prior records reviewed: Yes Past Medical History: - - Fibromyalgia, DVT, hypertension Surgical History: no surgical history Smoking Status: Never smoker - Family History Paternal Family History: Family History (Last Reviewed 12/25/19 @ 13:49 by Jolie Larry) Mother Diabetes Heart disease Breast cancer Father Heart disease COPD (chronic obstructive pulmonary disease) Grandmother Cancer Grandfather Cancer Sister Lupus Family History: Reports: No pertinent history Review of Systems General: Denies: Chills, Fever, Sweats Eyes: Denies: Visual changes - bilaterally, Diplopia ENT: Denies: Rhinorrhea, Sore throat Cardiovascular: Denies: Chest pain, Palpitations Respiratory: Denies: Dyspnea, Cough, Dyspnea on exertion Gastrointestinal: Reports: Nausea. Denies: Abdominal pain, Vomiting, Diarrhea, Melena, Hematochezia Genitourinary: Denies: Dysuria, Hematuria, Frequency Musculoskeletal: Denies: Back pain, Extremity Pain Skin: Denies: Rash, Wounds Neurological: Reports: Headache. Denies: Weakness, Numbness Physical Exam Vital Signs/Narrative: Vital Signs Temp Pulse Resp BP Pulse Ox 06/23/20 10:26 97.1 F L 98 18 151/87 H 98 Inital Vital Signs reviewed: Yes General: Well nourished, Well developed, No Acute Distress Head: Normocephalic, Atraumatic Eyes: Perrl, EOMI ENT: Moist mucous membranes, No rhinorrhea Neck: Supple, Nontender Cardiovascular: Regular rate, Regular rhythm, No murmurs Respiratory: No distress, CTA bilaterally, Chest nontender Abdomen: Soft, Nontender, Nondistended, Normal bowel sounds Back: Nontender, Normal Inspection Extremities: Nontender, No edema Skin: Normal color, No rash Neurological: Alert, Oriented x3, Cranial nerves II-XII grossly intact, Normal Strength, Normal Sensation Psychological: Normal affect, Normal Mood Diagnostic/Tx/Re-eval Chest X-Ray - ED: 1 View, Read by ED Physician, Normal, Heart, Lungs, Mediastinum, Bony Structures, No Acute Disease Clinical Impression(s) from Imaging Studies Brain CT 06/23/20 10:35 IMPRESSION: Normal unenhanced CT scan of the brain. Electronically Signed: Rosario Bella MD at 11:21 EST Tel , Service support , Abnormal Lab Results 06/23/20 06/23/20 06/23/20 10:40 10:40 10:40 WBC 6.0 RBC 4.37 Hgb 13.1 Hct 41.2 MCV 94.3 MCH 30.0 MCHC 31.8 L RDW Std Deviation 42.3 RDW Coeff of Jeyson 12.1 Plt Count 241 MPV 9.2 Immature Gran % (Auto) 0.300 Neut % (Auto) 58.9 Lymph % (Auto) 30.8 [place] % (Auto) 7.1 Eos % (Auto) 2.4 Baso % (Auto) 0.5 Absolute Neuts (auto) 3.5 Absolute Lymphs (auto) 1.83 Nucleated RBC % 0 PT INR Sodium 138 Potassium 3.5 Chloride 103 Carbon Dioxide 30.0 Anion Gap 5 BUN 17 Creatinine 0.91 Estim Creat Clear Calc 56.77 Est GFR (MDRD) Af Amer 81 Est GFR (MDRD) Non-Af 67 BUN/Creatinine Ratio 18.7 Glucose 82 Calcium 9.2 Total Bilirubin 0.60 AST 21 ALT 32 Alkaline Phosphatase 115 Troponin I < 0.015 B-Natriuretic Peptide 2.0 Total Protein 8.2 Albumin 4.1 Globulin 4.1 Albumin/Globulin Ratio 1.0 06/23/20 10:40 WBC RBC Hgb Hct MCV MCH MCHC RDW Std Deviation RDW Coeff of Jeyson Plt Count MPV Immature Gran % (Auto) Neut % (Auto) Lymph % (Auto) [place] % (Auto) Eos % (Auto) Baso % (Auto) Absolute Neuts (auto) Absolute Lymphs (auto) Nucleated RBC % PT 21.9 H INR 2.0 Sodium Potassium Chloride Carbon Dioxide Anion Gap BUN Creatinine Estim Creat Clear Calc Est GFR (MDRD) Af Amer Est GFR (MDRD) Non-Af BUN/Creatinine Ratio Glucose Calcium Total Bilirubin AST ALT Alkaline Phosphatase Troponin I B-Natriuretic Peptide Total Protein Albumin Globulin Albumin/Globulin Ratio - Rhythm Strip Rhythm Strip: Sinus Rhythm Rate: 80 Ectopy: None - EKG Initial EKG Interpretation: Sinus Rhythm, No Acute Injury Pattern Prior: Unchanged - Medical Decision Making The patient symptoms do seem most consistent with vertigo. She has had some nonspecific arm pain. It is not related to exertion. She states towards the end of the day after she has been lifting and doing physical labor. She has normal pulses. There is no swelling. Her compartments are soft. Her major complaint was of the dizziness. She states she got it last night and it was very severe. Today was improved, but she was still mildly nauseated. With her history of anticoagulation, I did obtain noncontrast head CT. This is unremarkable for acute process. Screening labs were obtained were unremarkable. EKG was sinus rhythm without evidence of acute ischemia. There was normal cardiac enzymes. My suspicion for acute coronary syndrome is very low with this patient. I do feel that this is vertigo. I do feel that she can safely be treated as an outpatient. I will prescribe her with meclizine. She will be discharged home. Impression 1. Vertigo ED Disposition - Plan for ED Patient: Instructions: ED Vertigo, Unspecified Prescriptions: Meclizine HCl 25 mg PO TID PRN PRN #30 tab PRN Reason: Vertigo Prescription Printed Referrals: Ziyad Sexton MD [Primary Care Provider] -
[2020-06-23] MEDS: Ondansetron 4 MG/2 ML Vial IV (10:44)
[2020-06-23 10:51] LABS: Absolute Lymphocyte Count 1.83 X10^3/uL (0.83-4.51); Absolute Neutrophil Count 3.5 X10^3/uL (2.0-7.7); Basophil# 0.03 X10^3/uL; Basophil% 0.5 % (0-1); Eosinophil# 0.14 X10^3/uL; Eosinophils% 2.4 % (0-5); Hematocrit 41.2 % (37-47); Hemoglobin 13.1 g/dL (12.0-15.0); Lymphocyte # 1.83 X10^3/ul (4.0); Lymphocyte % 30.8 % (19-41); Mean Corp Hgb Conc 31.8 g/dL (32-36); Mean Corpuscular Volume 94.3 fL (81-99); Mean Platelet Vol. 9.2 fl (6.2-12.0); Monocyte# 0.42 X10^3/uL; Monocyte% 7.1 % (0-10); NRBC Flagged by Analyzer 0 % (0-5); Neutrophil # 3.51 X10^3/uL (2.7-7.7); Neutrophil % 58.9 % (47-70); Platelet Count 241 K/mm3 (150-450); RBC Distribution Width CV 12.1 % (11.6-14.6); RBC Distribution Width SD 42.3 fl (35.1-43.9); Red Blood Count 4.37 M/mm3 (4.2-5.4)
--- NOTE | 2020-06-23 11:00 | RAD_ITS ---
STUDY: X-RAY CHEST REASON FOR EXAM: Female, 59 years old. sob TECHNIQUE: Single AP portable view of the chest. COMPARISON: None. FINDINGS: The lungs are clear and expanded. There is no demonstrated pleural abnormality. Normal size heart. Normal mediastinum and royer. Normal visualized pulmonary arteries. Normal visualized aortic arch and descending thoracic aorta. Normal visualized thoracic spine. Normal visualized ribs, clavicles, and shoulders. There is no demonstrated abnormality of the visualized soft tissue structures of the upper abdomen. RAD/Chest 1 View (Portable) IMPRESSION: Normal x-ray examination of the chest. Electronically Signed: Rosario Bella MD at 12:10 EST Tel , Service support ,
[2020-06-23 11:09] LABS: AST(SGOT) 21 U/L (15-37); Alanine Aminotransfer ALT/SGPT 32 U/L (13-56); Albumin, Serum 4.1 g/dL (3.2-5.0); Alkaline Phosphatase 115 U/L (45-117); Anion Gap 5 (5-15); BUN 17 mg/dL (7-18); BUN/Creat Ratio 18.7 RATIO (10-20); Calcium,Total 9.2 mg/dL (8.5-10.1); Chloride 103 mmol/L (98-107); Creatinine, Serum 0.91 mg/dL (0.55-1.02); EST Glomerular Filtration Rate 67 mL/min (>60); Est Glom Filt Rate - Afr Amer 81 mL/min (>60); Estimated Creatinine Clearance 56.77 ml/min; Globulin 4.1 g/dL (2.2-4.2); Glucose 82 mg/dL (74-106); Potassium 3.5 mmol/L (3.5-5.1); Protein, Total 8.2 g/dL (6.4-8.2); Sodium Level 138 mmol/L (136-145)
[2020-06-23 11:17] LABS: Prothrombin Time (Protime)PT. 21.9 SECONDS (11.7-14.9)
[2020-06-23 11:35] VITALS: BP 114/78; PULSE 95; RESP 16; O2SAT 96
== END 2020-06-23 11:49 | disposition home or self-care (01) ==
LOC: ED 11:16
PROVIDERS: Emergency Provider Emergency Medicine; PCP Internal Medicine
DX: R42 Dizziness and giddiness (principal); M79.7 Fibromyalgia; I10 Essential (primary) hypertension; Z79.899 Other long term (current) drug therapy; Z79.01 Long term (current) use of anticoagulants; Z86.718 Personal history of other venous thrombosis and embolism; R06.02 Shortness of breath
CPT/HCPCS: 70450; 71045; 80053; 83880; 84484; 85025; 85610; 93005; 96361; 96374; 99284; J2405

== ENCOUNTER → 2021-01-07 13:39 | Outpatient (CLI) | payer MEDICARE, SELFPAY | PROVIDERS: PCP Internal Medicine; Referring Provider Physician Assistant; Visit Provider Physician Assistant | DX: U07.1 COVID-19 (principal); Z11.52 Encounter for screening for COVID-19; R05 Cough | CPT/HCPCS: 87635; U0005; U0003 ==

== ENCOUNTER 2021-01-14 18:49 | Outpatient (CLI) | payer MEDICARE, SELFPAY ==
[2021-01-14] MEDS: 0.9% Saline Lock 10 ML Syringe IV (18:53)
[2021-01-14 18:56] VITALS: BP 116/62; PULSE 83; RESP 16; TEMP 36.9; O2SAT 93; BMI 38.0
--- NOTE | 2021-01-14 19:14 | NURSING ---
[facility] CALLED AGAIN TO BRING MED UP.
[2021-01-14 20:05] VITALS: BP 114/60; PULSE 89; RESP 16; TEMP 37.6; O2SAT 96
[2021-01-14 21:01] VITALS: BP 109/58; PULSE 80; RESP 16; TEMP 37.6; O2SAT 93
== END 2021-01-14 21:03 | disposition home or self-care (01) ==
LOC: MS3OUT 18:50 → MS3 18:50
PROVIDERS: PCP Internal Medicine; Referring Provider Nurse Practitioner Adult Health; Visit Provider Nurse Practitioner Adult Health
DX: Z23 Encounter for immunization (principal); U07.1 COVID-19
CPT/HCPCS: J7050; M0243; A4216; Q0244

== ENCOUNTER → 2021-02-20 16:28 | Outpatient (CLI) | payer MEDICARE, SELFPAY ==
[2021-02-20 17:32] LABS: Erythrocyte Sedimentation Rate 45 mm/hr (0-30)
[2021-02-20 17:49] LABS: Vitamin B12 476 pg/mL (211-911)
[2021-02-20 17:54] LABS: ALB/GLOB Ratio 0.8 RATIO (0.9-2.4); AST(SGOT) 25 U/L (15-37); Alanine Aminotransfer ALT/SGPT 32 U/L (13-56); Albumin, Serum 3.3 g/dL (3.2-5.0); Alkaline Phosphatase 98 U/L (45-117); Anion Gap 4 (5-15); BUN 14 mg/dL (7-18); BUN/Creat Ratio 18.2 RATIO (10-20); CRP 4.08 mg/L (0.0-3.0); Calcium,Total 8.9 mg/dL (8.5-10.1); Chloride 105 mmol/L (98-107); Creatinine, Serum 0.77 mg/dL (0.55-1.02); EST Glomerular Filtration Rate 81 mL/min (>60); Est Glom Filt Rate - Afr Amer 98 mL/min (>60); Globulin 4.2 g/dL (2.2-4.2); Glucose 97 mg/dL (74-106); Potassium 3.8 mmol/L (3.5-5.1); Protein, Total 7.5 g/dL (6.4-8.2); Sodium Level 139 mmol/L (136-145); Thyroid Stim Hormone (TSH) 4.33 uIU/mL (0.358-3.74)
== END ==
PROVIDERS: PCP Internal Medicine; Visit Provider Psychiatry & Neurology Neurology
DX: R13.10 Dysphagia, unspecified (principal); G47.00 Insomnia, unspecified
CPT/HCPCS: 36415; 80053; 82607; 84443; 85652; 86140

== ENCOUNTER → 2021-02-25 12:21 | Outpatient (CLI) | payer MEDICARE, SELFPAY ==
--- NOTE | 2021-02-25 12:36 | MRI_ITS ---
STUDY: MRI BRAIN WITHOUT CONTRAST REASON FOR EXAM: Female, 60 years old. WEAKNESS, MEMORY LOSS, INSOMNIA TECHNIQUE: Standardized multiplanar fat and water weighted pulse sequences were obtained. COMPARISON: 10/14/2017 FINDINGS: Normal size of the ventricles and extra-axial spaces for the patient''s age. Normal white matter tracts of the supratentorial brain. There is no evidence for recent intracranial ischemia or other cause of cytotoxic edema on diffusion weighted imaging (DWI). Normal T2* images of the brain without demonstrated susceptibility artifact. There is no demonstrated hemosiderin stain. Thin section coronal T2-weighted images through the temporal lobes demonstrate no evidence of hippocampal atrophy. Normal bilateral basal ganglia. Normal thalami. There is no extra-axial fluid accumulation. Normal flow voids within the major intracranial circulation suggesting patency by spin echo criteria. Normal sella turcica, pituitary gland, infundibular stalk, optic chiasm and hypothalamus. Normal tectal plate and pineal gland. Normal midbrain, amanda and medulla. Normal cerebellum. Normal basal cisterns. Normal bilateral temporal bones. Normal bilateral internal auditory canals. No demonstrated orbital abnormality, within the constraints of a routine brain study. Normal visualized paranasal sinuses. Normal calvarium and skull base. Normal visualized soft tissue structures. Normal visualized upper cervical spine. MRI/Brain without Contrast IMPRESSION: Normal unenhanced MRI of the brain. Electronically Signed: Simone Stringer MD at 14:35 EST Tel , Service support ,
== END ==
PROVIDERS: PCP Internal Medicine; Visit Provider Psychiatry & Neurology Neurology
DX: R53.1 Weakness (principal); R41.3 Other amnesia; G47.00 Insomnia, unspecified
CPT/HCPCS: 70551

== ENCOUNTER → 2021-04-14 10:03 | Outpatient (CLI) | payer MEDICARE, SELFPAY ==
[2021-04-14 12:28] LABS: Absolute Lymphocyte Count 2.02 X10^3/uL (0.83-4.51); Absolute Neutrophil Count 3.3 X10^3/uL (2.0-7.7); Basophil# 0.02 X10^3/uL; Basophil% 0.3 % (0-1); Eosinophil# 0.13 X10^3/uL; Eosinophils% 2.2 % (0-5); Hematocrit 38.6 % (37-47); Hemoglobin 12.5 g/dL (12.0-15.0); Lymphocyte # 2.02 X10^3/ul (0.83-4.51); Lymphocyte % 34.2 % (19-41); Mean Corp Hgb Conc 32.4 g/dL (32-36); Mean Corpuscular Hgb 30.1 pg (27.0-32.0); Mean Platelet Vol. 9.4 fl (6.2-12.0); Monocyte# 0.42 X10^3/uL; Monocyte% 7.1 % (0-10); NRBC Flagged by Analyzer 0 % (0-5); Neutrophil % 55.9 % (47-70); Platelet Count 207 K/mm3 (150-450); RBC Distribution Width CV 11.4 % (11.6-14.6); RBC Distribution Width SD 38.9 fl (35.1-43.9); Red Blood Count 4.15 M/mm3 (4.2-5.4); White Blood Count 5.9 K/mm3 (4.4-11.0)
[2021-04-14 12:56] LABS: ALB/GLOB Ratio 0.9 RATIO (0.9-2.4); AST(SGOT) 25 U/L (15-37); Alanine Aminotransfer ALT/SGPT 27 U/L (13-56); Albumin, Serum 3.5 g/dL (3.2-5.0); Alkaline Phosphatase 98 U/L (45-117); Anion Gap 6 (5-15); BUN 16 mg/dL (7-18); BUN/Creat Ratio 24.5 RATIO (10-20); Calcium,Total 9.6 mg/dL (8.5-10.1); Chloride 103 mmol/L (98-107); Creatinine, Serum 0.65 mg/dL (0.55-1.02); EST Glomerular Filtration Rate 98 mL/min (>60); Est Glom Filt Rate - Afr Amer 118 mL/min (>60); Globulin 4.1 g/dL (2.2-4.2); Glucose 79 mg/dL (74-106); Potassium 3.9 mmol/L (3.5-5.1); Protein, Total 7.6 g/dL (6.4-8.2); Rheumatoid Factor < 10.0 IU/mL (<15); Sodium Level 140 mmol/L (136-145)
[2021-04-14 13:15] LABS: Hepatitis B Surface Antibody Non-Reactive; Hepatitis B Surface Antigen Non-Reactive (Nonreactive); Hepatitis C Antibody Non-Reactive (Nonreactive)
[2021-04-15 13:07] LABS: SJOGREN'S Anti-SS-A test < 0.2 AI (0.0-0.9); SJOGREN'S Anti-SS-B test < 0.2 AI (0.0-0.9)
[2021-04-16 10:13] LABS: CCP IgG Antibodies 8 units (0-19)
[2021-04-16 11:48] LABS: ANTINUCLEAR ANTIBODIES DIRECT Negative (Negative)
== END ==
PROVIDERS: PCP Internal Medicine; Referring Provider Internal Medicine Rheumatology; Visit Provider Internal Medicine Rheumatology
DX: M06.4 Inflammatory polyarthropathy (principal); M79.7 Fibromyalgia; M19.041 Primary osteoarthritis, right hand; M47.892 Other spondylosis, cervical region; F41.9 Anxiety disorder, unspecified; G43.909 Migraine, unspecified, not intractable, without status migrainosus; J45.909 Unspecified asthma, uncomplicated; E03.9 Hypothyroidism, unspecified; I87.2 Venous insufficiency (chronic) (peripheral); D68.2 Hereditary deficiency of other clotting factors; K57.90 Diverticulosis of intestine, part unspecified, without perforation or abscess without bleeding; G47.33 Obstructive sleep apnea (adult) (pediatric)
CPT/HCPCS: 36415; 80053; 85025; 86038; 86200; 86235; 86431; 86706; 86803; 87340

== ENCOUNTER 2021-07-06 14:50 | Outpatient (CLI) | payer MEDICARE, SELFPAY ==
[2021-07-06 15:57] LABS: Absolute Neutrophil Count 3.5 X10^3/uL (2.0-7.7); Basophil# 0.03 X10^3/uL; Basophil% 0.5 % (0-1); Eosinophil# 0.11 X10^3/uL; Eosinophils% 1.9 % (0-5); Hematocrit 39.5 % (37-47); Hemoglobin 13.4 g/dL (12.0-15.0); Lymphocyte % 28.1 % (19-41); Mean Corp Hgb Conc 33.9 g/dL (32-36); Mean Corpuscular Hgb 31.5 pg (27.0-32.0); Mean Corpuscular Volume 92.7 fL (81-99); Monocyte# 0.43 X10^3/uL; Monocyte% 7.6 % (0-10); NRBC Flagged by Analyzer 0 % (0-5); Neutrophil # 3.51 X10^3/uL (2.7-7.7); Neutrophil % 61.7 % (47-70); Platelet Count 249 K/mm3 (150-450); RBC Distribution Width CV 13.2 % (11.6-14.6); RBC Distribution Width SD 43.8 fl (35.1-43.9); Red Blood Count 4.26 M/mm3 (4.2-5.4); White Blood Count 5.7 K/mm3 (4.4-11.0)
[2021-07-06 16:17] LABS: ALB/GLOB Ratio 0.9 RATIO (0.9-2.4); AST(SGOT) 22 U/L (15-37); Alanine Aminotransfer ALT/SGPT 26 U/L (13-56); Albumin, Serum 3.6 g/dL (3.2-5.0); Alkaline Phosphatase 93 U/L (45-117); Anion Gap 4 (5-15); BUN 12 mg/dL (7-18); BUN/Creat Ratio 14.6 RATIO (10-20); Calcium,Total 9.4 mg/dL (8.5-10.1); Chloride 109 mmol/L (98-107); Creatinine, Serum 0.82 mg/dL (0.55-1.02); EST Glomerular Filtration Rate 75 mL/min (>60); Est Glom Filt Rate - Afr Amer 91 mL/min (>60); Globulin 3.9 g/dL (2.2-4.2); Glucose 87 mg/dL (74-106); Potassium 4.2 mmol/L (3.5-5.1); Protein, Total 7.5 g/dL (6.4-8.2); Sodium Level 141 mmol/L (136-145)
== END 2021-07-06 23:59 | disposition home or self-care (01) ==
PROVIDERS: PCP Internal Medicine; Referring Provider Internal Medicine Rheumatology; Visit Provider Internal Medicine Rheumatology
DX: M06.4 Inflammatory polyarthropathy (principal); D68.2 Hereditary deficiency of other clotting factors; M79.7 Fibromyalgia; M19.041 Primary osteoarthritis, right hand; M47.892 Other spondylosis, cervical region; F41.9 Anxiety disorder, unspecified; G43.909 Migraine, unspecified, not intractable, without status migrainosus; E03.9 Hypothyroidism, unspecified; I87.2 Venous insufficiency (chronic) (peripheral); K57.90 Diverticulosis of intestine, part unspecified, without perforation or abscess without bleeding; G47.33 Obstructive sleep apnea (adult) (pediatric); Z79.899 Other long term (current) drug therapy
CPT/HCPCS: 36415; 80053; 85025

== ENCOUNTER → 2021-09-03 | Outpatient (CLI) | payer MEDICARE, SELFPAY ==
[2021-09-03 15:20] LABS: Absolute Lymphocyte Count 1.65 X10^3/uL (0.83-4.51); Absolute Neutrophil Count 3.7 X10^3/uL (2.0-7.7); Basophil# 0.02 X10^3/uL; Basophil% 0.3 % (0-1); Eosinophil# 0.08 X10^3/uL; Eosinophils% 1.4 % (0-5); Hematocrit 38.7 % (37-47); Hemoglobin 12.7 g/dL (12.0-15.0); Lymphocyte # 1.65 X10^3/ul (0.83-4.51); Mean Corp Hgb Conc 32.8 g/dL (32-36); Mean Corpuscular Hgb 31.3 pg (27.0-32.0); Mean Corpuscular Volume 95.3 fL (81-99); Mean Platelet Vol. 9.8 fl (6.2-12.0); Monocyte% 6.8 % (0-10); NRBC Flagged by Analyzer 0 % (0-5); Neutrophil # 3.72 X10^3/uL (2.7-7.7); Neutrophil % 63.2 % (47-70); Platelet Count 220 K/mm3 (150-450); RBC Distribution Width CV 13.2 % (11.6-14.6); RBC Distribution Width SD 45.3 fl (35.1-43.9); Red Blood Count 4.06 M/mm3 (4.2-5.4); White Blood Count 5.9 K/mm3 (4.4-11.0)
[2021-09-03 16:22] LABS: AST(SGOT) 22 U/L (15-37); Alanine Aminotransfer ALT/SGPT 26 U/L (13-56); Albumin, Serum 3.7 g/dL (3.2-5.0); Alkaline Phosphatase 93 U/L (45-117); Anion Gap 5 (5-15); BUN 13 mg/dL (7-18); BUN/Creat Ratio 18.1 RATIO (10-20); Calcium,Total 9.2 mg/dL (8.5-10.1); Chloride 107 mmol/L (98-107); Creatinine, Serum 0.72 mg/dL (0.55-1.02); EST Glomerular Filtration Rate 88 mL/min (>60); Est Glom Filt Rate - Afr Amer 106 mL/min (>60); Globulin 3.7 g/dL (2.2-4.2); Glucose 77 mg/dL (74-106); Potassium 4.2 mmol/L (3.5-5.1); Protein, Total 7.4 g/dL (6.4-8.2); Sodium Level 140 mmol/L (136-145)
[2021-09-03 20:43] LABS: Cholesterol 206 mg/dL (200); High Density Lipoprotein 49 mg/dL; Triglycerides 198 mg/dL; Very Low Density Lipoprotein 40 mg/dL (5-40)
== END | disposition home or self-care (01) ==
LOC: MTLAB 11:28
PROVIDERS: Physician Assistant; PCP Internal Medicine; Referring Provider Internal Medicine Rheumatology; Visit Provider Internal Medicine Rheumatology
DX: M06.4 Inflammatory polyarthropathy (principal); Z79.899 Other long term (current) drug therapy; M79.7 Fibromyalgia; M19.041 Primary osteoarthritis, right hand; M47.892 Other spondylosis, cervical region; M25.511 Pain in right shoulder; G43.909 Migraine, unspecified, not intractable, without status migrainosus; J45.909 Unspecified asthma, uncomplicated; E03.9 Hypothyroidism, unspecified; I87.2 Venous insufficiency (chronic) (peripheral)
CPT/HCPCS: 36415; 80053; 80061; 84443; 85025

== ENCOUNTER → 2021-09-16 | Outpatient (CLI) | payer MEDICARE, SELFPAY ==
--- NOTE | 2021-09-16 11:43 | BI_ITS ---
MAMMOGRAPHY - BILATERAL SCREENING REASON FOR EXAM: Female, 60 years old. Routine annual screening examination. PERTINENT HISTORY: Mother with breast cancer. TECHNIQUE: Digital bilateral breast ang (3D mammographic acquisition) in the CC and MLO projections. 2-D mediolateral oblique (MLO) and craniocaudad (CC) views of both breasts were obtained. CAD: Full Field Digital Mammography with Computer Added Detection was performed. COMPARISON: Comparison is made with prior study of 06/21/2019 and 04/21/2018. FINDINGS: Breast Composition: The breasts are almost entirely fatty. There are no dominant masses or suspicious calcifications. Stable calcifications in the upper anterior lateral aspect of the right breast. Stable benign-appearing bilateral axillary lymph nodes. No other significant abnormalities are identified. There has been no significant change since the prior study. BI/SCRN MAMM (CAD)W/ANG BILAT IMPRESSION: Stable bilateral screening mammogram. Yearly follow-up mammogram recommended. (A) ASSESSMENT CATEGORY: BIRADS Category 2: Benign. A letter regarding these results will be sent to the patient by the facility within 30 days. Approximately 10% of breast cancers are not detected by mammography. A normal mammogram should not delay biopsy of a clinically suspicious abnormality. [id number] Electronically Signed: Anant Neff MD at 14:36 EDT ,
== END | disposition home or self-care (01) ==
LOC: OPBI 11:42
PROVIDERS: PCP Internal Medicine; Visit Provider Physician Assistant
DX: Z12.31 Encounter for screening mammogram for malignant neoplasm of breast (principal); Z80.3 Family history of malignant neoplasm of breast
CPT/HCPCS: 77063; 77067

== ENCOUNTER → 2022-04-20 | Outpatient (CLI) | payer MEDICARE, SELFPAY ==
[2022-04-20 14:29] LABS: Thyroid Stim Hormone (TSH) 6.47 uIU/mL (0.358-3.74)
== END | disposition home or self-care (01) ==
LOC: LAB 13:16
PROVIDERS: PCP Internal Medicine; Referring Provider Physician Assistant; Visit Provider Physician Assistant
DX: E03.9 Hypothyroidism, unspecified (principal)
CPT/HCPCS: 36415; 84443

== ENCOUNTER → 2022-06-29 | Outpatient (CLI) | payer MEDICARE, SELFPAY ==
[2022-06-29 15:02] LABS: Absolute Lymphocyte Count 1.83 X10^3/uL (0.83-4.51); Absolute Neutrophil Count 2.6 X10^3/uL (2.0-7.7); Basophil# 0.03 X10^3/uL; Basophil% 0.6 % (0-1); Eosinophil# 0.12 X10^3/uL; Eosinophils% 2.4 % (0-5); Hematocrit 38.3 % (37-47); Hemoglobin 12.4 g/dL (12.0-15.0); Lymphocyte # 1.83 X10^3/ul (0.83-4.51); Lymphocyte % 36.8 % (19-41); Mean Corp Hgb Conc 32.4 g/dL (32-36); Mean Corpuscular Hgb 29.9 pg (27.0-32.0); Mean Corpuscular Volume 92.3 fL (81-99); Mean Platelet Vol. 9.8 fl (6.2-12.0); Monocyte# 0.41 X10^3/uL; Monocyte% 8.2 % (0-10); NRBC Flagged by Analyzer 0 % (0-5); Neutrophil # 2.56 X10^3/uL (2.7-7.7); Neutrophil % 51.6 % (47-70); Platelet Count 210 K/mm3 (150-450); RBC Distribution Width CV 11.7 % (11.6-14.6); RBC Distribution Width SD 39.6 fl (35.1-43.9); Red Blood Count 4.15 M/mm3 (4.2-5.4)
[2022-06-29 15:39] LABS: Vitamin B12 686 pg/mL (211-911); Vitamin D,25 Hydroxy 25.1 ng/mL
[2022-06-29 15:47] LABS: ALB/GLOB Ratio 0.9 RATIO (0.9-2.4); AST(SGOT) 20 U/L (15-37); Alanine Aminotransfer ALT/SGPT 24 U/L (13-56); Albumin, Serum 3.6 g/dL (3.2-5.0); Alkaline Phosphatase 99 U/L (45-117); Anion Gap 7 (5-15); BUN 15 mg/dL (7-18); BUN/Creat Ratio 22.4 RATIO (10-20); Calcium,Total 9.2 mg/dL (8.5-10.1); Chloride 108 mmol/L (98-107); Cholesterol 195 mg/dL (200); Creatinine, Serum 0.67 mg/dL (0.55-1.02); EST Glomerular Filtration Rate 95 mL/min (>60); Est Glom Filt Rate - Afr Amer 115 mL/min (>60); Globulin 3.8 g/dL (2.2-4.2); Glucose 86 mg/dL (74-106); High Density Lipoprotein 49 mg/dL; Magnesium 2.1 mg/dL (1.6-2.6); Protein, Total 7.4 g/dL (6.4-8.2); Sodium Level 141 mmol/L (136-145); Thyroid Stim Hormone (TSH) 0.01 uIU/mL (0.358-3.74); Triglycerides 94 mg/dL; Very Low Density Lipoprotein 19 mg/dL (5-40)
== END | disposition home or self-care (01) ==
LOC: BIMLAB 13:27
PROVIDERS: PCP Internal Medicine; Referring Provider Nurse Practitioner Family; Visit Provider Nurse Practitioner Family
DX: E53.8 Deficiency of other specified B group vitamins (principal); E55.9 Vitamin D deficiency, unspecified; E66.9 Obesity, unspecified; E03.9 Hypothyroidism, unspecified; F41.1 Generalized anxiety disorder; R25.2 Cramp and spasm; F41.0 Panic disorder [episodic paroxysmal anxiety]
CPT/HCPCS: 36415; 80053; 80061; 82306; 82607; 83735; 84443; 85025

== ENCOUNTER → 2022-08-02 | Outpatient (CLI) | payer MEDICARE, SELFPAY | END | disposition home or self-care (01) | LOC: SL 20:27 | PROVIDERS: PCP Internal Medicine; Referring Provider Nurse Practitioner Acute Care; Visit Provider Nurse Practitioner Acute Care | DX: G47.33 Obstructive sleep apnea (adult) (pediatric) (principal) | CPT/HCPCS: 95811 ==

== ENCOUNTER → 2022-09-09 | Outpatient (CLI) | payer MEDICARE, SELFPAY ==
--- NOTE | 2022-09-09 08:55 | BD_ITS ---
STUDY: DUAL ENERGY X-RAY ABSORPTIOMETRY / DXA REASON FOR EXAM: Female, 61 years old. Screening TECHNIQUE: Bone Mineral Density (BMD) measurements of lumbar spine and bilateral hips were obtained. COMPARISON: None. FINDINGS: Lumbar Spine (L1-L4): g/cm2 (1.009) / T-score (-0.3) / Z-score (1.3) Findings are suggestive of normal bone density with a low fracture risk. Left Femur Total: g/cm2 (0.917) / T-score (-0.2) / Z-score (0.9) Left Femoral Neck: g/cm2 (0.686) / T-score (-1.5) / Z-score (-0.1) Right Femur Total: g/cm2 (0.890) / T-score (-0.4) / Z-score (0.7) Right Femoral Neck: g/cm2 (0.639) / T-score (-1.9) / Z-score (-0.5) BD/Dexa Bone Density Study IMPRESSION: The patient is considered osteopenic as outlined below according to [employer] Organization (WHO) criteria with a low fracture risk. Reference Information: The T-score is the number of standard deviations above or below the standard which is normal for young adults at their peak bone mineral density. The World Health Organization (WHO) interprets the T-scores as follows: Above -1 Normal bone density Between -1 and -2.5 Osteopenia Equal to / or below -2.5 Osteoporosis As a practical clinical guideline, osteopenia may be graded as follows: Mild -1 through -1.5 Moderate -1.6 through -2.0 Severe -2.1 through -2.4 The Z-score is the number of standard deviations above or below age-matched controls. A Z-score of less than -1.5 would be considered abnormal. References: 1. NIH Osteoporosis and Related Bone Diseases www osteo.org 2. International Society for Clinical Densitometry www iscd.org 3. National Osteoporosis Foundation www nof.org Electronically Signed: Anant Neff MD at 9:41 EDT ,
== END | disposition home or self-care (01) ==
LOC: OPBD 08:25
PROVIDERS: PCP Internal Medicine; Referring Provider Nurse Practitioner Family; Visit Provider Nurse Practitioner Family
DX: Z78.0 Asymptomatic menopausal state (principal)
CPT/HCPCS: 77080

== ENCOUNTER → 2022-09-22 | Outpatient (CLI) | payer MEDICARE, SELFPAY ==
[2022-09-22 14:42] LABS: Thyroid Stim Hormone (TSH) 0.02 uIU/mL (0.358-3.74)
== END | disposition home or self-care (01) ==
LOC: BIMLAB 10:29
PROVIDERS: Nurse Practitioner Family; PCP Internal Medicine; Visit Provider Internal Medicine
DX: E03.9 Hypothyroidism, unspecified (principal)
CPT/HCPCS: 36415; 84443

== ENCOUNTER → 2022-09-23 | Outpatient (CLI) | payer MEDICARE, SELFPAY ==
--- NOTE | 2022-09-23 11:01 | RAD_ITS ---
INDICATION: Cough EXAMINATION/TECHNIQUE: X-RAY - XR Chest 2 Views COMPARISON: 06/23/2020 FINDINGS: LIFE-SUPPORT AND LINES: 1. None HEART AND VESSELS: The cardiac silhouette, pulmonary vasculature have normal appearance. No evidence of congestive failure. LUNGS AND PLEURAL SPACES: Minimal interstitial prominence in the infrahilar regions greater on the LEFT than RIGHT. No lobar consolidation, however subtle or mild interstitial infiltrate particularly at the LEFT base is a consideration. No pulmonary mass is noted. MEDIASTINUM AND HILAR REGIONS: No masses adenopathy noted. No areas of calcification. Visualized upper airway is normal in position. BONY ELEMENTS: No acute bony changes noted. RAD/Chest PA and Lateral IMPRESSION: 1. Perihilar and infrahilar interstitial prominence greater on the LEFT than RIGHT, early or subtle LEFT lower lobe interstitial infiltrate is a consideration. 2. No congestive failure, consolidation or effusion. Electronically Signed: Simone Herman MD at 19:32 EDT ,
== END | disposition home or self-care (01) ==
LOC: MTRAD 11:01
PROVIDERS: PCP Internal Medicine; Referring Provider Internal Medicine; Visit Provider Internal Medicine
DX: R05.9 Cough, unspecified (principal); R09.89 Other specified symptoms and signs involving the circulatory and respiratory systems
CPT/HCPCS: 71046

== ENCOUNTER → 2022-11-05 | Outpatient (CLI) | payer MEDICARE, SELFPAY ==
--- NOTE | 2022-11-05 15:20 | RAD_ITS ---
INDICATION: FU Chest X-ray EXAMINATION/TECHNIQUE: X-RAY - XR Chest 2 Views COMPARISON: September 23, 2022 FINDINGS: LINES/DEVICES: None. LUNGS: No consolidation, edema or effusion. No pneumothorax. MEDIASTINUM AND CARDIOVASCULAR STRUCTURES: Cardiac silhouette not enlarged. Central airways and mediastinal contour are unremarkable. BONES AND SOFT TISSUES: Unremarkable. RAD/Chest PA and Lateral IMPRESSION: No radiographic evidence of acute cardiopulmonary disease. Electronically Signed: Rangel Fleming, at 15:59 EDT ,
== END | disposition home or self-care (01) ==
LOC: MTRAD 15:18
PROVIDERS: PCP Internal Medicine; Referring Provider Internal Medicine; Visit Provider Internal Medicine
DX: R09.89 Other specified symptoms and signs involving the circulatory and respiratory systems (principal); R05.9 Cough, unspecified
CPT/HCPCS: 71046

== ENCOUNTER → 2022-11-17 | Outpatient (CLI) | payer MEDICARE, SELFPAY ==
[2022-11-17 12:23] LABS: Absolute Lymphocyte Count 1.53 X10^3/uL (0.83-4.51); Absolute Neutrophil Count 2.9 X10^3/uL (2.0-7.7); Basophil# 0.04 X10^3/uL; Basophil% 0.8 % (0-1); Eosinophil# 0.12 X10^3/uL; Eosinophils% 2.4 % (0-5); Hematocrit 38.2 % (37-47); Lymphocyte # 1.53 X10^3/ul (0.83-4.51); Mean Corp Hgb Conc 31.4 g/dL (32-36); Mean Corpuscular Volume 92.3 fL (81-99); Mean Platelet Vol. 10.2 fl (6.2-12.0); Monocyte# 0.37 X10^3/uL; Monocyte% 7.5 % (0-10); NRBC Flagged by Analyzer 0 % (0-5); Neutrophil # 2.86 X10^3/uL (2.7-7.7); Neutrophil % 58.1 % (47-70); Platelet Count 214 K/mm3 (150-450); RBC Distribution Width CV 12.4 % (11.6-14.6); RBC Distribution Width SD 41.8 fl (35.1-43.9); Red Blood Count 4.14 M/mm3 (4.2-5.4); White Blood Count 4.9 K/mm3 (4.4-11.0)
[2022-11-17 13:16] LABS: ALB/GLOB Ratio 0.8 RATIO (0.9-2.4); AST(SGOT) 21 U/L (15-37); Alanine Aminotransfer ALT/SGPT 26 U/L (13-56); Albumin, Serum 3.3 g/dL (3.2-5.0); Alkaline Phosphatase 104 U/L (45-117); Anion Gap 4 (5-15); BUN 12 mg/dL (7-18); Calcium,Total 8.9 mg/dL (8.5-10.1); Chloride 109 mmol/L (98-107); Creatinine, Serum 0.75 mg/dL (0.55-1.02); EST Glomerular Filtration Rate 83 mL/min (>60); Est Glom Filt Rate - Afr Amer 100 mL/min (>60); Glucose 85 mg/dL (74-106); Potassium 4.4 mmol/L (3.5-5.1); Protein, Total 7.3 g/dL (6.4-8.2); Sodium Level 140 mmol/L (136-145); Thyroid Stim Hormone (TSH) 0.06 uIU/mL (0.358-3.74)
== END | disposition home or self-care (01) ==
LOC: BIMLAB 09:57
PROVIDERS: PCP Internal Medicine; Visit Provider Internal Medicine
DX: F41.0 Panic disorder [episodic paroxysmal anxiety] (principal); E03.9 Hypothyroidism, unspecified
CPT/HCPCS: 36415; 80053; 84443; 85025

== ENCOUNTER → 2022-11-23 | Outpatient (CLI) | payer MEDICARE, SELFPAY | END | disposition home or self-care (01) | PROVIDERS: PCP Internal Medicine; Referring Provider Internal Medicine; Visit Provider Internal Medicine | DX: R00.2 Palpitations (principal) | CPT/HCPCS: 93225; 93226 ==

== ENCOUNTER → 2023-03-21 | Outpatient (CLI) | payer MEDICARE, SELFPAY ==
--- NOTE | 2023-03-21 10:20 | RAD_ITS ---
INDICATION: Chronic Back Pain. Radiculopathy EXAMINATION/TECHNIQUE: X-RAY - XR Spine Lumbar Min 4 Views COMPARISON: None. FINDINGS: VERTEBRAE: Preserved vertebral body height. No fracture. No spondylolisthesis. Preservation of the normal lumbar lordosis. DISCS: Mild marginal osteophyte formation and mild disc space narrowing particularly at L3-4 and L4-5. Facet arthropathy from L3 to S1 is noted. INCLUDED ABDOMEN: Included bowel gas pattern is non-obstructive. RAD/L/S Spine Min 4 Views IMPRESSION: 1. No evidence of lumbar spinal fracture or spondylolisthesis. 2. Diffuse lumbar spondylosis and facet arthrosis. Electronically Signed: Simone Herman MD at 22:42 EST ,
== END | disposition home or self-care (01) ==
LOC: RAD 10:16
PROVIDERS: PCP Internal Medicine; Referring Provider Internal Medicine; Visit Provider Internal Medicine
DX: M54.16 Radiculopathy, lumbar region (principal)
CPT/HCPCS: 72110

== ENCOUNTER → 2023-03-29 | Outpatient (CLI) | payer MEDICARE, SELFPAY ==
--- NOTE | 2023-03-29 12:09 | RAD_ITS ---
STUDY: X-RAY - RIGHT SHOULDER REASON FOR EXAM: Female, 62 years old. Shoulder pain. TECHNIQUE: 4 view(s) of the shoulder. COMPARISON: None. FINDINGS: Osteopenia. Mild arthrosis of the glenohumeral joint. Mild arthrosis of the AC joint. Small subacromial spur. Minimal sclerosis and cystic changes humeral head. Normal soft tissues. Normal visualized pulmonary apex. RAD/Shoulder min 2 Views IMPRESSION: Osteopenia with mild arthrosis of the glenohumeral and acromioclavicular joints with a small subacromial spur. Electronically Signed: Ky Covington MD at 12:36 EST ,
--- NOTE | 2023-03-29 12:15 | RAD_ITS ---
STUDY: X-RAY - LEFT SHOULDER REASON FOR EXAM: Female, 62 years old. Shoulder pain. TECHNIQUE: 4 view(s) of the shoulder. COMPARISON: None. FINDINGS: Osteopenia. Mild arthrosis of the glenohumeral joint. Mild arthrosis of the AC joint. Normal acromion. Minimal sclerosis and cystic changes humeral head. Normal soft tissues. Normal visualized pulmonary apex. RAD/Shoulder min 2 Views IMPRESSION: Osteopenia with mild arthrosis of the glenohumeral and acromioclavicular joints. Electronically Signed: Ky Covington MD at 12:37 EST ,
== END | disposition home or self-care (01) ==
LOC: RAD 12:07
PROVIDERS: PCP Internal Medicine; Referring Provider Anesthesiology; Visit Provider Anesthesiology
DX: M25.511 Pain in right shoulder (principal); M25.512 Pain in left shoulder
CPT/HCPCS: 73030

== ENCOUNTER → 2023-04-04 | Outpatient (CLI) | payer MEDICARE, SELFPAY ==
--- NOTE | 2023-04-04 11:00 | VDLE_ITS ---
Reason For Study: RLE PAin RIGHT LEFT CFV is compressible, spontaneous, phasic, CFV is compressible, spontaneous, phasic, competent and demonstrates normal competent, and demonstrates normal augmentation. augmentation. FV is compressible, spontaneous, phasic, competent and demonstrates normal augmentation. POP V is compressible, spontaneous, phasic, competent and demonstrates normal augmentation. T/P Trunk is compressible. PTV is compressible. RT PerV is compressible. Rt GSV HX vein stripping / ablation Multiple varicosities noted throughout RLE. Procedure This is a venous duplex using B-mode, color flow and spectral Doppler. Exam performed in department. The exam was diagnostic. A preliminary report was called and/or faxed to Dr. Nassar office. VL/Venous Duplex US, Unilateral Interpretation Summary There is no evidence of right lower extremity deep vein thrombosis. History of right great saphenous vein ablation Multiple varicosities noted throughout the right lower extremity Normal flow patterns left common femoral vein Ordering Physician: Sherwin Nassar Referring Physician: Ziyad Sexton Performed By: Ivan Smith RVT
== END | disposition home or self-care (01) ==
LOC: CVS 10:59
PROVIDERS: PCP Internal Medicine; Referring Provider Anesthesiology; Visit Provider Anesthesiology
DX: M79.605 Pain in left leg (principal)
CPT/HCPCS: 93971

== ENCOUNTER → 2023-05-25 | Outpatient (CLI) | payer MEDICARE, SELFPAY ==
--- NOTE | 2023-05-25 10:05 | RAD_ITS ---
STUDY: X-RAY - RIGHT FOOT CLINICAL: Female, 62 years old. PAIN TECHNIQUE: 3 view(s) of the foot. COMPARISON: None. FINDINGS: Normal talus, calcaneus, and tarsal bones. Normal visualized subtalar, talonavicular, calcaneocuboid, tarsal and tarsometatarsal articulations. Normal metatarsi. Normal metatarsophalangeal joint of the great toe. Normal tibial and fibular sesamoid bones. Normal interphalangeal joint of the great toe. Normal phalanges of the great toe. Normal second through fifth metatarsophalangeal joints. Intra-articular avulsion fracture involving the trochlea of the fifth proximal phalanx. The soft tissue structures are unremarkable. RAD/Foot min 3 Views IMPRESSION: Fracture fifth proximal phalanx Electronically Signed: Avel Gary MD at 0:01 EST ,
--- NOTE | 2023-05-25 10:05 | RAD_ITS ---
STUDY: X-RAY - LEFT FOOT CLINICAL: Female, 62 years old. PAIN TECHNIQUE: 3 view(s) of the foot. COMPARISON: None. FINDINGS: Normal talus, calcaneus, and tarsal bones. Normal visualized subtalar, talonavicular, calcaneocuboid, tarsal and tarsometatarsal articulations. Normal metatarsi. Normal metatarsophalangeal joint of the great toe. Normal tibial and fibular sesamoid bones. Normal interphalangeal joint of the great toe. Normal phalanges of the great toe. Normal second through fifth metatarsophalangeal joints. Normal interphalangeal joints and phalanges of the lesser toes. The soft tissue structures are unremarkable. RAD/Foot min 3 Views IMPRESSION: Normal x-ray examination of the foot. Electronically Signed: Avel Gary MD at 0:00 EST ,
== END | disposition home or self-care (01) ==
LOC: RAD 10:03
PROVIDERS: PCP Internal Medicine; Referring Provider Anesthesiology; Visit Provider Anesthesiology
DX: M79.671 Pain in right foot (principal); M79.672 Pain in left foot
CPT/HCPCS: 73630

== ENCOUNTER → 2023-06-08 | Outpatient (CLI) | payer MEDICARE, SELFPAY ==
[2023-06-08 11:52] LABS: Thyroid Stim Hormone (TSH) 1.45 uIU/mL (0.358-3.74)
== END | disposition home or self-care (01) ==
LOC: LAB 10:49
PROVIDERS: PCP Internal Medicine; Referring Provider Internal Medicine; Visit Provider Internal Medicine
DX: E03.9 Hypothyroidism, unspecified (principal)
CPT/HCPCS: 36415; 84443

== ENCOUNTER → 2023-06-20 | Outpatient (CLI) | payer MEDICARE, SELFPAY ==
[2023-06-20 12:48] LABS: Absolute Lymphocyte Count 1.65 X10^3/uL (0.83-4.51); Absolute Neutrophil Count 3.3 X10^3/uL (2.0-7.7); Basophil# 0.05 X10^3/uL; Basophil% 0.9 % (0-1); Eosinophil# 0.16 X10^3/uL; Eosinophils% 2.8 % (0-5); Hemoglobin 12.3 g/dL (12.0-15.0); Lymphocyte # 1.65 X10^3/ul (0.83-4.51); Lymphocyte % 29.2 % (19-41); Mean Corp Hgb Conc 31.5 g/dL (32-36); Mean Corpuscular Hgb 29.5 pg (27.0-32.0); Mean Corpuscular Volume 93.5 fL (81-99); Mean Platelet Vol. 9.4 fl (6.2-12.0); Monocyte# 0.46 X10^3/uL; Monocyte% 8.1 % (0-10); NRBC Flagged by Analyzer 0 % (0-5); Neutrophil # 3.32 X10^3/uL (2.7-7.7); Neutrophil % 58.8 % (47-70); Platelet Count 223 K/mm3 (150-450); RBC Distribution Width CV 12.2 % (11.6-14.6); Red Blood Count 4.17 M/mm3 (4.2-5.4); White Blood Count 5.7 K/mm3 (4.4-11.0)
[2023-06-20 12:59] LABS: ALB/GLOB Ratio 0.9 RATIO (0.9-2.4); AST(SGOT) 22 U/L (15-37); Alanine Aminotransfer ALT/SGPT 24 U/L (13-56); Albumin, Serum 3.4 g/dL (3.2-5.0); Alkaline Phosphatase 97 U/L (45-117); Anion Gap 2 (5-15); BUN 14 mg/dL (7-18); BUN/Creat Ratio 19.5 RATIO (10-20); Calcium,Total 9.2 mg/dL (8.5-10.1); Chloride 109 mmol/L (98-107); Creatinine, Serum 0.72 mg/dL (0.55-1.02); EST Glomerular Filtration Rate 87 mL/min (>60); Est Glom Filt Rate - Afr Amer 105 mL/min (>60); Globulin 3.9 g/dL (2.2-4.2); Glucose 88 mg/dL (74-106); Protein, Total 7.3 g/dL (6.4-8.2); Sodium Level 141 mmol/L (136-145)
== END | disposition home or self-care (01) ==
LOC: BIMLAB 09:54
PROVIDERS: PCP Internal Medicine; Referring Provider Internal Medicine; Visit Provider Internal Medicine
DX: E03.9 Hypothyroidism, unspecified (principal)
CPT/HCPCS: 36415; 80053; 85025

== ENCOUNTER → 2023-07-08 | Outpatient (CLI) | payer MEDICARE, SELFPAY ==
[2023-07-08 13:02] LABS: Amphetamine Urine VISTA NEGATIVE (<1000 ng/mL); Barbiturate Urine VISTA NEGATIVE (< 200 ng/mL); Benzodiazepine Urine VISTA NEGATIVE (< 200 ng/mL); Cocaine Urine VISTA NEGATIVE (< 300 ng/mL); Ecstacy Urine VISTA NEGATIVE (< 500 ng/mL); Methadone Urine VISTA NEGATIVE (< 300 ng/mL); PCP Urine VISTA NEGATIVE (< 25 ng/mL); THC Urine VISTA NEGATIVE (< 50 ng/mL); Vista UDS pH Range 5
== END | disposition home or self-care (01) ==
LOC: LAB 12:27
PROVIDERS: PCP Internal Medicine; Referring Provider Anesthesiology; Visit Provider Anesthesiology
DX: F11.20 Opioid dependence, uncomplicated (principal)
CPT/HCPCS: 80307

== ENCOUNTER → 2023-07-11 | Outpatient (CLI) | payer MEDICARE, SELFPAY ==
--- NOTE | 2023-07-11 12:15 | BI_ITS ---
MAMMOGRAPHY - BILATERAL SCREENING REASON FOR EXAM: Female, 62 years old. Routine annual screening examination. PERTINENT HISTORY: Mother with breast cancer. Remote needle breast biopsy. TECHNIQUE: Digital bilateral breast ang (3D mammographic acquisition) in the CC and MLO projections. 2-D mediolateral oblique (MLO) and craniocaudad (CC) views of both breasts were obtained. CAD: Full Field Digital Mammography with Computer Added Detection was performed. COMPARISON: Comparison is made with prior study dated September 16, 2021 and June 21, 2019. FINDINGS: Breast Composition: The breasts are almost entirely fatty. There are no dominant masses or suspicious calcifications. Stable calcifications seen in the upper anterior lateral aspect of the right breast. There is a 7.7 mm well-defined nodule in the upper lateral aspect of the right breast. Correlation with ultrasound is recommended. No other significant abnormalities are identified. BI/SCRN MAMM (CAD)W/ANG BILAT IMPRESSION: 7.7 mm well-defined nodule in the upper lateral aspect of the right breast as described. Correlation with ultrasound is recommended. ASSESSMENT CATEGORY: BIRADS Category 0: Incomplete. Need additional imaging evaluation. A letter regarding these results will be sent to the patient by the facility within 30 days. Approximately 10% of breast cancers are not detected by mammography. A normal mammogram should not delay biopsy of a clinically suspicious abnormality. [id number] Electronically Signed: Anant Neff MD at 13:36 EDT ,
== END | disposition home or self-care (01) ==
LOC: OPBI 12:15
PROVIDERS: PCP Internal Medicine; Referring Provider Internal Medicine; Visit Provider Internal Medicine
DX: Z12.31 Encounter for screening mammogram for malignant neoplasm of breast (principal); Z80.3 Family history of malignant neoplasm of breast
CPT/HCPCS: 77063; 77067

== ENCOUNTER → 2023-07-12 | Outpatient (CLI) | payer MEDICARE, SELFPAY ==
--- NOTE | 2023-07-12 13:32 | US_ITS ---
STUDY: ULTRASOUND BREAST - RIGHT REASON FOR EXAM: Female, 62 years old. Abnormal screening mammogram. TECHNIQUE: Axial and longitudinal images of the RIGHT breast were performed with a high resolution ultrasound transducer. # OF IMAGES: 9 COMPARISON: Comparison is made with prior mammogram dated July 11, 2023. FINDINGS: RIGHT Breast: The upper lateral aspect of the right breast was examined with ultrasound. There is a 6 mm x 7 mm x 7 mm well-defined hypoechoic nodule with a echogenic center suggestive of a benign-appearing lymph node. This is at the 9:00 position of the breast at 8 cm from nipple. US/Breast Limited Unilateral IMPRESSION: The mammographic abnormality corresponds to a 6 mm x 7 mm x 7 mm well-defined hypoechoic nodule with an echogenic center suggestive of a benign-appearing lymph node. ASSESSMENT CATEGORY: BIRADS Category 2: Benign. A letter regarding these results will be sent to the patient by the facility within 30 days. Electronically Signed: Anant Neff MD at 15:12 EDT ,
== END | disposition home or self-care (01) ==
PROVIDERS: PCP Internal Medicine; Referring Provider Internal Medicine; Visit Provider Internal Medicine
DX: R92.8 Other abnormal and inconclusive findings on diagnostic imaging of breast (principal)
CPT/HCPCS: 76642

== ENCOUNTER 2023-07-13 15:15 | Outpatient (RCR) | payer MEDICARE, SELFPAY ==
[2023-06-29 13:15] VITALS: BP 125/85; PULSE 79; RESP 18; TEMP 35.6; BMI 39.4
--- NOTE | 2023-06-29 13:46 | PN.PCM_ITS ---
History of Present Illness Date of Service: 06/29/23 Chief Complaint: Bilateral leg swelling History of Wound: Bilateral leg swelling no wounds Progress of Wound: Patient has no evidence of full-thickness ulceration bilateral extremity. She presents today for follow-up and evaluation to bilateral leg swelling to begin aggressive compression and mechanical pump authorization. Denies trauma. Denies constitutional symptoms. No pedal complaints at this time. Subjective Subjective Mrs. Blancas is a 62-year-old female presenting to wound care center today at [facility] for follow-up and evaluation to bilateral full- thickness ulceration and right foot pain. Patient was seen in private office with Dr. South where she was getting multilayer compression bandage to the b ilateral lower extremity. Patient admits to improvement to her swelling after using multiday compression wraps. She was seen by her primary doctor to see if she could be placed on Lasix but her primary doctor refused and recommended current medication regiment as well as not wanting the patient to get dizzy on her current medication when being put on Lasix. Her primary doctor agrees with compression wraps and mechanical pumps and we will move forward with that recommendation as well. Patient denies any open lesions or abrasions. She admits to improvement to her legs with class I compression wraps but is in a holding phase and would like better improvement. She denies trauma. Denies constitutional symptoms. No other pedal complaints at this time Objective Data Objective Data Vital Signs: Vital Signs Temp Pulse Resp BP O2 Del Method 96.1 F L 79 18 125/85 H Room Air 06/29/23 13:15 06/29/23 13:15 06/29/23 13:15 06/29/23 13:15 06/29/23 13:15 Oxygen Delivery Method Room Air Weight: 104.326 kg Body Mass Index (BMI) 39.4 Physical Exam Narrative Vascular: DP and PT pulses are faintly palpable secondary to swelling bilateral. Nonpitting edema appreciated to bilateral lower extremity. CFT is brisk. No erythema or proximal streaking is appreciated. Skin temperature gradient is warm to warm from proximal ankle to distal digits bilateral. No focal increase is appreciated. Neurological: Light touch and epicritic station intact. Dermatological: Nonpitting edema appreciated to the bilateral lower extremity. Webspaces 1-4 are clean dry and intact. Toenails 1 through 5 within normal limits. No open lesions or abrasions. No subcutaneous nodules. Musculoskeletal: Muscle strength is 5 out of 5 in all quadrants bilateral. No pain with calf compression. Debridement Note Debridement Note Post-Debridement Measurements and Additional Note: Post-Debridement Measurements/Treatment WC - Nurse 1 - General Ulcer Assessment Start: 06/29/23 13:14 Freq: Status: Active Protocol: [facility].LOWEXT Activity Type Activity Date Activity User E-sign Co-sign Detail Recorded Client Recorded Date Recorded By Document 06/29/23 13:15 KW Desktop 06/29/23 13:24 KW 06/29/23 13:15 WC - Today's Visit Information Type of service Initial Visit Arrival Mode Ambulatory Patient Identification Verified (Name & Yes ) Height and Weight Height 5 ft 4 in Weight 104.326 kg Weight in Pounds 230.0 lbs Weight Measurement Method Estimated by Patient Body Mass Index (BMI) 39.4 BMI Classification Obese BSA - Elvira 2.08 Vital Signs Temperature (97.8 F-99.1 F) 96.1 F L Temperature Source Temporal Pulse Rate (60-100) 79 Pulse Location Monitor Respiratory Rate (12-18) 18 Respiratory rate source Observation Oxygen Delivery Method Room Air Blood Pressure (90/60-120/80) 125/85 H Blood Pressure Mean (mm Hg) 98 Source Monitor Position Semi-Fowlers Blood Pressure Location Left Arm History Since Last Visit- (Skip if this is Patient's initial visit) Left Footwear Regular Shoe Right Footwear Regular Shoe Pain Scale: 0-10 Numeric Is Patient Pain Free? Yes Lower Extremity Assessment/ Foot Assessment/ Toe Nail Assessment Right -Posterior Tibial Doppler Inaudible -Dorsalis Pedis Palpable Yes -Dorsalis Pedis Doppler Monophasic -Hair Growth on Legs No -Hair Growth on Toes No -Temperature of Extremity Cool -Capillary Refill Less than 3 Seconds -Thick No -Discolored No -Deformed No -Improper Length & Hygeine No Left -Posterior Tibial Doppler Monophasic -Dorsalis Pedis Palpable Yes -Dorsalis Pedis Doppler Multiphasic -Hair Growth on Legs No -Hair Growth on Toes No -Temperature of Extremity Cool -Capillary Refill Less than 3 Seconds -Thick No -Discolored No -Deformed No -Improper Length & Hygeine No Communication Assessment Preferred language Lao Able to Read Yes Able to Write Yes Communication Tools None Caregiver Communication Skills No Impairment Impairment Right Hearing Abillity Normal Left Hearing Abillity Normal Visual Assistive Devices None Functional Assessment Recent Decline in Ability to Perform Denies Any Declines Culture/Scientologist/Catheterization Laboratory Technician Cultural/Scientologist Needs that may affect No Treatment Plan Would you allow our hospital operating cost clerk to No meet you for the purpose of spiritual/ emotional support? Catheterization Laboratory Technician to contact place of adventism No WC - Nurse 1 - General Ulcer Measurement Start: 06/29/23 13:14 Freq: Status: Active Protocol: Activity Type Activity Date Activity User E-sign Co-sign Detail Recorded Client Recorded Date Recorded By Document 06/29/23 13:15 KW Desktop 06/29/23 13:24 KW 06/29/23 13:15 Wound Center Nurse 1 Right Calf (cm) 50 Right Ankle (cm) 34 Left Calf (cm) 51.8 Left Ankle (cm) 35 WC - Nurse 2 - General Ulcer CM Notes Start: 06/29/23 13:14 Freq: Status: Active Protocol: Activity Type Activity Date Activity User E-sign Co-sign Detail Recorded Client Recorded Date Recorded By Document 06/29/23 13:42 JF Laptop 06/29/23 13:43 JF 06/29/23 13:42 Pain Scale: 0-10 Numeric Is Patient Pain Free? Yes Assessment/Plan Assessment/Plan (1) Lymphedema: CODE(S): I89.0 - Lymphedema, not elsewhere classified PLAN: Patient was examined and evaluated. All findings were discussed with the patient. All questions were answered to the patient's satisfaction. Patient was placed in bilateral 3M wraps for more aggressive compression. We will begin ordering venous and arterial studies to begin authorization for mechanical pumps. Also educated the patient that once she is discharged from the wound care center she will need to purchase CircAid multilayer wraps which she was understanding of. Patient states that she has noticed improvement to her right foot after being under multilayer compression from private office. Patient is grateful for her care. Follow-up at the wound care center with Dr. South in 1 week. (2) Other specified peripheral vascular diseases: CODE(S): I73.89 - Other specified peripheral vascular diseases (3) Pain and swelling of left lower extremity: CODE(S): M79.605 - Pain in left leg; M79.89 - Other specified soft tissue disorders (4) Pain and swelling of right lower leg: CODE(S): M79.661 - Pain in right lower leg; M79.89 - Other specified soft tissue disorders
[2023-07-06 14:36] VITALS: BP 159/87; PULSE 81; RESP 22; TEMP 36.4; BMI 39.4
--- NOTE | 2023-07-06 20:53 | PCM.WC.PN ---
History of Present Illness Date of Service: 07/06/23 Chief Complaint: Bilateral leg swelling History of Wound: Bilateral leg swelling no wounds Progress of Wound: Patient has no evidence of full-thickness ulceration bilateral extremity. She presents today for follow-up and evaluation to bilateral leg swelling to begin aggressive compression and mechanical pump authorization. Denies trauma. Denies constitutional symptoms. No pedal complaints at this time. Subjective Subjective Mrs. Blancas is a 62-year-old female presenting to wound care center today at [facility] for follow-up and evaluation to bilateral full-thickness ulceration and right foot pain. Patient was seen in private office with Dr. South where she was getting multilayer compression bandage to the bilateral lower extremity. Patient admits to improvement to her swelling after using multiday compression wraps. She was seen by her primary doctor to see if she could be placed on Lasix but her primary doctor refused and recommended current medication regiment as well as not wanting the patient to get dizzy on her current medication when being put on Lasix. Her primary doctor agrees with compression wraps and mechanical pumps and we will move forward with that recommendation as well. Patient denies any open lesions or abrasions. She admits to improvement to her legs with class I compression wraps but is in a holding phase and would like better improvement. She denies trauma. Denies constitutional symptoms. No other pedal complaints at this time Objective Data Objective Data Vital Signs: Vital Signs Temp Pulse Resp BP O2 Del Method 97.5 F L 81 22 H 159/87 H Room Air 07/06/23 14:36 07/06/23 14:36 07/06/23 14:36 07/06/23 14:36 06/29/23 13:15 Oxygen Delivery Method Room Air Weight: 104.326 kg Body Mass Index (BMI) 39.4 Physical Exam Narrative Vascular: DP and PT pulses are faintly palpable secondary to swelling bilateral. Nonpitting edema appreciated to bilateral lower extremity. CFT is brisk. No erythema or proximal streaking is appreciated. Skin temperature gradient is warm to warm from proximal ankle to distal digits bilateral. No focal increase is appreciated. Neurological: Light touch and epicritic station intact. Dermatological: Nonpitting edema appreciated to the bilateral lower extremity. Webspaces 1-4 are clean dry and intact. Toenails 1 through 5 within normal limits. No open lesions or abrasions. No subcutaneous nodules. Musculoskeletal: Muscle strength is 5 out of 5 in all quadrants bilateral. No pain with calf compression. Debridement Note Debridement Note Post-Debridement Measurements and Additional Note: Post-Debridement Measurements/Treatment WC - Nurse 1 - General Ulcer Assessment Start: 06/29/23 13:14 Freq: Status: Active Protocol: [facility]LOWEXT Activity Type Activity Date Activity User E-sign Co-sign Detail Recorded Client Recorded Date Recorded By Document 06/29/23 13:15 KW Desktop 06/29/23 13:24 KW Document 07/06/23 14:36 DL Desktop 07/06/23 14:38 DL 06/29/23 07/06/23 13:15 14:36 WC - Today's Visit Information Type of service Initial Visit Follow-up Visit (Physician/MUSIC CRITIC ) Arrival Mode Ambulatory Ambulatory Transfer Assistance None Patient Identification Verified (Name & Yes Yes ) Patient Requires Transmission-Based No Precautions Height and Weight Height 5 ft 4 in Weight 104.326 kg Weight in Pounds 230.0 lbs Weight Measurement Method Estimated by Patient Body Mass Index (BMI) 39.4 39.4 BMI Classification Obese Obese BSA - Elvira 2.08 Vital Signs Temperature (97.8 F-99.1 F) 96.1 F L 97.5 F L Temperature Source Temporal Temporal Pulse Rate (60-100) 79 81 Pulse Location Monitor Monitor Respiratory Rate (12-18) 18 22 H Respiratory rate source Observation Observation Oxygen Delivery Method Room Air Blood Pressure (90/60-120/80) 125/85 H 159/87 H Blood Pressure Mean (mm Hg) 98 111 Source Monitor Monitor Position Semi-Fowlers Blood Pressure Location Left Arm History Since Last Visit- (Skip if this is Patient's initial visit) Have you changed medications since your No last visit? Any new allergies or adverse reactions No Had a fall/change in ADL's that may No increase risk of falls Signs or symptoms of abuse and/or No neglect since last visit Have you been in the hospital since your No last visit? Has dressing in place as prescribed No Has compression in place as prescribed Yes Has offloadiing in place as prescribed N/A Experienced any changes in pain level or No management Left Footwear Regular Shoe Right Footwear Regular Shoe Pain Scale: 0-10 Numeric Is Patient Pain Free? Yes Yes Lower Extremity Assessment/ Foot Assessment/ Toe Nail Assessment Right -Posterior Tibial Doppler Inaudible -Dorsalis Pedis Palpable Yes -Dorsalis Pedis Doppler Monophasic -Hair Growth on Legs No -Hair Growth on Toes No -Temperature of Extremity Cool -Capillary Refill Less than 3 Seconds -Thick No -Discolored No -Deformed No -Improper Length & Hygeine No Left -Posterior Tibial Doppler Monophasic -Dorsalis Pedis Palpable Yes -Dorsalis Pedis Doppler Multiphasic -Hair Growth on Legs No -Hair Growth on Toes No -Temperature of Extremity Cool -Capillary Refill Less than 3 Seconds -Thick No -Discolored No -Deformed No -Improper Length & Hygeine No Communication Assessment Preferred language Irish Able to Read Yes Able to Write Yes Communication Tools None Caregiver Communication Skills No Impairment Impairment Right Hearing Abillity Normal Left Hearing Abillity Normal Visual Assistive Devices None Functional Assessment Recent Decline in Ability to Perform Denies Any Declines Culture/Episcopal/Liquor Department Manager Cultural/Episcopal Needs that may affect No Treatment Plan Would you allow our hospital database marketing manager to No meet you for the purpose of spiritual/ emotional support? Liquor Department Manager to contact place of oriental orthodox No WC - Nurse 1 - General Ulcer Measurement Start: 06/29/23 13:14 Freq: Status: Active Protocol: Activity Type Activity Date Activity User E-sign Co-sign Detail Recorded Client Recorded Date Recorded By Document 06/29/23 13:15 KW Desktop 06/29/23 13:24 KW Document 07/06/23 14:36 DL Desktop 07/06/23 14:38 DL 06/29/23 07/06/23 13:15 14:36 Wound Center Nurse 1 Right Calf (cm) 50 45.5 Right Ankle (cm) 34 32 Left Calf (cm) 51.8 45.2 Left Ankle (cm) 35 32.5 WC - Nurse 2 - General Ulcer CM Notes Start: 06/29/23 13:14 Freq: Status: Active Protocol: Activity Type Activity Date Activity User E-sign Co-sign Detail Recorded Client Recorded Date Recorded By Document 06/29/23 13:42 JF Laptop 06/29/23 13:43 JF Document 07/06/23 15:06 JF Laptop 07/06/23 15:06 JF 06/29/23 07/06/23 13:42 15:06 Pain Scale: 0-10 Numeric Is Patient Pain Free? Yes Yes WC - Nurse 3 - General Ulcer D/C NN Start: 06/29/23 13:14 Freq: Status: Active Protocol: Activity Type Activity Date Activity User E-sign Co-sign Detail Recorded Client Recorded Date Recorded By Document 06/29/23 10:00 STEFFANY [id number] 07/05/23 08:13 Document 07/06/23 15:29 KW Desktop 07/06/23 15:30 KW 06/29/23 07/06/23 10:00 15:29 Wound Care Center Nurse 3 BLE -Lotion applied to leg before Yes compression wrap -Multi-Layered Wrap Application Multi-Layer Comp - Bilat ($ ) -Tubular Bandage Double Layer -Size of Tubigrip Used Size F -Size F ($) 4 Pain Scale: 0-10 Numeric Is Patient Pain Free? Yes Yes WC - Visit Discharge Discharge Condition Stable Stable Ambulatory Status Ambulatory Ambulatory Transportation Private Auto Private Auto Medication Reconcilliation completed & Yes No provided to patient/care provider Clinical Summary of Care Provided Yes Yes Assessment/Plan Assessment/Plan (1) Lymphedema: CODE(S): I89.0 - Lymphedema, not elsewhere classified PLAN: Patient was examined and evaluated. All findings were discussed with the patient. All questions were answered to the patient satisfaction. Patient is doing well with her multilayer compression wraps. Patient will plan to see vascular for vascular testing on 07/07. After vascular testing will begin authorization for mechanical pumps so the patient may pump at home. Patient will follow-up with Dr. South at the wound care center in 2 week. (2) Other specified peripheral vascular diseases: CODE(S): I73.89 - Other specified peripheral vascular diseases (3) Pain and swelling of left lower extremity: CODE(S): M79.605 - Pain in left leg; M79.89 - Other specified soft tissue disorders (4) Pain and swelling of right lower leg: CODE(S): M79.661 - Pain in right lower leg; M79.89 - Other specified soft tissue disorders
--- NOTE | 2023-07-08 12:49 | VDLE_ITS ---
Reason For Study: BLE Pain RIGHT LEFT CFV is compressible, spontaneous, phasic, CFV is compressible, spontaneous, phasic, competent and demonstrates normal competent, and demonstrates normal augmentation. augmentation. FV is compressible, spontaneous, phasic, FV is compressible, spontaneous, phasic, competent and demonstrates normal competent and demonstrates normal augmentation. augmentation. POP V is compressible, phasic, and INCOMPETENT POP V is compressible, phasic, and for greater than 1.0 second. INCOMPETENT for greater than 1.0 second. T/P Trunk is compressible. T/P Trunk is compressible. PTV is compressible. PTV is compressible. RT PerV is compressible. LT PerV is compressible. SFJ is INCOMPETENT and measures 0.77 cm. SFJ is INCOMPETENT and measures 0.76 cm. SSV proximal calf is INCOMPETENT for greater GSV proximal thigh measures 0.39 x 0.38 cm. than 0.5 seconds and measures 0.35 x 0.36 cm. GSV at knee measures 0.32 x 0.37 cm. Perforating Vessel mid calf is INCOMPETENT for GSV INCOMPETENT throughout for greater than greater than 0.5 seconds and measures 0.30cm. 0.5 seconds. ASV proximal thigh is INCOMPETENT for Unable to test GSV for reflux from prox thigh greater than 0.5 seconds and measures 0.54 x to mid calf for reflux due to HX of 0.53 cm. ligations/stripping and vessel tortuosity. SSV at junction is INCOMPETENT for greater Perforating vessel appears tortuous than 0.5 seconds and measures 0.52 cm. SSV from junction to prox calf appears Perforating vessel at mid calf is tortuous. INCOMPETENT for greater than 0.5 seconds and Procedure measures 0.35 cm. Exam performed in department. This is a venous duplex using B-mode, color GSV is tortuous with many branches piercing flow and spectral Doppler. the fascia layer. Appears to be competent The exam was diagnostic. from mid thigh to prox calf. The study was technically difficult. SSV appears tortuous. Patient was scanned in reverse Trendelenburg position during reflux assessment. VL/Venous Duplex US - Thierry Extrem Interpretation Summary Deep veins of the bilateral lower extremities are patent and compressible segme ntally. There is no evidence of bilateral lower extremity deep vein thrombosis. The bilateral great saphenous veins appear patent and compressible segmentally. Positive for reflux in the right popliteal vein, saphenofemoral junction, small saphenous vein, and mid calf cotton weigher operator. Positive for reflux in the left popliteal vein, saphenofemoral junction, great saphenous vein throughout, thigh accessory saphenous vein, small saphenous vein, and mid calf cotton weigher operator. Ordering Physician: Fercho South Referring Physician: Ziyad Sexton Performed By: Ivan Smith RVT
--- NOTE | 2023-07-08 12:58 | ART_ITS ---
Reason For Study: PVD Procedure A bilateral lower extremity continuous wave Doppler with analog waveform analysis,segmental pressures,and ankle brachial indexes without exercise. Left Segmental Pressures Left brachial= 132mmHg. Left posterior tibial artery = 158mmHg. Left dorsalis pedis artery = 149mmHg. Left digit = 100 mmHg. The left posterior tibial artery waveforms are triphasic. The left dorsalis pedis waveforms are triphasic. Right Segmental Pressures Right brachial= 128mmHg. Right posterior tibial artery = 164mmHg. Right dorsalis pedis artery = 153mmHg. Right digit = 110 mmHg. The right posterior tibial artery waveforms are triphasic. The right dorsalis pedis waveforms are triphasic. Indices The right ankle brachial index by the posterior tibial artery is 1.24. The right ankle brachial index by the dorsalis pedis is 1.16. The right digital-brachial index is 0.83. The left ankle brachial index by the posterior tibial artery is 1.20. The left ankle brachial index by the dorsalis pedis is 1.13. The left digital-brachial index is 0.76. VL/Lower Ext Art Exam w/o Exercis Interpretation Summary Right ARIE 1.24, normal. TBI and Doppler/PVR waveforms of the right leg normal a t rest. Left ARIE 1.2, normal. TBI and Doppler/PVR waveforms of the left leg normal at r est. Ordering Physician: Fercho South Referring Physician: Ziyad Sexton Performed By: Ivan Smith, RVT
[2023-07-13 14:58] VITALS: BP 128/62; PULSE 73; RESP 16; TEMP 36.3; BMI 39.4
== END 2023-07-17 23:59 | disposition home or self-care (01) ==
LOC: WC 15:15
PROVIDERS: PCP Internal Medicine; Referring Provider Podiatrist Foot & Ankle Surgery; Visit Provider Podiatrist Foot & Ankle Surgery
DX: I89.0 Lymphedema, not elsewhere classified (principal); I73.89 Other specified peripheral vascular diseases; M79.605 Pain in left leg; M79.661 Pain in right lower leg; M79.89 Other specified soft tissue disorders
CPT/HCPCS: 29581; 93923; 93970; 99213; 99214; G0463

== ENCOUNTER 2023-08-10 08:00 | Outpatient (RCR) | payer MEDICARE, SELFPAY ==
[2023-07-18 00:51] VITALS: BP 128/62; PULSE 73; RESP 16; TEMP 36.3; BMI 39.4
[2023-07-20 09:08] VITALS: BP 141/78; PULSE 74; RESP 18; TEMP 36; BMI 39.4
--- NOTE | 2023-07-20 10:10 | PCM.WC.PN ---
History of Present Illness Date of Service: 07/20/23 Chief Complaint: Bilateral leg swelling History of Wound: Bilateral leg swelling no wounds Subjective Subjective Ms. Blancas is a 62-year-old female presenting to clinic today for follow-up and evaluation of bilateral lymphedema. Patient has gone her vascular and arterial studies and is awaiting interpretation of the results. She has tolerated her bilateral 3M wraps. She admits improved pain to both feet after purchasing new motion control shoes. Denies trauma. Denies any ulcerations or lesions. Denies constitutional symptoms. No other pedal complaints at this time. Objective Data Objective Data Vital Signs: Vital Signs Temp Pulse Resp BP 96.8 F L 74 18 141/78 H 07/20/23 09:08 07/20/23 09:08 07/20/23 09:08 07/20/23 09:08 Weight: 104.326 kg Body Mass Index (BMI) 39.4 Physical Exam Narrative Vascular: DP and PT pulses are faintly palpable secondary to swelling bilateral. Nonpitting edema appreciated to bilateral lower extremity. CFT is brisk. No erythema or proximal streaking is appreciated. Skin temperature gradient is warm to warm from proximal ankle to distal digits bilateral. No focal increase is appreciated. Neurological: Light touch and epicritic station intact. Dermatological: Nonpitting edema appreciated to the bilateral lower extremity. Webspaces 1-4 are clean dry and intact. Toenails 1 through 5 within normal limits. No open lesions or abrasions. No subcutaneous nodules. Musculoskeletal: Muscle strength is 5 out of 5 in all quadrants bilateral. No pain with calf compression. Debridement Note Debridement Note Post-Debridement Measurements and Additional Note: Post-Debridement Measurements/Treatment - Nurse 1 - General Ulcer Assessment Start: 07/20/23 09:08 Freq: Status: Active Protocol: [facility] Activity Type Activity Date Activity User E-sign Co-sign Detail Recorded Client Recorded Date Recorded By Document 07/20/23 09:08 Desktop 07/20/23 09:16 07/20/23 09:08 - Today's Visit Information Type of service Follow-up Visit (Physician/CAN LINE OPERATOR ) Arrival Mode Ambulatory Transfer Assistance None Patient Identification Verified (Name & Yes ) Height and Weight Body Mass Index (BMI) 39.4 BMI Classification Obese Vital Signs Temperature (97.8 F-99.1 F) 96.8 F L Temperature Source Temporal Pulse Rate (60-100) 74 Pulse Location Monitor Respiratory Rate (12-18) 18 Respiratory rate source Observation Blood Pressure (90/60-120/80) 141/78 H Blood Pressure Mean (mm Hg) 99 Source Monitor Position Sitting Blood Pressure Location Left Arm History Since Last Visit- (Skip if this is Patient's initial visit) Have you changed medications since your No last visit? Any new allergies or adverse reactions No Had a fall/change in ADL's that may No increase risk of falls Signs or symptoms of abuse and/or No neglect since last visit Have you been in the hospital since your No last visit? Has dressing in place as prescribed Yes Has compression in place as prescribed No Has offloadiing in place as prescribed No Experienced any changes in pain level or No management Pain Scale: 0-10 Numeric Is Patient Pain Free? Yes R foot -Description Aching -Intensity 6 -Duration (hours) Acute -Pain Behavior Withdrawal from Touch -Pain Aggravating Factors ADL's -Alleviating Factors/Interventions Medication -Effectiveness of Alleviating Factor/ Moderately Intervention effective WC - Nurse 1 - General Ulcer Measurement Start: 07/20/23 09:08 Freq: Status: Active Protocol: Activity Type Activity Date Activity User E-sign Co-sign Detail Recorded Client Recorded Date Recorded By Document 07/20/23 09:08 [employer] 07/20/23 09:16 07/20/23 09:08 Wound Center Nurse 1 Lower Limb Edema Present Yes Right Calf (cm) 46.4 Right Ankle (cm) 32.4 Left Calf (cm) 48 Left Ankle (cm) 32.5 WC - Nurse 2 - General Ulcer CM Notes Start: 07/20/23 09:08 Freq: Status: Active Protocol: Activity Type Activity Date Activity User E-sign Co-sign Detail Recorded Client Recorded Date Recorded By Document 07/20/23 09:24 Laptop 07/20/23 09:25 07/20/23 09:24 Pain Scale: 0-10 Numeric Is Patient Pain Free? Yes - Nurse 3 - General Ulcer D/C NN Start: 07/20/23 09:08 Freq: Status: Active Protocol: Activity Type Activity Date Activity User E-sign Co-sign Detail Recorded Client Recorded Date Recorded By Document 07/20/23 09:39 [employer] 07/20/23 09:41 07/20/23 09:39 Wound Care Center Nurse 3 Bilateral LE -Lotion applied to leg before Yes compression wrap -Multi-Layered Wrap Application Multi-Layer Comp - Bilat ($ ) Treatment Response Procedure Tolerated Well Pain Scale: 0-10 Numeric Is Patient Pain Free? Yes WC - Visit Discharge Discharge Condition Stable Ambulatory Status Ambulatory Transportation Private Auto Medication Reconcilliation completed & No provided to patient/care provider Clinical Summary of Care Provided Yes Assessment/Plan Assessment/Plan (1) Lymphedema: CODE(S): I89.0 - Lymphedema, not elsewhere classified PLAN: Patient was examined and evaluated. All findings were discussed with the patient. All questions were answered to the patient's satisfaction. After physical lamination the patient shows mild improvement with double layer 3M compression wraps. We will still move forward with ordering mechanical pumps as well as CircAid multilayer wraps to the patient's insurance. These will be a necessity since the patient suffers from stage II lymphedema and has failed class I compression wraps. The patient's venous study show evidence of reflux along all bilateral lower extremity venous systems in the legs. The patient's arterial studies are within normal limits and unremarkable at this time. It is my medical opinion that the patient will benefit from multilayer compression bandages as well as mechanical pumps to keep her bilateral lower extremity from swelling and ulceration which will reduce the likelihood of venous insufficiency ulcerations, infection to the legs, loss of limb and possibly loss of life. Patient will follow-up for nursing visit in 1 week. Follow-up at the wound care center with Dr. South in 2 week. (2) Pain and swelling of right lower leg: CODE(S): M79.661 - Pain in right lower leg; M79.89 - Other specified soft tissue disorders (3) Pain and swelling of left lower extremity: CODE(S): M79.605 - Pain in left leg; M79.89 - Other specified soft tissue disorders (4) Other specified peripheral vascular diseases: CODE(S): I73.89 - Other specified peripheral vascular diseases
[2023-07-27 08:26] VITALS: BP 126/53; PULSE 75; RESP 18; TEMP 36.3; BMI 39.4
[2023-08-03 09:26] VITALS: BP 131/85; PULSE 72; RESP 16; TEMP 36.5; BMI 39.4
--- NOTE | 2023-08-03 09:37 | PN.PCM_ITS ---
History of Present Illness Date of Service: 08/03/23 Chief Complaint: Bilateral leg swelling History of Wound: Bilateral leg swelling no wounds Subjective Subjective Mrs. Blancas is a 62-year-old female presenting to the wound care center today for follow-up evaluation of bilateral lymphedema. Patient has been talking with the compression/lymphedema pump company and will begin ordering her pumps and we will make payments through the company as she knows she needs them. She is waiting for her CircAid's to be delivered. She states stability to her bilateral legs. She denies any open lesions or abrasions. She is great for her care. Denies trauma. Denies constitutional symptoms. Other pedal complaints at this time. Objective Data Objective Data Vital Signs: Vital Signs Temp Pulse Resp BP O2 Del Method 97.7 F L 72 16 131/85 H Room Air 08/03/23 09:26 08/03/23 09:26 08/03/23 09:26 08/03/23 09:26 07/27/23 08:26 Oxygen Delivery Method Room Air Weight: 104.326 kg Body Mass Index (BMI) 39.4 Physical Exam Narrative Vascular: DP and PT pulses are faintly palpable secondary to swelling bilateral. Nonpitting edema appreciated to bilateral lower extremity. CFT is brisk. No erythema or proximal streaking is appreciated. Skin temperature gradient is warm to warm from proximal ankle to distal digits bilateral. No focal increase is appreciated. Neurological: Light touch and epicritic station intact. Dermatological: Nonpitting edema appreciated to the bilateral lower extremity. Webspaces 1-4 are clean dry and intact. Toenails 1 through 5 within normal limits. No open lesions or abrasions. No subcutaneous nodules. Musculoskeletal: Muscle strength is 5 out of 5 in all quadrants bilateral. No pain with calf compression. Debridement Note Debridement Note Post-Debridement Measurements and Additional Note: Post-Debridement Measurements/Treatment [facility] - Nurse 1 - General Ulcer Assessment Start: 07/20/23 09:08 Freq: Status: Active Protocol: [facility] Activity Type Activity Date Activity User E-sign Co-sign Detail Recorded Client Recorded Date Recorded By Document 07/20/23 09:08 GM Desktop 07/20/23 09:16 GM Document 07/27/23 08:26 KW Desktop 07/27/23 08:28 KW Document 08/03/23 09:26 CP Desktop 08/03/23 09:28 CP 07/20/23 07/27/23 08/03/23 09:08 08:26 09:26 WC - Today's Visit Information Type of service Follow-up Visit Nurse-only Follow-up Visit (Physician/OFFICE MANAGER EXECUTIVE ASSISTANT Visit (Physician/OFFICE MANAGER EXECUTIVE ASSISTANT ) ) Arrival Mode Ambulatory Ambulatory Ambulatory Transfer Assistance None Patient Identification Verified (Name & Yes Yes Yes ) Patient Requires Transmission-Based No Precautions Safety Precautions NA Height and Weight Body Mass Index (BMI) 39.4 39.4 39.4 BMI Classification Obese Obese Obese Vital Signs Temperature (97.8 F-99.1 F) 96.8 F L 97.3 F L 97.7 F L Temperature Source Temporal Temporal Temporal Pulse Rate (60-100) 74 75 72 Pulse Location Monitor Monitor Monitor Respiratory Rate (12-18) 18 18 16 Respiratory rate source Observation Observation Observation Oxygen Delivery Method Room Air Blood Pressure (90/60-120/80) 141/78 H 126/53 H 131/85 H Blood Pressure Mean (mm Hg) 99 77 100 Source Monitor Monitor Monitor Position Sitting Semi-Fowlers Sitting Blood Pressure Location Left Arm Left Forearm Left Arm History Since Last Visit- (Skip if this is Patient's initial visit) Have you changed medications since your No No No last visit? Any new allergies or adverse reactions No No No Had a fall/change in ADL's that may No No No increase risk of falls Signs or symptoms of abuse and/or No No No neglect since last visit Have you been in the hospital since your No No No last visit? Has dressing in place as prescribed Yes Yes Yes Has compression in place as prescribed No Yes Yes Has offloadiing in place as prescribed No N/A N/A Experienced any changes in pain level or No No No management Left Footwear Regular Shoe Right Footwear Regular Shoe Pain Scale: 0-10 Numeric Is Patient Pain Free? Yes Yes Yes R foot -Description Aching -Intensity 6 -Duration (hours) Acute -Pain Behavior Withdrawal from Touch -Pain Aggravating Factors ADL's -Alleviating Factors/Interventions Medication -Effectiveness of Alleviating Factor/ Moderately Intervention effective WC - Nurse 1 - General Ulcer Measurement Start: 07/20/23 09:08 Freq: Status: Active Protocol: Activity Type Activity Date Activity User E-sign Co-sign Detail Recorded Client Recorded Date Recorded By Document 07/20/23 09:08 GM Desktop 07/20/23 09:16 GM Document 07/27/23 08:26 KW Desktop 07/27/23 08:28 KW Document 08/03/23 09:26 CP Desktop 08/03/23 09:28 CP 07/20/23 07/27/23 08/03/23 09:08 08:26 09:26 Wound Center Nurse 1 Lower Limb Edema Present Yes Yes Right Calf (cm) 46.4 44.5 44.5 Right Ankle (cm) 32.4 30.0 33 Left Calf (cm) 48 46.2 46 Left Ankle (cm) 32.5 32.6 34.5 WC - Nurse 2 - General Ulcer CM Notes Start: 07/20/23 09:08 Freq: Status: Active Protocol: Activity Type Activity Date Activity User E-sign Co-sign Detail Recorded Client Recorded Date Recorded By Document 07/20/23 09:24 Laptop 07/20/23 09:25 Document 08/03/23 09:32 Laptop 08/03/23 09:33 07/20/23 08/03/23 09:24 09:32 Pain Scale: 0-10 Numeric Is Patient Pain Free? Yes Yes - Nurse 3 - General Ulcer D/C NN Start: 07/20/23 09:08 Freq: Status: Active Protocol: Activity Type Activity Date Activity User E-sign Co-sign Detail Recorded Client Recorded Date Recorded By Document 07/20/23 09:39 Desktop 07/20/23 09:41 Document 07/27/23 08:26 KW Desktop 07/27/23 08:28 07/20/23 07/27/23 09:39 08:26 Wound Care Center Nurse 3 Bilateral LE -Lotion applied to leg before Yes compression wrap -Multi-Layered Wrap Application Multi-Layer Multi-Layer Comp - Bilat ($ Comp - Bilat ($ ) ) -Other washed legs and padded with ABD for comfort Treatment Response Procedure Tolerated Well Vital Signs Temperature (97.8 F-99.1 F) 97.3 F L Temperature Source Temporal Pulse Rate (60-100) 75 Pulse Location Monitor Respiratory Rate (12-18) 18 Respiratory rate source Observation Oxygen Delivery Method Room Air Blood Pressure (90/60-120/80) 126/53 H Blood Pressure Mean (mm Hg) 77 Source Monitor Position Semi-Fowlers Blood Pressure Location Left Forearm Pain Scale: 0-10 Numeric Is Patient Pain Free? Yes Yes WC - Visit Discharge Discharge Condition Stable Stable Ambulatory Status Ambulatory Ambulatory Transportation Private Auto Private Auto Medication Reconcilliation completed & No No provided to patient/care provider Clinical Summary of Care Provided Yes Yes Assessment/Plan Assessment/Plan (1) Lymphedema: CODE(S): I89.0 - Lymphedema, not elsewhere classified PLAN: Patient was examined and evaluated. All findings were discussed with the patient. All questions were answered to the patient's satisfaction. After physical examination the patient's bilateral lower extremities are unchanged. The patient has failed conservative treatment with multi layer compression bandages. She is waiting to take delivery of her CircAid's and is working with the lymphedema pump supply company for a payment plan to purchase compression pumps. Patient has been grateful for her care. The patient will follow-up with nursing visits for dressing changes to the bilateral lower extremity and then redone. Follow-up at the wound care center with Dr. South in 2 week. (2) Other specified peripheral vascular diseases: CODE(S): I73.89 - Other specified peripheral vascular diseases (3) Pain and swelling of left lower extremity: CODE(S): M79.605 - Pain in left leg; M79.89 - Other specified soft tissue disorders (4) Pain and swelling of right lower leg: CODE(S): M79.661 - Pain in right lower leg; M79.89 - Other specified soft tissue disorders
[2023-08-10 08:14] VITALS: BP 121/82; PULSE 73; RESP 18; TEMP 36.3; BMI 39.4
== END 2023-08-16 23:59 | disposition home or self-care (01) ==
LOC: WC 08:00
PROVIDERS: PCP Internal Medicine; Referring Provider Podiatrist Foot & Ankle Surgery; Visit Provider Podiatrist Foot & Ankle Surgery
DX: I89.0 Lymphedema, not elsewhere classified (principal); M79.89 Other specified soft tissue disorders; M79.661 Pain in right lower leg; M79.605 Pain in left leg; I73.89 Other specified peripheral vascular diseases
CPT/HCPCS: 29581; 99213; G0463

== ENCOUNTER 2023-08-29 13:30 | Outpatient (RCR) | payer MEDICARE, SELFPAY ==
[2023-08-17 00:51] VITALS: BP 121/82; PULSE 73; RESP 18; TEMP 36.3; BMI 39.4
[2023-08-17 09:43] VITALS: BP 122/62; PULSE 73; RESP 16; TEMP 36.6; BMI 39.4
--- NOTE | 2023-08-17 10:49 | PCM.WC.PN ---
History of Present Illness Date of Service: 08/17/23 Chief Complaint: Bilateral leg swelling History of Wound: Bilateral leg swelling no wounds Subjective Subjective Mrs. Addy Blancas is a 62-year-old female present to wound care center follow-up and evaluation of bilateral lymphedema. Patient still has not received her CircAid wraps or pumps. Patient admits to not calling the company and also states that the companies have not called her back. She denies any open lesions or abrasions. She is doing well with her 3M multilayer compression wraps. She states improved pain to her right foot. Denies trauma. Denies constitutional symptoms. No other pedal complaints at this time. Objective Data Objective Data Vital Signs: Vital Signs Temp Pulse Resp BP 97.9 F 73 16 122/62 H 08/17/23 09:43 08/17/23 09:43 08/17/23 09:43 08/17/23 09:43 Weight: 104.326 kg Body Mass Index (BMI) 39.4 Physical Exam Narrative Vascular: DP and PT pulses are faintly palpable secondary to swelling bilateral. Nonpitting edema appreciated to bilateral lower extremity. CFT is brisk. No erythema or proximal streaking is appreciated. Skin temperature gradient is warm to warm from proximal ankle to distal digits bilateral. No focal increase is appreciated. Neurological: Light touch and epicritic station intact. Dermatological: Nonpitting edema appreciated to the bilateral lower extremity. Webspaces 1-4 are clean dry and intact. Toenails 1 through 5 within normal limits. No open lesions or abrasions. No subcutaneous nodules. Musculoskeletal: Muscle strength is 5 out of 5 in all quadrants bilateral. No pain with calf compression. Debridement Note Debridement Note Post-Debridement Measurements and Additional Note: Post-Debridement Measurements/Treatment - Nurse 1 - General Ulcer Assessment Start: 08/17/23 09:42 Freq: Status: Active Protocol: [facility] Activity Type Activity Date Activity User E-sign Co-sign Detail Recorded Client Recorded Date Recorded By Document 08/17/23 09:43 ML [id number] 08/17/23 09:45 ML 08/17/23 09:43 - Today's Visit Information Type of service Follow-up Visit (Physician/PUBLIC ADDRESS SYSTEM MECHANIC ) Arrival Mode Ambulatory Transfer Assistance None Patient Identification Verified (Name & Yes ) Patient Requires Transmission-Based No Precautions Height and Weight Body Mass Index (BMI) 39.4 BMI Classification Obese Vital Signs Temperature (97.8 F-99.1 F) 97.9 F Temperature Source Temporal Pulse Rate (60-100) 73 Pulse Location Monitor Respiratory Rate (12-18) 16 Respiratory rate source Observation Blood Pressure (90/60-120/80) 122/62 H Blood Pressure Mean (mm Hg) 82 Source Monitor Position Sitting Blood Pressure Location Left Arm History Since Last Visit- (Skip if this is Patient's initial visit) Have you changed medications since your No last visit? Any new allergies or adverse reactions No Had a fall/change in ADL's that may No increase risk of falls Signs or symptoms of abuse and/or No neglect since last visit Have you been in the hospital since your No last visit? Has dressing in place as prescribed Yes Has compression in place as prescribed Yes Has offloadiing in place as prescribed N/A Experienced any changes in pain level or No management Left Footwear Regular Shoe Right Footwear Regular Shoe Pain Scale: 0-10 Numeric Is Patient Pain Free? Yes - Nurse 1 - General Ulcer Measurement Start: 08/17/23 09:42 Freq: Status: Active Protocol: Activity Type Activity Date Activity User E-sign Co-sign Detail Recorded Client Recorded Date Recorded By Document 08/17/23 09:43 ML [id number] 08/17/23 09:45 ML 08/17/23 09:43 Wound Center Nurse 1 Right Calf (cm) 43.5 Right Ankle (cm) 30.2 Left Calf (cm) 45.5 Left Ankle (cm) 32.5 - Nurse 2 - General Ulcer CM Notes Start: 08/17/23 09:42 Freq: Status: Active Protocol: Activity Type Activity Date Activity User E-sign Co-sign Detail Recorded Client Recorded Date Recorded By Document 08/17/23 09:44 JF Laptop 08/17/23 09:44 JF 08/17/23 09:44 Pain Scale: 0-10 Numeric Is Patient Pain Free? Yes - Nurse 3 - General Ulcer D/C NN Start: 08/17/23 09:42 Freq: Status: Active Protocol: Activity Type Activity Date Activity User E-sign Co-sign Detail Recorded Client Recorded Date Recorded By Document 08/17/23 09:53 KW Desktop 08/17/23 09:54 KW 08/17/23 09:53 Wound Care Center Nurse 3 Left -Tubular Bandage Double Layer -Size of Tubigrip Used Size E -Size E ($) 2 RT LOW EXT -Tubular Bandage Double Layer -Size of Tubigrip Used Size E -Size E ($) 2 Pain Scale: 0-10 Numeric Is Patient Pain Free? Yes WC - Visit Discharge Discharge Condition Stable Ambulatory Status Ambulatory Transportation Private Auto Medication Reconcilliation completed & No provided to patient/care provider Clinical Summary of Care Provided Yes Assessment/Plan Assessment/Plan (1) Lymphedema: CODE(S): I89.0 - Lymphedema, not elsewhere classified PLAN: Patient was examined and evaluated. All findings were discussed with the patient. All questions were answered to the patient's satisfaction. The patient's bilateral legs will be placed in a double layer Tubigrip so the patient can shower. Educated the patient that if she noticed any redness, open wounds or concerns for soft tissue breakdown she is to call the wound care center and report for bilateral 3M multilayer compression wraps with nursing staff. She was understanding of this. Was educated the patient to call regarding the CircAid's and the pump and we at the wound care center will also call to help the patient expedite this process. She was grateful for the care. Patient will follow-up in [address] South and call the wound care center if she needs to follow-up with nursing staff. Follow-up at the wound care center with Dr. South in 2 week. (2) Other specified peripheral vascular diseases: CODE(S): I73.89 - Other specified peripheral vascular diseases (3) Pain and swelling of left lower extremity: CODE(S): M79.605 - Pain in left leg; M79.89 - Other specified soft tissue disorders (4) Pain and swelling of right lower leg: CODE(S): M79.661 - Pain in right lower leg; M79.89 - Other specified soft tissue disorders
[2023-08-29 13:14] VITALS: BP 129/65; PULSE 96; RESP 20; TEMP 36.3; BMI 39.4
== END 2023-09-16 23:59 | disposition home or self-care (01) ==
LOC: WC 13:30
PROVIDERS: PCP Internal Medicine; Referring Provider Podiatrist Foot & Ankle Surgery; Visit Provider Podiatrist Foot & Ankle Surgery
DX: I89.0 Lymphedema, not elsewhere classified (principal); I73.89 Other specified peripheral vascular diseases; M79.605 Pain in left leg; M79.661 Pain in right lower leg; M79.89 Other specified soft tissue disorders
CPT/HCPCS: 99211; 99213; G0463

== ENCOUNTER → 2023-10-03 | Outpatient (CLI) | payer MEDICARE, SELFPAY ==
--- NOTE | 2023-10-03 09:30 | MRI_ITS ---
STUDY: MRI LUMBAR SPINE WITHOUT CONTRAST REASON FOR EXAM: Female, 62 years old. SPONDYLOSIS TECHNIQUE: Standardized fat and water weighted pulse sequences were obtained in the sagittal and axial planes. COMPARISON: X-ray the lumbar spine dated March 21, 2023 FINDINGS: Predominance of red marrow elements likely related to the patient''s underlying hematologic status. Multiple benign fatty hemangiomas are present in the vertebral bodies. Mixed fatty and cellular hemangioma is present at posterior aspect of the L2 vertebral body. No acute fracture or compression deformity or active marrow edema is present. Small simple cysts are present in both kidneys which does not requiring additional assessment. Normal lumbar lordosis. There is no substantial scoliosis. Normal conus medullaris that terminates at the T12-L1 level. T12-L1: Normal endplates. Normal disc height, hydration and morphology. Normal bilateral facet joints. Normal central canal and bilateral lateral recesses. Normal bilateral intervertebral neural foramina. L1-2: Normal endplates. Normal disc height, hydration and morphology. Normal bilateral facet joints. Normal central canal and bilateral lateral recesses. Normal bilateral intervertebral neural foramina. L2-3: Moderate disc space narrowing with broad-based disc herniation. Mild central canal stenosis and bilateral lateral recess stenosis, with left nerve root impingement. Normal right neural foramen. Mild to moderate left foraminal stenosis with nerve root impingement. Normal bilateral facet joints. L3-4: Diffuse disc desiccation with moderate to significant disc space narrowing and posterior annular bulging. Mild endplate spurring. Mild facet joint hypertrophy. Mild to moderate bilateral foraminal stenosis with posterior nerve root impingement. Normal central canal and bilateral lateral recesses. L4-5: Mild to moderate Modic endplate degenerative signal. Mild endplate spurring. Mild disc space narrowing with minimal left asymmetric annular bulging with left lateral recess stenosis and impingement of descending nerve root. Normal central canal and right lateral recess. Normal bilateral facet joints. Normal bilateral intervertebral neural foramina. L5-S1: Normal endplates. Normal disc height, hydration and morphology. Normal bilateral facet joints. Normal central canal and bilateral lateral recesses. Normal bilateral intervertebral neural foramina. Normal visualized sacral ala. Normal visualized paraspinous soft tissue structures. MRI/Spine Lumbar (Routine) IMPRESSION: 1. Multilevel degenerative changes, as described above. Electronically Signed: Gary Cortez MD at 9:41 EDT ,
== END | disposition home or self-care (01) ==
PROVIDERS: PCP Internal Medicine; Referring Provider Anesthesiology Pain Medicine; Visit Provider Anesthesiology Pain Medicine
DX: M47.816 Spondylosis without myelopathy or radiculopathy, lumbar region (principal)
CPT/HCPCS: 72148

== ENCOUNTER → 2024-01-23 | Outpatient (CLI) | payer MEDICARE, SELFPAY ==
[2024-01-23 16:28] LABS: Absolute Neutrophil Count 3.6 X10^3/uL (2.0-7.7); Basophil# 0.04 X10^3/uL; Basophil% 0.6 % (0-1); Eosinophil# 0.17 X10^3/uL; Eosinophils% 2.8 % (0-5); Hematocrit 38.3 % (37-47); Hemoglobin 12.2 g/dL (12.0-15.0); Lymphocyte % 30.7 % (19-41); Mean Corp Hgb Conc 31.9 g/dL (32-36); Mean Corpuscular Hgb 29.7 pg (27.0-32.0); Mean Corpuscular Volume 93.2 fL (81-99); Mean Platelet Vol. 9.5 fl (6.2-12.0); Monocyte# 0.43 X10^3/uL; NRBC Flagged by Analyzer 0 % (0-5); Neutrophil # 3.62 X10^3/uL (2.7-7.7); Neutrophil % 58.6 % (47-70); Platelet Count 251 K/mm3 (150-450); RBC Distribution Width CV 11.9 % (11.6-14.6); Red Blood Count 4.11 M/mm3 (4.2-5.4); White Blood Count 6.2 K/mm3 (4.4-11.0)
[2024-01-23 16:39] LABS: International Normalized Ratio 2.6; Prothrombin Time (Protime)PT. 27.8 SECONDS (11.7-14.9)
[2024-01-23 17:03] LABS: ALB/GLOB Ratio 0.9 RATIO (0.9-2.4); AST(SGOT) 24 U/L (15-37); Alanine Aminotransfer ALT/SGPT 26 U/L (13-56); Albumin, Serum 3.5 g/dL (3.2-5.0); Alkaline Phosphatase 94 U/L (45-117); Anion Gap 6 (5-15); BUN 12 mg/dL (7-18); BUN/Creat Ratio 16.2 RATIO (10-20); Calcium,Total 9.2 mg/dL (8.5-10.1); Chloride 105 mmol/L (98-107); Cholesterol 241 mg/dL (200); Creatinine, Serum 0.74 mg/dL (0.55-1.02); EST Glomerular Filtration Rate 84 mL/min (>60); Est Glom Filt Rate - Afr Amer 101 mL/min (>60); Globulin 3.8 g/dL (2.2-4.2); Glucose 88 mg/dL (74-106); High Density Lipoprotein 50 mg/dL; Potassium 4.1 mmol/L (3.5-5.1); Protein, Total 7.3 g/dL (6.4-8.2); Sodium Level 140 mmol/L (136-145); Triglycerides 207 mg/dL; Very Low Density Lipoprotein 41 mg/dL (5-40)
== END | disposition home or self-care (01) ==
LOC: BIMLAB 15:00
PROVIDERS: PCP Internal Medicine; Referring Provider Internal Medicine; Visit Provider Internal Medicine
DX: E03.9 Hypothyroidism, unspecified (principal); Z79.01 Long term (current) use of anticoagulants
CPT/HCPCS: 36415; 80053; 80061; 84443; 85025; 85610

== ENCOUNTER → 2024-02-06 | Outpatient (CLI) | payer MEDICARE, SELFPAY ==
--- NOTE | 2024-02-06 10:01 | STRESSREP ---
Stress Test Report Date: 02/06/2024 Procedure: Pharmacologic stress nuclear imaging study Indications: Chest pain Consent: Per the patient Procedure: The patient underwent pharmacologic (Regadenoson 0.4mg ) evaluation with a peak heart rate of 81 beats per minute (51%predicted maximal heart rate) and a peak blood pressure of 124/78 mmHg. The baseline ECG demonstrated sinus rhythm. The peak pharmacologic ECG demonstrated no ischemic changes. There were no cardiac dysrhythmias pretest, during pharmacologic infusion, or recovery. There was no complaint of chest discomfort during pharmacologic infusion or recovery. The patient was injected with 9.5 millicuries of technetium 99m Cardiolite and subsequently rest SPECT Cardiolite nuclear imaging was obtained in the horizontal long, vertical long, and short axis views. The patient underwent pharmacologic (Regadenoson) evaluation. The patient was injected with 33.1 millicuries of technetium 99m Cardiolite and subsequently stress SPECT Cardiolite nuclear imaging was obtained in the horizontal long, vertical long, and short axis views. A gated Cardiolite study at peak stress was obtained. The examination was stopped secondary to completion of protocol. Rest and stress SPECT Cardiolite nuclear imaging status post realignment, normalization, and attenuation correction demonstrate no fixed or reversible perfusion defects. There is end systolic thickening and brightening. The gated Cardiolite study demonstrates myocardial thickening and inward wall motion. The reported LVEF is 85%. Impression: 1. Pharmacologic (Regadenoson) evaluation 2. Peak pharmacologic ECG with no diagnostic ischemic changes. 3. There were no cardiac dysrhythmias pretest, during pharmacologic infusion, or recovery. 5. Rest and stress SPECT Cardiolite nuclear imaging demonstrate relative uniform tracer uptake and myocardial perfusion appearing within normal limits. 6. The gated Cardiolite study reports an LVEF of 85%. This note was generated with [employer] software. It may contain incorrect words, spelling, and punctuation that were not noted in checking the note before signing.
== END | disposition home or self-care (01) ==
PROVIDERS: PCP Internal Medicine; Referring Provider Internal Medicine; Visit Provider Internal Medicine
DX: R07.9 Chest pain, unspecified (principal)
CPT/HCPCS: 78452; 93017; A9500; A4216; J2785

== ENCOUNTER → 2024-06-27 | Outpatient (CLI) | payer MEDICARE, SELFPAY ==
[2024-06-27 12:24] LABS: Absolute Lymphocyte Count 1.77 X10^3/uL (0.83-4.51); Absolute Neutrophil Count 2.5 X10^3/uL (2.0-7.7); Basophil# 0.04 X10^3/uL; Basophil% 0.8 % (0-1); Eosinophil# 0.15 X10^3/uL; Eosinophils% 3.1 % (0-5); Hematocrit 38.1 % (37-47); Hemoglobin 12.2 g/dL (12.0-15.0); Lymphocyte # 1.77 X10^3/ul (0.83-4.51); Lymphocyte % 36.1 % (19-41); Mean Corpuscular Hgb 30.6 pg (27.0-32.0); Mean Corpuscular Volume 95.5 fL (81-99); Mean Platelet Vol. 9.9 fl (6.2-12.0); Monocyte# 0.44 X10^3/uL; NRBC Flagged by Analyzer 0 % (0-5); Neutrophil # 2.49 X10^3/uL (2.7-7.7); Neutrophil % 50.8 % (47-70); Platelet Count 212 K/mm3 (150-450); RBC Distribution Width CV 11.8 % (11.6-14.6); RBC Distribution Width SD 41.1 fl (35.1-43.9); Red Blood Count 3.99 M/mm3 (4.2-5.4); White Blood Count 4.9 K/mm3 (4.4-11.0)
[2024-06-27 13:08] LABS: ALB/GLOB Ratio 1.3 RATIO (0.9-2.4); AST(SGOT) 30 U/L (<=31); Alanine Aminotransfer ALT/SGPT 22 U/L (<=34); Albumin, Serum 4.2 g/dL (3.4-4.8); Alkaline Phosphatase 103 U/L (35-104); Anion Gap 11 (5-15); BUN 18 mg/dL (4-19); BUN/Creat Ratio 26.5 RATIO (10-20); Calcium,Total 9.3 mg/dL (7.6-11.0); Carbon Dioxide 24.7 mmol/L (21.0-32.0); Chloride 105 mmol/L (98-108); Cholesterol 217 mg/dL (<=200); EST Glomerular Filtration Rate 97 (>60); Globulin 3.1 g/dL (2.2-4.2); Glucose 91 mg/dL (70-99); High Density Lipoprotein 55 mg/dL; Low Density Lipoprotein Calc. 142 mg/dL; Potassium 4.3 mmol/L (3.3-5.1); Protein, Total 7.3 g/dL (5.9-8.4); Sodium Level 140 mmol/L (133-145); Total Bilirubin 0.54 mg/dL (0.00-1.30); Triglycerides 103 mg/dL; Very Low Density Lipoprotein 21 mg/dL (5-40); cholesterol:hdl ratio screen 3.98
== END | disposition home or self-care (01) ==
LOC: BIMLAB 09:52
PROVIDERS: PCP Internal Medicine; Referring Provider Internal Medicine; Visit Provider Internal Medicine
DX: E03.9 Hypothyroidism, unspecified (principal)
CPT/HCPCS: 36415; 80053; 80061; 84443; 85025

== ENCOUNTER → 2025-03-04 | Outpatient (CLI) | payer MEDICARE, SELFPAY ==
[2025-03-04 12:39] LABS: Hematocrit 40.3 % (37-47); Hemoglobin 13.1 g/dL (12.0-15.0); Immature Granulocytes Count 0.020 X10^3/uL (0.0-0.0); Mean Corp Hgb Conc 32.5 g/dL (32-36); Mean Corpuscular Volume 93.9 fL (81-99); Mean Platelet Vol. 9.6 fl (6.2-12.0); NRBC Flagged by Analyzer 0 % (0-5); Platelet Count 259 K/mm3 (150-450); RBC Distribution Width CV 11.9 % (11.6-14.6); RBC Distribution Width SD 41.1 fl (35.1-43.9); Red Blood Count 4.29 M/mm3 (4.2-5.4); White Blood Count 6.9 K/mm3 (4.4-11.0)
--- NOTE | 2025-03-04 13:30 | RAD_ITS ---
PROCEDURE: CERV SPINE 4 OR 5 VIEWS 03/04/2025 REASON FOR EXAM: CERVICAL SPONDYLOSIS TECHNIQUE: Procedure Code: [facility] Modality: DX Procedure: CERV SPINE 4 OR 5 VIEWS FINDINGS: No acute fracture. Minimal grade 1 anterolisthesis of C3 on C4 and C4 on C5. [id number] disc space narrowing is noted throughout the cervical spine, with small anterior osteophytes. The relationship of C1 on C2 appears normal. The prevertebral soft tissues are unremarkable. RAD/Cerv Spine 4 or 5 Views IMPRESSION: As above. Reading Location: [id number]
[2025-03-04 13:44] LABS: Cholesterol 246 mg/dL (<=200); Low Density Lipoprotein Calc. 145 mg/dL; Triglycerides 259 mg/dL; Very Low Density Lipoprotein 52 mg/dL (5-40); cholesterol:hdl ratio screen 4.59
[2025-03-04 13:47] LABS: AST(SGOT) 25 U/L (<=31); Alanine Aminotransfer ALT/SGPT 18 U/L (<=34); Albumin, Serum 4.2 g/dL (3.4-4.8); Alkaline Phosphatase 91 U/L (35-104); Anion Gap 11 (5-15); BUN 23 mg/dL (4-19); BUN/Creat Ratio 22.8 RATIO (10-20); Calcium,Total 9.4 mg/dL (7.6-11.0); Carbon Dioxide 26.6 mmol/L (21.0-32.0); Chloride 104 mmol/L (98-108); Globulin 3.3 g/dL (2.2-4.2); Glucose 100 mg/dL (70-99); Potassium 4.4 mmol/L (3.3-5.1)
== END | disposition home or self-care (01) ==
PROVIDERS: PCP Internal Medicine; Referring Provider Internal Medicine; Visit Provider Internal Medicine
DX: M47.812 Spondylosis without myelopathy or radiculopathy, cervical region (principal); E03.9 Hypothyroidism, unspecified
CPT/HCPCS: 36415; 72050; 80053; 80061; 84443; 85025